=== PATIENT | female | born 1950 | race Caucasian/White ===

== ENCOUNTER → 2019-01-20 | Outpatient (CLI) | payer MEDICARE, OTHER ==
[2019-01-20 14:37] VITALS: RESP 16; BMI 44.0
[2019-01-20 15:33] LABS: HCT 41.5 % (34.0-46.0); HGB 13.6 gm/dL (11.4-16.0); MCH 29.9 pg (25.0-35.0); MCHC 32.8 g/dL (31.0-37.0); Mean Platelet Volume 7.1; Platelet Count 251 k/uL (150-450); RBC 4.56 m/uL (3.80-5.40); RDW 12.9 % (11.5-15.5)
--- NOTE | 2019-01-20 16:31 | P.HPBAR ---
Bariatric H&P - History & Physicial H&P Date: 01/20/19 History & Physicial: Visit/CC: Initial Visit Patient initial contact: Initial weight: 119.068 kg Initial weight in pounds: 262.50 Height: 5 ft 4.75 in Initial BMI: 44.0 Last weight: Current weight: 119.068 kg Current weight in pounds: 262.50 Current BMI: 44.0 [place] body weight (based on NIH guidelines): 56.132 kg Excess body weight loss: 0.0% The patient is a 68 year-old F who presents for Bariatric Assessment. Patient rents today for initial consultation. Patient has had lifetime problems obesity. Her BMI is 44. She is interested in the sleeve gastrectomy. Past Medical History Past Medical History: Diabetes Mellitus, Hyperlipidemia, Hypertension, Thyroid Disorder Additional Past Medical History / Comment(s): Type 2 DM, hypothyroidism, History of Any Multi-Drug Resistant Organisms: None Reported Past Psychological History: Depression Additional Psychological History / Comment(s): Takes 60 mg of prozac daily. Smoking Status: Former smoker Surgical - Exam Vital Signs Resp 16 01/20/19 14:32 - General well developed, well nourished, no distress - Eyes PERRL - ENT normal pinna - Neck no masses - Respiratory normal expansion - Cardiovascular Rhythm: regular - Abdomen Abdomen: soft, non tender Results - Labs 01/20/19 15:01 Bariatric Assessment & Plan Plan: RBC with BMI of 44. Patient will be scheduled for EGD. Patient has a good understanding of the sleeve gastrectomy. We went over the risks and benefits of procedure including gastric injury, GERD, dysphagia. Bariatric Checklist Checklist: Plan: Checklist: EGD: 1. Hiatal hernia: 2. H. Pylori: HgbA1c: Vitamin D: Smoking: Former smoker Primary care physician referral: Dr. Rhianna Lopez Psychiatry clearance: Cardiology clearance: Sleep study: Diet journal: VTE risk score: VTE risk level: Rehab needs at discharge:
[2019-01-20 23:36] LABS: Vitamin D 25 Hydroxy 28.5 ng/mL (30.0-100.0)
[2019-01-20 23:38] LABS: African American GFR (CKD) 75.6 (60.0-200.0); Albumin 4.5 g/dL (3.80-4.90); Albumin/Globulin Ratio 1.96 (1.60-3.17); Anion Gap 9.5 mmol/L (4.00-12.00); BUN/Creat Ratio 18.89 Ratio (12.00-20.00); Calcium 10.4 mg/dL (8.7-10.3); Carbon Dioxide 25.5 mmol/L (21.6-31.8); Globulin 2.3 g/dL (1.6-3.3); Non-African American GFR(CKD) 65.2 (60.0-200.0); Potassium 5.3 mmol/L (3.5-5.5); Total Bilirubin 0.3 mg/dL (0.3-1.2); Total Protein 6.8 g/dL (6.2-8.2)
[2019-01-21 02:16] LABS: Hemoglobin A1C 7.9 % (4.0-6.0)
== END ==
LOC: BARWHC3 14:17
PROVIDERS: ATTEND Surgery
DX: E66.01 Morbid (severe) obesity due to excess calories (principal); E44.0 Moderate protein-calorie malnutrition; E55.9 Vitamin D deficiency, unspecified; Z01.818 Encounter for other preprocedural examination; Z68.41 Body mass index [BMI] 40.0-44.9, adult; Z87.891 Personal history of nicotine dependence
CPT/HCPCS: 80053; 82607; 84443; 85027; 82306; 83036; 93005; G0463; 99211

== ENCOUNTER → 2019-03-10 | Outpatient (CLI) | payer MEDICARE, OTHER ==
[2019-03-10 13:37] VITALS: BMI 43.8
== END ==
LOC: BARWHC3 08:46
PROVIDERS: ATTEND Surgery
DX: E66.01 Morbid (severe) obesity due to excess calories (principal); Z68.41 Body mass index [BMI] 40.0-44.9, adult
CPT/HCPCS: 97804

== ENCOUNTER → 2019-04-21 | Day surgery (SDC) | payer MEDICARE, OTHER ==
[2019-04-17 17:58] VITALS: BMI 44.1
[~2019-04-21] MED LIST: INSULIN ASPART (NovoLOG) 100 UNIT/ML VIAL SQ ONE; LACTATED RINGERS 1,000 ML IV ONE; LACTATED RINGERS 1,000 ML IV SCH; LIDOCAINE 1% 20 ML VIAL (10MG/ML) FOR IV START INTRADERMA ONE; LIDOCAINE 1% INJ 10MG/ML (20 ML MDV) ONE; MIDAZOLAM 2 MG/2 ML VIAL ONE; PROPOFOL 10 MG/ML 20 ML VIAL IV ONE; fentaNYL (PF) 50 MCG/ML 2 ML AMP ONE
[2019-04-21 09:38] VITALS: TEMP 97.4
[2019-04-21 09:50] LABS: Glucose,Whole Blood 217 mg/dL (75-99)
--- NOTE | 2019-04-21 10:45 | P.GSHP ---
History of Present Illness H&P Date: 04/21/19 Chief Complaint: Morbid obesity This is a 68-year-old female undergoing workup for sleeve gastric. Patient is obese. Her BMI is 44. Past Medical History Past Medical History: Diabetes Mellitus, Hyperlipidemia, Hypertension, Skin Diso rder, Sleep Apnea/CPAP/BIPAP, Thyroid Disorder Additional Past Medical History / Comment(s): lupus, gets rash on face that comes and goes, doesn't use CPAP History of Any Multi-Drug Resistant Organisms: None Reported Past Surgical History: Breast Surgery, Orthopedic Surgery, Tubal Ligation Additional Past Surgical History / Comment(s): breast reduction, ORIF rt ankle, cyst removed from left breast, dex cataracts, eye surgery for scar tissue dex eyes after cataract surgery Past Anesthesia/Blood Transfusion Reactions: No Reported Reaction Smoking Status: Former smoker - Past Family History Mother Family Medical History: Cancer Father Family Medical History: Cancer Medications and Allergies Home Medications Medication Instructions Recorded Confirmed Type Atorvastatin [Lipitor] 20 mg PO HS 01/20/19 04/17/19 History FLUoxetine HCL 20 mg PO HS 01/20/19 04/17/19 History FLUoxetine HCL [PROzac] 40 mg PO DAILY 01/20/19 04/17/19 History Levothyroxine Sodium [Synthroid] 125 mcg PO DAILY 01/20/19 04/17/19 History Lisinopril [Prinivil] 20 mg PO 1300 01/20/19 04/17/19 History glipiZIDE [Glucotrol] 10 mg PO AC-BRKFST 01/20/19 04/17/19 History metFORMIN HCL 1,000 mg PO BID 01/20/19 04/17/19 History sitaGLIPtin [Januvia] 100 mg PO DAILY 01/20/19 04/17/19 History Nystatin 1 applic TOPICAL DIRECTED 03/10/19 04/17/19 History Allergies Allergy/AdvReac Type Severity Reaction Status Date / Time No Known Allergies Allergy Verified 04/17/19 17:38 Surgical - Exam Vital Signs Temp Pulse Resp BP Pulse Ox 97.4 F L 76 18 159/77 98 04/21/19 09:37 04/21/19 09:37 04/21/19 09:37 04/21/19 09:37 04/21/19 09:37 - General well developed, well nourished, no distress - Eyes PERRL - ENT normal pinna - Neck no masses - Respiratory normal expansion - Cardiovascular Rhythm: regular - Abdomen Abdomen: soft, non tender Results - Labs Abnormal Lab Results - Last 24 Hours (Table) 04/21/19 Range/Units 09:48 POC Glucose (mg/dL) 217 H (75-99) mg/dL Assessment and Plan Assessment: Morbid obesity. We'll perform EGD.
--- NOTE | 2019-04-21 10:51 | P.OP ---
Date of Procedure: 04/21/19 Preoperative Diagnosis: Morbid obesity Postoperative Diagnosis: Morbid obesity Antral gastritis Procedure(s) Performed: EGD Anesthesia: MAC Surgeon: Hung Carpio Pathology: other (Antrum) Condition: stable Disposition: PACU Description of Procedure: The patient's placed on the endoscopy table lateral position. She received IV sedation. The gastroscope placed oropharynx passed in the esophagus and stomach. Scope was then placed through the pylorus. The first and second portion of the duodenum appeared normal. Scope was then brought back the antrum this. Mildly inflamed. A biopsies performed. Scope was then retroflexed and the remainder stomach appeared normal. The GE junction was at 47 is. The distal esophagus appeared normal. The proximal esophagus appeared normal. Scope withdrawn for patient.
[2019-04-21 10:57] VITALS: RESP 16
[2019-04-21 11:07] VITALS: BP 107/73; PULSE 65
[2019-04-21 11:09] LABS: Glucose,Whole Blood 179 mg/dL (75-99)
== END | disposition home or self-care (01) ==
LOC: ORWHC2ENDO 09:15
PROVIDERS: ATTEND Surgery
DX: K29.50 Unspecified chronic gastritis without bleeding (principal); E66.01 Morbid (severe) obesity due to excess calories; I10 Essential (primary) hypertension; E11.9 Type 2 diabetes mellitus without complications; E78.5 Hyperlipidemia, unspecified; F32.9 Major depressive disorder, single episode, unspecified; G47.30 Sleep apnea, unspecified; E07.9 Disorder of thyroid, unspecified; M32.9 Systemic lupus erythematosus, unspecified; Z99.89 Dependence on other enabling machines and devices; Z98.890 Other specified postprocedural states; Z98.51 Tubal ligation status; Z98.41 Cataract extraction status, right eye; Z98.42 Cataract extraction status, left eye; Z87.891 Personal history of nicotine dependence; Z79.899 Other long term (current) drug therapy; Z79.84 Long term (current) use of oral hypoglycemic drugs; Z79.890 Hormone replacement therapy; Z68.41 Body mass index [BMI] 40.0-44.9, adult
CPT/HCPCS: 88305; 43239; J2250; J2001; J3010; J2704

== ENCOUNTER → 2019-05-19 | Outpatient (CLI) | payer MEDICARE, OTHER ==
[2019-05-19 13:29] VITALS: BP 126/87; PULSE 84; TEMP 97.8; BMI 43.7
--- NOTE | 2019-07-06 12:56 | P.HPBAR ---
Bariatric H&P - History & Physicial H&P Date: 05/19/19 History & Physicial: Visit/CC: EGD review, presurgical consultation Patient initial contact: Initial weight: 119.068 kg Initial weight in pounds: 262.50 Height: 5 ft 4.75 in Initial BMI: 44.0 Last weight: Current weight: 118.388 kg Current weight in pounds: 261.00 Current BMI: 43.7 [place] body weight (based on NIH guidelines): 56.132 kg Excess body weight loss: 1.0% The patient is a 68 year-old F who presents for Bariatric Assessment. She presents today for presurgical consultation. She has an excellent understanding of the sleeve gastrectomy. Her BMI is 43. Patient is aware the risks of surgery including conversion to the open procedure injury to the stomach liver spleen vagotomy dysphagia and recurrent GERD symptoms. She is also aware the risk of gastric staple line disruption, bleeding or scarring. Past Medical History Past Medical History: Diabetes Mellitus, Hyperlipidemia, Hypertension, Skin Disorder, Sleep Apnea/CPAP/BIPAP, Thyroid Disorder Additional Past Medical History / Comment(s): lupus, gets rash on face that comes and goes, doesn't use CPAP History of Any Multi-Drug Resistant Organisms: None Reported Past Surgical History: Breast Surgery, Orthopedic Surgery, Tubal Ligation Additional Past Surgical History / Comment(s): breast reduction, ORIF rt ankle, cyst removed from left breast, dex cataracts, eye surgery for scar tissue dex eyes after cataract surgery Past Anesthesia/Blood Transfusion Reactions: No Reported Reaction Past Psychological History: Depression Additional Psychological History / Comment(s): . Smoking Status: Former smoker Past Alcohol Use History: Rare Additional Past Alcohol Use History / Comment(s): quit smoking 2011, smoked for 5 yrs, 1 PPD Past Drug Use History: None Reported - Past Family History Mother Family Medical History: Cancer Father Family Medical History: Cancer Surgical - Exam Vital Signs Temp Pulse BP 97.8 F 84 126/87 05/19/19 13:26 05/19/19 13:26 05/19/19 13:26 - General well developed, well nourished, no distress - Eyes PERRL - Abdomen Abdomen: soft, non tender Bariatric Assessment & Plan Plan: Morbid obesity BMI 43. Patient will be scheduled for sleeve gastrectomy. QUESTIONS WERE ANSWERED IN THE OFFICE. Bariatric Checklist Checklist: Plan: Checklist: EGD: 1. Hiatal hernia: 2. H. Pylori: HgbA1c: Vitamin D: Smoking: Former smoker Primary care physician referral: Rhianna Lopez ([employer] in [place]) Psychiatry clearance: Cardiology clearance: Sleep study: Diet journal: VTE risk score: VTE risk level: Rehab needs at discharge:
== END | disposition home or self-care (01) ==
LOC: BARWHC3 12:57
PROVIDERS: ATTEND Surgery
DX: E66.01 Morbid (severe) obesity due to excess calories (principal); Z68.41 Body mass index [BMI] 40.0-44.9, adult; Z87.891 Personal history of nicotine dependence; Z98.51 Tubal ligation status
CPT/HCPCS: 80053; 85025; 99211

== ENCOUNTER → 2019-05-19 | Outpatient (CLI) | payer MEDICARE, OTHER ==
[2019-05-19 16:30] LABS: Basophils # (A) 0.1 k/uL (0-0.2); Basophils % (A) 1 %; Eosinophils # (A) 0.2 k/uL (0-0.7); Eosinophils % (A) 2 %; HCT 44.1 % (34.0-46.0); HGB 14.1 gm/dL (11.4-16.0); Lymphocytes # (A) 1.7 k/uL (1.0-4.8); Lymphocytes % (A) 21 %; MCH 29.3 pg (25.0-35.0); MCHC 32.1 g/dL (31.0-37.0); MCV 91.3 fL (80.0-100.0); Mean Platelet Volume 7.6; Monocytes # (A) 0.6 k/uL (0-1.0); Monocytes % (A) 8 %; Neutrophils # (A) 5.3 k/uL (1.3-7.7); Neutrophils % (A) 66 %; Platelet Count 255 k/uL (150-450); RBC 4.83 m/uL (3.80-5.40); RDW 12.7 % (11.5-15.5)
[2019-05-19 16:45] LABS: Albumin 4.6 g/dL (3.5-5.0); Calcium 10.4 mg/dL (8.4-10.2); Potassium 5.2 mmol/L (3.5-5.1); Total Bilirubin 0.7 mg/dL (0.2-1.3); Total Protein 7.9 g/dL (6.3-8.2)
== END ==
LOC: LABPAT 14:21
PROVIDERS: ATTEND Surgery
DX: Z01.812 Encounter for preprocedural laboratory examination (principal)
CPT/HCPCS: 80053; 85025

== ENCOUNTER 2019-06-05 07:40 | Inpatient (IN) | payer MEDICARE, OTHER ==
[~2019-06-05 07:40] MED LIST changes: +DEXAMETHASONE SOD PHOSPHATE 10 MG/ML 1 ML VIAL IV ONE; +ENOXAPARIN 40 MG/0.4 ML SYRINGE SQ ONE; -INSULIN ASPART (NovoLOG) 100 UNIT/ML VIAL SQ ONE; -LACTATED RINGERS 1,000 ML IV ONE; -LACTATED RINGERS 1,000 ML IV SCH; -LIDOCAINE 1% 20 ML VIAL (10MG/ML) FOR IV START INTRADERMA ONE; +LIDOCAINE 1% 20 ML VIAL (10MG/ML) FOR IV START INTRADERMA PRN; -LIDOCAINE 1% INJ 10MG/ML (20 ML MDV) ONE; +MIDAZOLAM 2 MG/2 ML VIAL IV PRN; -MIDAZOLAM 2 MG/2 ML VIAL ONE; +ONDANSETRON 4 MG/2 ML VIAL IVP ONE; -PROPOFOL 10 MG/ML 20 ML VIAL IV ONE; +SCOPOLAMINE 1.5MG/72HR PATCH TRANSDERM ONE; -fentaNYL (PF) 50 MCG/ML 2 ML AMP ONE
[2019-06-05 09:14] LABS: Glucose,Whole Blood 116 mg/dL (75-99)
--- NOTE | 2019-06-05 09:19 | P.GSHP ---
History of Present Illness H&P Date: 06/05/19 Chief Complaint: morbid obesity this is a 68-year-old female who presents today for laparoscopic sleeve yesterday. Patient morbidly obese. Her BMI is 43. Patient's had lifetime problems obesity. Patient went versus surgery including conversion to the open procedure and injury to the stomach liver spleen. She also a risk of gastric staple line disruption, bleeding or scarring. Past Medical History Past Medical History: Diabetes Mellitus, Hyperlipidemia, Hypertension, Skin Disorder, Sleep Apnea/CPAP/BIPAP, Thyroid Disorder Additional Past Medical History / Comment(s): lupus, gets rash on face that co mes and goes, doesn't use CPAP History of Any Multi-Drug Resistant Organisms: None Reported Past Surgical History: Breast Surgery, Orthopedic Surgery, Tubal Ligation Additional Past Surgical History / Comment(s): breast reduction, ORIF rt ankle, cyst removed from left breast, dex cataracts, eye surgery for scar tissue dex eyes after cataract surgery. Colonoscopy. EGD Past Anesthesia/Blood Transfusion Reactions: No Reported Reaction Smoking Status: Former smoker - Past Family History Mother Family Medical History: Cancer Father Family Medical History: Cancer Medications and Allergies Home Medications Medication Instructions Recorded Confirmed Type Atorvastatin [Lipitor] 20 mg PO HS 01/20/19 06/03/19 History FLUoxetine HCL 20 mg PO HS 01/20/19 06/03/19 History FLUoxetine HCL [PROzac] 40 mg PO DAILY 01/20/19 06/03/19 History Levothyroxine Sodium [Synthroid] 125 mcg PO DAILY 01/20/19 06/03/19 History Lisinopril [Prinivil] 20 mg PO 1300 01/20/19 06/03/19 History glipiZIDE [Glucotrol] 10 mg PO AC-BRKFST 01/20/19 06/03/19 History metFORMIN HCL 1,000 mg PO BID 01/20/19 06/03/19 History sitaGLIPtin [Januvia] 100 mg PO DAILY 01/20/19 06/03/19 History Nystatin 1 applic TOPICAL DIRECTED PRN 03/10/19 06/03/19 History Allergies Allergy/AdvReac Type Severity Reaction Status Date / Time No Known Allergies Allergy Verified 06/03/19 15:18 Surgical - Exam Vital Signs Temp Pulse Resp BP Pulse Ox 98.6 F 81 18 120/83 95 06/05/19 08:59 12/19/19 08:59 06/05/19 08:59 06/05/19 08:59 06/05/19 08:59 BMI 43 - General well developed, well nourished, no distress - Eyes PERRL - ENT normal pinna - Neck no masses, no bruits - Respiratory normal expansion - Cardiovascular Rhythm: regular - Abdomen Abdomen: soft, non tender Results - Labs Abnormal Lab Results - Last 24 Hours (Table) 06/05/19 Range/Units 09:13 POC Glucose (mg/dL) 116 H (75-99) mg/dL Assessment and Plan Assessment: morbid obesity, BMI 43. We'll perform laparoscopic sleeve gastrectomy.
[2019-06-05] MEDS ORDERED: LACTATED RINGERS 1,000 ML IV ONE (09:22)
[2019-06-05] MEDS ORDERED: MIDAZOLAM 2 MG/2 ML VIAL ONE (09:44)
[2019-06-05] MEDS ORDERED: NEOSTIGMINE 1 MG/ML 10 ML VIAL ONE (09:44)
[2019-06-05] MEDS ORDERED: ePHEDrine SULFATE/0.9% NACL/PF 50 MG/5 ML SYRINGE IV ONE (09:44)
[2019-06-05] MEDS ORDERED: PROPOFOL 10 MG/ML 20 ML VIAL IV ONE (09:44)
[2019-06-05] MEDS ORDERED: ROCURONIUM BROMIDE 10 MG/ML 10 ML VIAL IV ONE (09:44)
[2019-06-05] MEDS ORDERED: LIDOCAINE 1% INJ 10MG/ML (20 ML MDV) ONE (09:44)
[2019-06-05] MEDS ORDERED: fentaNYL (PF) 50 MCG/ML 2 ML AMP ONE (09:44)
[2019-06-05] MEDS ORDERED: SUCCINYLCHOLINE CHLORIDE 100 MG/5 ML SYR IV ONE (09:44)
[2019-06-05] MEDS ORDERED: HYDROmorphone (PF) 1 MG/ML ONE (09:44)
[2019-06-05] MEDS ORDERED: PHENYLEPHRINE-0.9% NACL SYG 1 MG/10 ML SYRINGE ONE (09:44)
[2019-06-05] MEDS ORDERED: GLYCOPYRROLATE 0.2 MG/ML 2 ML VIAL ONE (09:44)
[2019-06-05] MEDS ORDERED: BUPIVACAIN-EPI 0.25%-1:200,000 30 ML VIAL SQ ONE (10:16)
[2019-06-05] MEDS ORDERED: SIMETHICONE 40 MG/0.6 ML DROPS 2,000 MG/30 ML BOTTLE PO PRN (11:03)
[2019-06-05] MEDS ORDERED: diphenhydrAMINE 50 MG/ML 1 ML VIAL IVP PRN (11:03)
[2019-06-05] MEDS ORDERED: NALOXONE 0.4 MG/ML 1 ML VIAL IV PRN (11:03)
[2019-06-05] MEDS ORDERED: HYDROcodone/APAP 15 ML SOLUTION PO PRN (11:03)
[2019-06-05] MEDS ORDERED: HYOSCYAMINE ORAL DROPS 1.875 MG/15 ML BOTTLE PO PRN (11:03)
[2019-06-05] MEDS ORDERED: HYDROmorphone 1 MG/ML 1 ML SYRINGE IVP PRN (11:03)
--- NOTE | 2019-06-05 11:03 | P.OP ---
Date of Procedure: 06/05/19 Preoperative Diagnosis: morbid obesity, BMI 43 Postoperative Diagnosis: morbid obesity, BMI 43 Procedure(s) Performed: llaparoscopic sleeve gastrectomy Anesthesia: EVAN Surgeon: Hung Carpio Estimated Blood Loss (ml): 30 Pathology: other (stomach) Condition: stable Disposition: PACU Description of Procedure: The patient was placed on the operating room table in the supine position. She received general anesthesia and then was placed in dorsal lithotomy position. Her abdomen was prepped and draped in sterile fashion. The skin incision sites were anesthetized 1% local Xylocaine. And then the skin was incised with an 11 blade in the left lateral position. Using a blade less trocar under direct visualization the peritoneal cavity was entered. The abdomen was insufflated and then a 5 mm laparoscope was placed into the peritoneal cavity. A 5 mm trocar was placed in the right epigastric, and right lateral position. A 15 mm trocar was placed in the supra-umbilical position and another 5 mm trocar was placed in the left lateral position. The left lateral lobe of the liver was retracted. The stomach was visualized. The greater curvature of the stomach was then dissected using the Harmonic scissors. The dissection occurred approximately 5 cm from the pylorus to the level of the left maia. There was no hiatal hernia seen. At this point a 40-Mauritian bougie dilator was placed the oropharynx and passed into the esophagus and into the stomach by the [employer]. The sleeve gastrectomy was performed by using the powered echelon stapler with a seam guard buttress material. Sequential firings of the stapler were performed. The gastric remnant was then brought out through the 15 mm trocar site. The dilator was withdrawn. And a orogastric tube was replaced into the stomach. The stomach was insufflated with 200 mL of methylene blue normal saline. There was no evidence of extravasation. The abdomen was irrigated there is no bleeding seen. The Deshawn-Chaitanya device was used to close the 15 mm trocar with 0 Vicryl. Skin was closed with interrupted 3-0 Monocryl sutures once the trochars withdrawn. Dermabond dressing was applied. Patient was sent to recovery in stable condition.
[2019-06-05 11:22] LABS: Glucose,Whole Blood 221 mg/dL (75-99)
[2019-06-05] MEDS: LACTATED RINGERS 1,000 ML IV SCH (11:22)
[2019-06-05] MEDS ORDERED: INSULIN ASPART (NovoLOG) 100 UNIT/ML VIAL SQ ONE (11:28)
[2019-06-05] MEDS: KETOROLAC 30 MG/ML 1 ML VIAL IVP SCH ×2 (11:39→20:53)
[2019-06-05] MEDS: HYDROmorphone 0.5 MG/0.5 ML SYRINGE IVP PRN ×4 (11:39→14:11)
[2019-06-05] MEDS: ONDANSETRON 4 MG/2 ML VIAL IVP PRN ×2 (11:39→21:00)
[2019-06-05] MEDS ORDERED: PROMETHAZINE INJ 25 MG/ML 1 ML VIAL IVPB ONE (14:11)
[2019-06-05] MEDS ORDERED: NYSTATIN 100,000UNIT/GM CREAM 30 GM TUBE TOPICAL PRN (15:09)
--- NOTE | 2019-06-05 15:45 | P.CONS ---
History of Present Illness - Reason for Consult hyperkalemia, hypertension and DM2 - History of Present Illness Patient is a pleasant 68-year-old male came in for elective sleeve gastrectomy and underwent Surgery patient is still coming out of anesthesia because of which patient is unable to provide much of the history. Patient does have history of diabetes mellitus type 2 multiple on oral hypoglycemic agents and does have history of hypertension because of which patient is on amlodipine as well as lis inopril patient on 20 mg of lisinopril unsure whether patient took this medication today as patient I was unable to provide me much of the history as patient is drowsy sleepy and still coming out of anesthesia although patient denied any complaints at this time. Patient does have mild hyperkalemia with the serum potassium of 5.4 non-hemolyzed sample. This probably because of lisinopril because of which I'm cutting down the lisinopril to 10 mg daily and will repeat the potassium tomorrow. She will not receive any lisinopril today Review of Systems Unable to obtain due to her clinical condition rest of the review of systems is negative and as mentioned in the HPI Past Medical History Past Medical History: Diabetes Mellitus, Hyperlipidemia, Hypertension, Skin Disorder, Sleep Apnea/CPAP/BIPAP, Thyroid Disorder Additional Past Medical History / Comment(s): lupus, gets rash on face that comes and goes, doesn't use CPAP History of Any Multi-Drug Resistant Organisms: None Reported Past Surgical History: Breast Surgery, Orthopedic Surgery, Tubal Ligation Additional Past Surgical History / Comment(s): breast reduction, ORIF rt ankle, cyst removed from left breast, dex cataracts, eye surgery for scar tissue dex eyes after cataract surgery. Colonoscopy. EGD Past Anesthesia/Blood Transfusion Reactions: No Reported Reaction Smoking Status: Former smoker - Past Family History Mother Family Medical History: Cancer Father Family Medical History: Cancer Medications and Allergies Home Medications Medication Instructions Recorded Confirmed Type Atorvastatin [Lipitor] 20 mg PO HS 01/20/19 06/03/19 History FLUoxetine HCL 20 mg PO HS 01/20/19 06/03/19 History FLUoxetine HCL [PROzac] 40 mg PO DAILY 01/20/19 06/03/19 History Levothyroxine Sodium [Synthroid] 125 mcg PO DAILY 01/20/19 06/03/19 History Lisinopril [Prinivil] 20 mg PO 1300 01/20/19 06/03/19 History glipiZIDE [Glucotrol] 10 mg PO AC-BRKFST 01/20/19 06/03/19 History metFORMIN HCL 1,000 mg PO BID 01/20/19 06/03/19 History sitaGLIPtin [Januvia] 100 mg PO DAILY 01/20/19 06/03/19 History Nystatin 1 applic TOPICAL DIRECTED PRN 03/10/19 06/03/19 History Allergies Allergy/AdvReac Type Severity Reaction Status Date / Time No Known Allergies Allergy Verified 06/03/19 15:18 Physical Exam Vitals: Vital Signs Temp Pulse Resp BP BP Pulse Ox 06/05/19 14:20 92 16 159/89 92 L 06/05/19 14:02 83 16 179/89 93 L 06/05/19 13:27 80 16 160/93 93 L 06/05/19 13:08 43 L 16 159/62 99 06/05/19 13:03 83 16 179/88 94 L 06/05/19 12:31 80 16 158/76 93 L 06/05/19 12:15 82 16 153/74 94 L 06/05/19 12:00 85 16 153/74 92 L 06/05/19 11:45 86 16 153/69 92 L 06/05/19 11:30 86 16 175/77 92 L 06/05/19 11:21 91 16 155/70 92 L 06/05/19 11:05 97.8 F 97 12 154/74 93 L 06/05/19 08:59 98.6 F 81 18 120/83 95 Intake and Output 06/05/19 06/05/19 06/05/19 06:59 14:59 22:59 Intake Total 1175 Output Total 10 Balance 1165 Intake: IV 1175 Output: Estimated Blood Loss 10 Other: Weight 115 kg PHYSICAL EXAMINATION: GENERAL: The patient is drowsy sleep and able to assess his orientation, not in any acute distress. Well developed, well nourished. HEENT: Pupils are round and equally reacting to light. EOMI. No scleral icterus. No conjunctival pallor. Normocephalic, atraumatic. No pharyngeal erythema. No thyromegaly. CARDIOVASCULAR: S1 and S2 present. No murmurs, rubs, or gallops. PULMONARY: Chest is clear to auscultation, no wheezing or crackles. ABDOMEN: Soft, nontender, nondistended, normoactive bowel sounds. No palpable organomegaly. MUSCULOSKELETAL: No joint swelling or deformity. EXTREMITIES: No cyanosis, clubbing, or pedal edema. NEUROLOGICAL: Unable to assess SKIN: No rashes. Results CBC & Chem 7: 06/05/19 09:20 Labs: Abnormal Lab Results - Last 24 Hours (Table) 06/05/19 06/05/19 06/05/19 Range/Units 09:13 09:20 11:20 Potassium 5.4 H (3.5-5.1) mmol/L POC Glucose (mg/dL) 116 H 221 H (75-99) mg/dL Assessment and Plan Plan: -Hyperkalemia: Secondary to lisinopril dose of which will be decreased and will repeat basic metabolic profile tomorrow -Type 2 diabetes mellitus patient's Januvia will be continued as it doesn't cause much of hypoglycemia patient was started on sliding scale insulin and as patient is not can eat much other sulfonylureas will be held, metformin will be held and the leg and the serum creatinine. Patient will be on sliding scale insulin. -Hypertension: Patient will be resumed on amlodipine, and decrease the dose of lisinopril, recheck the potassium tomorrow -Sleep apnea uses CPAP machine at home next and-obesity Patient is status post laparoscopic sleeve gastrectomy -Hypothyroidism -Hyperlipidemia- -depression Omission chronic medical problems patient will be resumed on appropriate home medications.
[2019-06-05] MEDS: ALBUTEROL NEBULIZED 2.5 MG/3 ML INHALATION SCH ×3 (16:17→20:58)
[2019-06-05] MEDS: 0.9% NACL WITH KCL 20 MEQ/L 1,000 ML IV SCH ×2 (16:36→23:27)
[2019-06-05] MEDS: ATORVASTATIN 20 MG TAB PO SCH (20:53)
[2019-06-05] MEDS: FLUoxetine HCL 20 MG CAP PO SCH (20:53)
[2019-06-05] MEDS: ENOXAPARIN 40 MG/0.4 ML SYRINGE SQ SCH (22:09)
[2019-06-05] MEDS ORDERED: METOCLOPRAMIDE 5 MG/ML 2 ML VIAL IVP PRN (23:47)
[2019-06-05] MEDS ORDERED: ONDANSETRON 4 MG/2 ML VIAL IVP STA (23:53)
[2019-06-06] MEDS: 0.9% NACL WITH KCL 20 MEQ/L 1,000 ML IV SCH ×2 (00:10→10:04)
[2019-06-06] MEDS: LACTATED RINGERS 1,000 ML IV SCH (02:01)
[2019-06-06] MEDS: KETOROLAC 30 MG/ML 1 ML VIAL IVP SCH ×4 (03:38→22:16)
[2019-06-06] MEDS: LEVOTHYROXINE 125 MCG TAB PO SCH (04:54)
[2019-06-06] MEDS: ONDANSETRON 4 MG/2 ML VIAL IVP PRN (05:11)
[2019-06-06] MEDS: ALBUTEROL NEBULIZED 2.5 MG/3 ML INHALATION SCH ×4 (07:20→19:25)
[2019-06-06] MEDS ORDERED: METOCLOPRAMIDE 5 MG/ML 2 ML VIAL IVP STA (07:57)
[2019-06-06] MEDS: PANTOPRAZOLE 40 MG/10 ML VIAL IV SCH (08:19)
[2019-06-06] MEDS: ENOXAPARIN 40 MG/0.4 ML SYRINGE SQ SCH ×2 (08:21→22:11)
[2019-06-06 08:31] LABS: Basophils % (A) 0 %; Eosinophils % (A) 0 %; HCT 37.8 % (34.0-46.0); HGB 12.5 gm/dL (11.4-16.0); Lymphocytes # (A) 1.2 k/uL (1.0-4.8); Lymphocytes % (A) 12 %; MCH 30.3 pg (25.0-35.0); MCHC 32.9 g/dL (31.0-37.0); Mean Platelet Volume 7.9; Monocytes # (A) 0.8 k/uL (0-1.0); Monocytes % (A) 8 %; Neutrophils # (A) 7.7 k/uL (1.3-7.7); Neutrophils % (A) 78 %; Platelet Count 231 k/uL (150-450); RBC 4.11 m/uL (3.80-5.40); RDW 12.7 % (11.5-15.5)
[2019-06-06 08:48] LABS: Calcium 9.1 mg/dL (8.4-10.2); Magnesium 1.3 mg/dL (1.6-2.3); Phosphorus 2.4 mg/dL (2.5-4.5); Potassium 4.8 mmol/L (3.5-5.1)
--- NOTE | 2019-06-06 09:07 | FL ---
EXAMINATION TYPE: FL UGI DATE OF EXAM: 06/06/2019 COMPARISON: None HISTORY: Gastric sleeve TECHNIQUE: A single contrast UGI study is performed. FINDINGS: Contrast passes from the distal esophagus through the gastric sleeve with mild hesitancy. N o extravasation of contrast is evident. No free air is noted during this examination. Overhead radiographs were obtained which are unremarkable. Fluoroscopy time 1 minute 9 seconds. Images: 13 IMPRESSIONS: 1. Normal post gastric sleeve without obstruction or hesitancy. No extravasation.
[2019-06-06] MEDS ORDERED: TAMSULOSIN 0.4 MG CAP.ER.24H PO STA (09:38)
[2019-06-06] MEDS: LINAGLIPTIN 5 MG TABLET PO SCH (09:58)
[2019-06-06] MEDS: FLUoxetine HCL 20 MG CAP PO SCH ×2 (10:03→22:10)
[2019-06-06] MEDS ORDERED: SODIUM CHLORIDE 0.9% 1,000 ML IV ONE (12:44)
--- NOTE | 2019-06-06 13:15 | P.PN ---
Progress Note - Text Progress Note Date: 06/06/19 the patient's complaints of nausea. Her esophagram performed today shows no evidence of leak or obstruction. On exam her vital signs are stable. Her abdomen soft. Status post sleeve gastrectomy. Patient will be discharged home tomorrow.
[2019-06-06] MEDS ORDERED: LACTATED RINGERS 1,000 ML IV SCH (13:30)
[2019-06-06 14:03] VITALS: BMI 42.2
--- NOTE | 2019-06-06 14:21 | P.PN ---
Subjective patient is having nausea vomiting multiple episodes today. procedure impressive improved to 4.8. magnesium was low which will be supplemented. Constitutional: Denied any fatigue denied any fever. Cardio vascular: denied any chest pain, palpitations Gastrointestinal as mentioned in the interval history Pulmonary: Denied any shortness of breath cough Neurologic denied any new focal deficits All inpatient medications were reviewed and appropriate changes in these medications as dictated in the interval history and assessment and plan. Objective - Vital Signs Vital signs: Vital Signs Temp 98.3 F 06/06/19 13:51 Pulse 92 06/06/19 13:51 Resp 16 06/06/19 13:51 BP 152/84 06/06/19 13:51 Pulse Ox 98 06/06/19 13:51 Intake & Output 06/05/19 06/06/19 06/06/19 18:59 06:59 18:59 Intake Total 1175 50 Output Total 10 1700 Balance 1165 -1650 Weight 115 kg 115 kg 115 kg Intake: IV 1175 Oral 50 Output: Urine 1100 Straight 1100 Post Void Residual 600 Estimated Blood Loss 10 - Exam PHYSICAL EXAMINATION: GENERAL: The patient is drowsy sleep and able to assess his orientation, not in any acute distress. Well developed, well nourished. HEENT: Pupils are round and equally reacting to light. EOMI. No scleral icterus. No conjunctival pallor. Normocephalic, atraumatic. No pharyngeal erythema. No thyromegaly. CARDIOVASCULAR: S1 and S2 present. No murmurs, rubs, or gallops. PULMONARY: Chest is clear to auscultation, no wheezing or crackles. ABDOMEN: Soft, nontender, nondistended, normoactive bowel sounds. No palpable organomegaly. MUSCULOSKELETAL: No joint swelling or deformity. EXTREMITIES: No cyanosis, clubbing, or pedal edema. NEUROLOGICAL: Unable to assess SKIN: No rashes. - Labs CBC & Chem 7: 06/06/19 08:03 06/06/19 08:03 Labs: Abnormal Lab Results - Last 24 Hours (Table) 06/06/19 Range/Units 08:03 Chloride 108 H (98-107) mmol/L Phosphorus 2.4 L (2.5-4.5) mg/dL Magnesium 1.3 L (1.6-2.3) mg/dL Assessment and Plan Plan: -Hyperkalemia: Secondary to lisinopril,decrease the dose potassium improved -Type 2 diabetes mellitus patient's blood sugars are fairly well controlled continue with present regimen -Hypertension: continue with amlodipine and low-dose of lisinopril -Sleep apnea uses CPAP machine at home -obesity Patient is status post laparoscopic sleeve gastrectomy -Hypothyroidism -Hyperlipidemia- -depression
[2019-06-06] MEDS ORDERED: ONDANSETRON 4 MG TAB PO STA (15:52)
[2019-06-06] MEDS ORDERED: SCOPOLAMINE 1.5MG/72HR PATCH TRANSDERM STA (15:52)
[2019-06-06] MEDS: LISINOPRIL 10 MG TAB PO SCH (16:19)
[2019-06-06] MEDS: 1: MVI, ADULT NO.4 WITH VIT K 10 ML, THIAMINE 100 MG, FOLIC ACID 1 MG, POTASSIUM CHLORID IV SCH ×12 (18:07→22:14)
[2019-06-06] MEDS: MAGNESIUM SULFATE-D5W PMX 1 GM in DEXTROSE/WATER 1 100ML.BAG IVPB SCH ×3 (18:08→23:44)
[2019-06-06] MEDS: ATORVASTATIN 20 MG TAB PO SCH (22:10)
[2019-06-07] MEDS: LACTATED RINGERS 1,000 ML IV SCH (04:26)
[2019-06-07] MEDS: LEVOTHYROXINE 125 MCG TAB PO SCH (04:27)
[2019-06-07] MEDS: 1: MVI, ADULT NO.4 WITH VIT K 10 ML, THIAMINE 100 MG, FOLIC ACID 1 MG, POTASSIUM CHLORID IV SCH ×12 (05:40→15:26)
[2019-06-07] MEDS: KETOROLAC 30 MG/ML 1 ML VIAL IVP SCH ×2 (05:42→09:03)
[2019-06-07] MEDS: ALBUTEROL NEBULIZED 2.5 MG/3 ML INHALATION SCH ×4 (07:17→19:00)
[2019-06-07] MEDS: PANTOPRAZOLE 40 MG/10 ML VIAL IV SCH (07:31)
[2019-06-07] MEDS: ONDANSETRON 4 MG/2 ML VIAL IVP PRN ×2 (07:31→14:56)
[2019-06-07] MEDS: ENOXAPARIN 40 MG/0.4 ML SYRINGE SQ SCH ×2 (07:31→20:12)
[2019-06-07] MEDS: LISINOPRIL 10 MG TAB PO SCH (08:21)
[2019-06-07] MEDS: FLUoxetine HCL 20 MG CAP PO SCH ×2 (09:03→20:11)
[2019-06-07] MEDS: LINAGLIPTIN 5 MG TABLET PO SCH (09:03)
--- NOTE | 2019-06-07 11:28 | P.PN ---
Progress Note - Text Progress Note Date: 06/07/19 patient still has some complaints of nausea. On exam her vital signs are stable. Her abdomen soft. Patient status post sleeve yesterday. She is tolerating diet. She'll be discharged home tomorrow once her nausea has improved.
--- NOTE | 2019-06-07 15:09 | P.PN ---
Subjective patient is having nausea vomiting multiple episodes today. procedure impressive improved to 4.8. magnesium was low which will be supplemented. 06/07/2019 Patient is doing better today patient is being started on diet today. Constitutional: Denied any fatigue denied any fever. Cardio vascular: denied any chest pain, palpitations Gastrointestinal as mentioned in the interval history Pulmonary: Denied any shortness of breath cough Neurologic denied any new focal deficits All inpatient medications were reviewed and appropriate changes in these medications as dictated in the interval history and assessment and plan. Objective - Vital Signs Vital signs: Vital Signs Temp 98.2 F 06/07/19 13:45 Pulse 90 06/07/19 13:45 Resp 18 06/07/19 13:45 BP 164/82 06/07/19 13:45 Pulse Ox 100 06/07/19 13:45 Intake & Output 06/06/19 06/07/19 06/07/19 18:59 06:59 18:59 Intake Total 150 Output Total 200 Balance 150 -200 Weight 115 kg Intake: Oral 150 Output: Urine 200 Other: # Voids 1 2 - Exam PHYSICAL EXAMINATION: GENERAL: The patient is drowsy sleep and able to assess his orientation, not in any acute distress. Well developed, well nourished. HEENT: Pupils are round and equally reacting to light. EOMI. No scleral icterus. No conjunctival pallor. Normocephalic, atraumatic. No pharyngeal erythema. No thyromegaly. CARDIOVASCULAR: S1 and S2 present. No murmurs, rubs, or gallops. PULMONARY: Chest is clear to auscultation, no wheezing or crackles. ABDOMEN: Soft, nontender, nondistended, normoactive bowel sounds. No palpable organomegaly. MUSCULOSKELETAL: No joint swelling or deformity. EXTREMITIES: No cyanosis, clubbing, or pedal edema. NEUROLOGICAL: Unable to assess SKIN: No rashes. - Labs CBC & Chem 7: 06/06/19 08:03 06/06/19 08:03 Assessment and Plan Plan: -Hyperkalemia: Secondary to lisinopril,decrease the dose potassium improved -Type 2 diabetes mellitus patient's blood sugars are fairly well controlled continue with present regimen -Hypertension: continue with amlodipine and low-dose of lisinopril -Sleep apnea uses CPAP machine at home -obesity Patient is status post laparoscopic sleeve gastrectomy -Hypothyroidism -Hyperlipidemia- -depression
[2019-06-07] MEDS: ATORVASTATIN 20 MG TAB PO SCH (20:12)
[2019-06-08] MEDS: 1: MVI, ADULT NO.4 WITH VIT K 10 ML, THIAMINE 100 MG, FOLIC ACID 1 MG, POTASSIUM CHLORID IV SCH ×18 (02:14→21:12)
[2019-06-08] MEDS: LACTATED RINGERS 1,000 ML IV SCH (05:24)
[2019-06-08] MEDS: LEVOTHYROXINE 125 MCG TAB PO SCH (05:58)
[2019-06-08 07:00] LABS: African American GFR (CKD) >90 (>60 ml/min/1.73 sqM); Anion Gap 6 mmol/L; Blood Urea Nitrogen 6 mg/dL (7-17); Calcium 8.5 mg/dL (8.4-10.2); Carbon Dioxide 24 mmol/L (22-30); Chloride 109 mmol/L (98-107); Glucose 137 mg/dL (74-99); Magnesium 1.5 mg/dL (1.6-2.3); Non-African American GFR(CKD) 88 (>60 ml/min/1.73 sqM); Potassium 4.4 mmol/L (3.5-5.1); Sodium 139 mmol/L (137-145)
[2019-06-08] MEDS: ALBUTEROL NEBULIZED 2.5 MG/3 ML INHALATION SCH ×4 (08:31→20:19)
[2019-06-08] MEDS: ONDANSETRON 4 MG/2 ML VIAL IVP PRN ×2 (09:00→14:17)
[2019-06-08] MEDS: PANTOPRAZOLE 40 MG/10 ML VIAL IV SCH (09:10)
[2019-06-08] MEDS: ENOXAPARIN 40 MG/0.4 ML SYRINGE SQ SCH ×2 (09:10→20:34)
[2019-06-08] MEDS: LINAGLIPTIN 5 MG TABLET PO SCH (10:04)
[2019-06-08] MEDS: FLUoxetine HCL 20 MG CAP PO SCH ×2 (10:04→20:34)
[2019-06-08] MEDS: MAGNESIUM SULFATE-D5W PMX 1 GM in DEXTROSE/WATER 1 100ML.BAG IVPB SCH ×2 (11:29→12:38)
--- NOTE | 2019-06-08 11:54 | P.PN ---
Subjective patient is having nausea vomiting multiple episodes today. procedure impressive improved to 4.8. magnesium was low which will be supplemented. 06/07/2019 Patient is doing better today patient is being started on diet today. 06/08/2019 Patient had an episode of vomiting today didn't pass gas yet is belching Constitutional: Denied any fatigue denied any fever. Cardio vascular: denied any chest pain, palpitations Gastrointestinal as mentioned in the interval history Pulmonary: Denied any shortness of breath cough Neurologic denied any new focal deficits All inpatient medications were reviewed and appropriate changes in these medications as dictated in the interval history and assessment and plan. Objective - Vital Signs Vital signs: Vital Signs Temp 98.5 F 06/08/19 07:00 Pulse 70 06/08/19 11:44 Resp 16 06/08/19 07:00 BP 137/76 06/08/19 07:00 Pulse Ox 96 06/08/19 07:00 Intake & Output 06/07/19 06/08/19 06/08/19 18:59 06:59 18:59 Intake Total 1150 Output Total 650 300 Balance -650 1150 -300 Intake: Intake, IV Titration 1150 Amount 0.9% NaCl with KCl 20 Meq 1150 /l 1,000 ml @ 100 mls/hr IV .BY DURATION MARISA Rx#: [id number] Output: Urine 650 300 Other: Voiding Method Toilet # Voids 2 2 - Exam PHYSICAL EXAMINATION: GENERAL: The patient is drowsy sleep and able to assess his orientation, not in any acute distress. Obese HEENT: Pupils are round and equally reacting to light. EOMI. No scleral icterus. No conjunctival pallor. Normocephalic, atraumatic. No pharyngeal erythema. No thyromegaly. CARDIOVASCULAR: S1 and S2 present. No murmurs, rubs, or gallops. PULMONARY: Chest is clear to auscultation, no wheezing or crackles. ABDOMEN: Soft, nontender, nondistended, normoactive bowel sounds. No palpable organomegaly. MUSCULOSKELETAL: No joint swelling or deformity. EXTREMITIES: No cyanosis, clubbing, or pedal edema. NEUROLOGICAL: Unable to assess SKIN: No rashes. - Labs CBC & Chem 7: 06/06/19 08:03 06/08/19 06:19 Labs: Abnormal Lab Results - Last 24 Hours (Table) 06/08/19 Range/Units 06:19 Chloride 109 H (98-107) mmol/L BUN 6 L (7-17) mg/dL Glucose 137 H (74-99) mg/dL Magnesium 1.5 L (1.6-2.3) mg/dL Assessment and Plan Plan: -Hyperkalemia: Secondary to lisinopril,decrease the dose potassium improved, patient was a back on lisinopril . Patient is receiving IV fluids at this time, patient will be discharged on a reduced dose of the Seroquel 10 mg -Type 2 diabetes mellitus patient's blood sugars are fairly well controlled continue with present regimen patient can resume her home regimen upon discharge -Hypertension: continue with low-dose of lisinopril -Sleep apnea uses CPAP machine at home -obesity Patient is status post laparoscopic sleeve gastrectomy -Hypothyroidism -Hyperlipidemia- -depression
[2019-06-08] MEDS: LISINOPRIL 10 MG TAB PO SCH (14:17)
--- NOTE | 2019-06-08 14:32 | P.PN ---
Progress Note - Text Progress Note Date: 06/08/19 the patient had some complaints of nausea and emesis today. She denies any significant pain. On exam her vital signs are stable. Her abdomen soft. Incision sites are clean and intact. Patient was instructed to start thinking slower. We will add Decadron IV to her medications. She'll be observed and evaluated in the a.m.
[2019-06-08] MEDS: METOCLOPRAMIDE 5 MG/ML 2 ML VIAL IVP SCH ×2 (18:59→23:00)
[2019-06-08] MEDS: ATORVASTATIN 20 MG TAB PO SCH (20:34)
[2019-06-09] MEDS: METOCLOPRAMIDE 5 MG/ML 2 ML VIAL IVP SCH ×3 (05:22→17:48)
[2019-06-09] MEDS: LEVOTHYROXINE 125 MCG TAB PO SCH (05:22)
[2019-06-09] MEDS: LACTATED RINGERS 1,000 ML IV SCH (05:24)
[2019-06-09 07:36] LABS: African American GFR (CKD) >90 (>60 ml/min/1.73 sqM); Anion Gap 7 mmol/L; Blood Urea Nitrogen 7 mg/dL (7-17); Calcium 8.4 mg/dL (8.4-10.2); Carbon Dioxide 23 mmol/L (22-30); Chloride 109 mmol/L (98-107); Glucose 107 mg/dL (74-99); Magnesium 1.5 mg/dL (1.6-2.3); Non-African American GFR(CKD) 89 (>60 ml/min/1.73 sqM); Sodium 139 mmol/L (137-145)
[2019-06-09] MEDS: PANTOPRAZOLE 40 MG/10 ML VIAL IV SCH (07:56)
[2019-06-09] MEDS: ENOXAPARIN 40 MG/0.4 ML SYRINGE SQ SCH ×2 (07:56→22:01)
[2019-06-09] MEDS: FLUoxetine HCL 20 MG CAP PO SCH ×2 (07:56→22:02)
[2019-06-09] MEDS: ONDANSETRON 4 MG/2 ML VIAL IVP PRN (07:56)
[2019-06-09] MEDS: LINAGLIPTIN 5 MG TABLET PO SCH (07:56)
[2019-06-09] MEDS: 1: MVI, ADULT NO.4 WITH VIT K 10 ML, THIAMINE 100 MG, FOLIC ACID 1 MG, POTASSIUM CHLORID IV SCH ×12 (07:57→17:48)
[2019-06-09] MEDS ORDERED: Magnesium Replacement Protocol 1 EACH MISC MISCELLANE PRN (08:07)
[2019-06-09] MEDS: ALBUTEROL NEBULIZED 2.5 MG/3 ML INHALATION SCH ×5 (08:18→20:54)
[2019-06-09] MEDS: MAGNESIUM SULFATE-D5W PMX 1 GM in DEXTROSE/WATER 1 100ML.BAG IVPB SCH ×2 (08:25→12:23)
--- NOTE | 2019-06-09 12:42 | P.PN ---
Subjective Progress Note Date: 06/09/19 Principal diagnosis: patient is having nausea vomiting multiple episodes today. procedure impressive improved to 4.8. magnesium was low which will be supplemented. 06/07/2019 Patient is doing better today patient is being started on diet today. 06/08/2019 Patient had an episode of vomiting today didn't pass gas yet is belching Constitutional: Denied any fatigue denied any fever. Cardio vascular: denied any chest pain, palpitations Gastrointestinal as mentioned in the interval history Pulmonary: Denied any shortness of breath cough Neurologic denied any new focal deficits All inpatient medications were reviewed and appropriate changes in these medications as dictated in the interval history and assessment and plan. 06/09/2019 Patient is sitting up at the side of the bed and awaiting to have an upper GI endoscopy done today as she continues to have vomiting and nausea. Blood pressure is slightly elevated as nursing staff states the patient has been having multiple episodes of vomiting and unable to hold down medications. Will monitor vital signs closely. Magnesium is 1.5 and being replaced. Potassium today is 5.0. Objective - Vital Signs Vital signs: Vital Signs Temp 98 F 06/09/19 07:00 Pulse 79 06/09/19 07:30 Resp 16 06/09/19 07:30 BP 178/96 06/09/19 07:00 Pulse Ox 99 06/09/19 07:00 Intake & Output 06/08/19 06/09/19 06/09/19 18:59 06:59 18:59 Intake Total 1000 1821.2 Output Total 400 200 Balance 600 1821.2 -200 Intake: IV 800 Mvi, Adult No.4 with Vit 800 K 10 ml Thiamine 100 mg Folic Acid 1 mg Potassium Chloride 20 meq In Sodium Chloride 0.9% 1, 000 ml @ 100 mls/hr IV . BY DURATION [facility] Rx#: [id number] Intake, IV Titration 200 1821.2 Amount 0.9% NaCl with KCl 20 Meq 800 /l 1,000 ml @ 100 mls/hr IV .BY DURATION [facility] Rx#: [id number] Magnesium Sulfate-D5w Pmx 200 1 gm In Dextrose/Water 1 100ml.bag @ 100 mls/hr IVPB Q1H [facility] Rx#: [id number] Mvi, Adult No.4 with Vit 1021.2 K 10 ml Thiamine 100 mg Folic Acid 1 mg Potassium Chloride 20 meq In Sodium Chloride 0.9% 1, 000 ml @ 100 mls/hr IV . BY DURATION [facility] Rx#: [id number] Output: Urine 400 200 Other: Voiding Method Toilet Toilet Toilet # Voids 2 0 - Exam GENERAL: The patient is awake, alert and oriented 3, not in any acute distress. Obese HEENT: Pupils are round and equally reacting to light. EOMI. No scleral icterus. No conjunctival pallor. Normocephalic, atraumatic. No pharyngeal erythema. No thyromegaly. CARDIOVASCULAR: S1 and S2 present. No murmurs, rubs, or gallops. PULMONARY: Chest is clear to auscultation, no wheezing or crackles. ABDOMEN: Soft, nontender, nondistended, normoactive bowel sounds. No palpable organomegaly. MUSCULOSKELETAL: No joint swelling or deformity. EXTREMITIES: No cyanosis, clubbing, or pedal edema. NEUROLOGICAL: No focal deficits, able to move all 4 extremities SKIN: No rashes. - Labs CBC & Chem 7: 06/06/19 08:03 06/09/19 06:34 Labs: Abnormal Lab Results - Last 24 Hours (Table) 06/09/19 Range/Units 06:34 Chloride 109 H (98-107) mmol/L Glucose 107 H (74-99) mg/dL Magnesium 1.5 L (1.6-2.3) mg/dL Assessment and Plan Assessment: -Hyperkalemia: Secondary to lisinopril,decrease the dose, potassium improved, patient was a back on lisinopril . Patient is receiving IV fluids at this time, patient will be discharged on a reduced dose of the lisinopril 10 mg. potassium is 5.0 today, magnesium is 1.5 and being replaced -Type 2 diabetes mellitus patient's blood sugars are fairly well controlled continue with present regimen patient can resume her home regimen upon discharge -Hypertension: continue with low-dose of lisinopril. Will continue to monitor. Patient has been vomiting and unable to hold down medications. -Sleep apnea uses CPAP machine at home -obesity -Patient is status post laparoscopic sleeve gastrectomy -Hypothyroidism -Hyperlipidemia -depression
--- NOTE | 2019-06-09 14:36 | FL ---
EXAMINATION TYPE: Single contrast FL UGI w esophagus DATE OF EXAM: 06/09/2019 COMPARISON: 06/06/2019 HISTORY: 68-year-old female postop gastric sleeve on 06/05/2019 TECHNIQUE: A single contrast esophagram and UGI study is performed. The patient ingested approximate ly 25 mL [id number]. Total fluoroscopy time: 2.56 minutes. Total Limited: 31 FINDINGS: Patient was instructed to take small swallows. Tertiary peristaltic waves are noted within the thorac ic esophagus with a radiolucent air-fluid level at the level of the upper third thoracic esophagus. T here is progressive pooling of ingested oral contrast within the distal esophagus and proximal most p ortion of the stomach. Trace intermittent passage of contrast is noted along the gastric sleeve. The majority of the contrast remains in the 5 minute delayed image psoas of fluid column extending beyond the [id number] of the mid thoracic esophagus. No extravasation of contrast to suggest leak. No po stoperative free air seen. IMPRESSION: Relatively severe postoperative obstruction has developed at the level of the proximal stomach. There is a retained fluid column at least to the upper third thoracic esophagus. Only trace intermittent p assage is seen across the sleeve.
[2019-06-09] MEDS: LISINOPRIL 10 MG TAB PO SCH (15:45)
[2019-06-09] MEDS: DEXAMETHASONE SOD PHOSPHATE 4 MG/ML 1 ML VIAL IV PRN ×2 (17:47→22:01)
[2019-06-09] MEDS: ATORVASTATIN 20 MG TAB PO SCH (22:02)
[2019-06-10] MEDS: METOCLOPRAMIDE 5 MG/ML 2 ML VIAL IVP SCH ×4 (00:35→17:08)
[2019-06-10] MEDS: LACTATED RINGERS 1,000 ML IV SCH (05:52)
[2019-06-10] MEDS: LEVOTHYROXINE 125 MCG TAB PO SCH (05:52)
[2019-06-10] MEDS: 1: MVI, ADULT NO.4 WITH VIT K 10 ML, THIAMINE 100 MG, FOLIC ACID 1 MG, POTASSIUM CHLORID IV SCH ×6 (06:14)
--- NOTE | 2019-06-10 08:11 | P.PN ---
Progress Note - Text Progress Note Date: 06/09/19 the patient still has complaints of nausea and emesis. On exam her vital signs are stable. Her abdomen soft. Patient's esophagram was repeated. There is evidence of significant delay obstruction in the proximal gastric sleeve. This is changed compared to her initial postop esophagram. The patient remain on Decadron. She'll remain nothing by mouth. We'll repeat her esophagram in 24-48 hours.this is most likely postoperative edema.
[2019-06-10] MEDS: ALBUTEROL NEBULIZED 2.5 MG/3 ML INHALATION SCH ×4 (08:17→22:03)
[2019-06-10] MEDS: DEXAMETHASONE SOD PHOSPHATE 4 MG/ML 1 ML VIAL IV SCH ×4 (08:45→22:14)
[2019-06-10] MEDS: PANTOPRAZOLE 40 MG/10 ML VIAL IV SCH (08:45)
[2019-06-10] MEDS: ENOXAPARIN 40 MG/0.4 ML SYRINGE SQ SCH ×2 (08:46→21:32)
[2019-06-10] MEDS: FLUoxetine HCL 20 MG CAP PO SCH (10:27)
[2019-06-10] MEDS: LINAGLIPTIN 5 MG TABLET PO SCH (10:27)
[2019-06-10] MEDS ORDERED: MAGNESIUM SULFATE-D5W PMX 1 GM in DEXTROSE/WATER 1 100ML.BAG IVPB SCH (11:00)
--- NOTE | 2019-06-10 11:00 | P.PN ---
Subjective Progress Note Date: 06/10/19 CHIEF COMPLAINT: Morbid obesity HISTORY OF PRESENT ILLNESS: Patient examined this with the bedside with Dr. Carpio. She reports her pain is tolerable. Patient had esophagram repeated which revealed significant obstruction of the gastric sleeve. She has been voiding without difficulty. She has been ambulating in the hallway. Vital signs stable. PHYSICAL EXAM: VITAL SIGNS: Reviewed. GENERAL: Well-developed in no acute distress. HEENT: No sclera icterus. Extraocular movements grossly intact. Moist buccal mucosa. Head is atraumatic, normocephalic. ABDOMEN: Soft. Nondistended. Appropriate surgical tenderness. NEUROLOGIC: Alert and oriented. Cranial nerves II through XII grossly intact. ASSESSMENT: 1. Morbid obesity, status post laparoscopic sleeve gastrectomy PLAN: -Continue Decadron 4 mg IV every 4 hours -Pain control -Nothing by mouth except ice chips and popsicles -Repeat esophagram tomorrow morning Nurse practitioner note has been reviewed by physician. Signing provider agrees with the documented findings, assessment, and plan of care. Objective - Vital Signs Vital signs: Vital Signs Temp 98.1 F 06/10/19 07:00 Pulse 92 06/10/19 08:35 Resp 18 06/10/19 08:00 BP 147/86 06/10/19 07:00 Pulse Ox 92 L 06/10/19 08:19 Intake & Output 06/09/19 06/10/19 06/10/19 18:59 06:59 18:59 Intake Total 1021.2 800 Output Total 400 800 Balance 621.2 0 Intake: Intake, IV Titration 1021.2 800 Amount 0.9% NaCl with KCl 20 Meq 800 /l 1,000 ml @ 100 mls/hr IV .BY DURATION [facility] Rx#: [id number] Mvi, Adult No.4 with Vit 1021.2 K 10 ml Thiamine 100 mg Folic Acid 1 mg Potassium Chloride 20 meq In Sodium Chloride 0.9% 1, 000 ml @ 100 mls/hr IV . BY DURATION [facility] Rx#: [id number] Output: Urine 400 800 Other: Voiding Method Toilet Toilet Toilet # Voids 0 - Labs CBC & Chem 7: 06/06/19 08:03 06/09/19 06:34 Labs: Abnormal Lab Results - Last 24 Hours (Table) 06/10/19 Range/Units 07:22 Magnesium 1.5 L (1.6-2.3) mg/dL
--- NOTE | 2019-06-10 11:40 | P.PN ---
Subjective patient is having nausea vomiting multiple episodes today. procedure impressive improved to 4.8. magnesium was low which will be supplemented. 06/07/2019 Patient is doing better today patient is being started on diet today. 06/08/2019 Patient had an episode of vomiting today didn't pass gas yet is belching 06/10/2019 Patient did move her bowel clinically doing well was started on clear liquid diet plan is to advance it and the patient probably will be discharged tomorrow patient agrees Jeannine is low will be replaced today we'll repeat magnesium tomorrow Constitutional: Denied any fatigue denied any fever. Cardio vascular: denied any chest pain, palpitations Gastrointestinal as mentioned in the interval history Pulmonary: Denied any shortness of breath cough Neurologic denied any new focal deficits All inpatient medications were reviewed and appropriate changes in these medications as dictated in the interval history and assessment and plan. Objective - Vital Signs Vital signs: Vital Signs Temp 98.1 F 06/10/19 07:00 Pulse 92 06/10/19 08:35 Resp 18 06/10/19 08:00 BP 147/86 06/10/19 07:00 Pulse Ox 92 L 06/10/19 08:19 Intake & Output 06/09/19 06/10/19 06/10/19 18:59 06:59 18:59 Intake Total 1021.2 800 Output Total 400 800 Balance 621.2 0 Intake: Intake, IV Titration 1021.2 800 Amount 0.9% NaCl with KCl 20 Meq 800 /l 1,000 ml @ 100 mls/hr IV .BY DURATION [facility] Rx#: [id number] Mvi, Adult No.4 with Vit 1021.2 K 10 ml Thiamine 100 mg Folic Acid 1 mg Potassium Chloride 20 meq In Sodium Chloride 0.9% 1, 000 ml @ 100 mls/hr IV . BY DURATION [facility] Rx#: [id number] Output: Urine 400 800 Other: Voiding Method Toilet Toilet Toilet # Voids 0 - Exam PHYSICAL EXAMINATION: GENERAL: The patient is drowsy sleep and able to assess his orientation, not in any acute distress. Obese HEENT: Pupils are round and equally reacting to light. EOMI. No scleral icterus. No conjunctival pallor. Normocephalic, atraumatic. No pharyngeal erythema. No thyromegaly. CARDIOVASCULAR: S1 and S2 present. No murmurs, rubs, or gallops. PULMONARY: Chest is clear to auscultation, no wheezing or crackles. ABDOMEN: Soft, nontender, nondistended, normoactive bowel sounds. No palpable organomegaly. MUSCULOSKELETAL: No joint swelling or deformity. EXTREMITIES: No cyanosis, clubbing, or pedal edema. NEUROLOGICAL: Unable to assess SKIN: No rashes. - Labs CBC & Chem 7: 06/06/19 08:03 06/09/19 06:34 Labs: Abnormal Lab Results - Last 24 Hours (Table) 06/10/19 Range/Units 07:22 Magnesium 1.5 L (1.6-2.3) mg/dL Assessment and Plan Plan: -Hyperkalemia: Secondary to lisinopril,decrease the dose potassium improved, patient was a back on lisinopril . Patient is receiving IV fluids at this time, patient will be discharged on a reduced dose of the Seroquel 10 mg -Type 2 diabetes mellitus patient's blood sugars are fairly well controlled continue with present regimen patient can resume her home regimen upon discharge -Hypertension: continue with low-dose of lisinopril -Sleep apnea uses CPAP machine at home -obesity Patient is status post laparoscopic sleeve gastrectomy -Hypothyroidism -Hyperlipidemia- -depression
[2019-06-10] MEDS: MAGNESIUM SULFATE-D5W PMX 1 GM in DEXTROSE/WATER 1 100ML.BAG IVPB SCH ×3 (12:57→14:34)
[2019-06-10] MEDS: LISINOPRIL 10 MG TAB PO SCH (12:58)
[2019-06-11] MEDS: 1: MVI, ADULT NO.4 WITH VIT K 10 ML, THIAMINE 100 MG, FOLIC ACID 1 MG, POTASSIUM CHLORID IV SCH ×30 (00:54→22:02)
[2019-06-11] MEDS: ATORVASTATIN 20 MG TAB PO SCH ×3 (01:25→20:25)
[2019-06-11] MEDS: FLUoxetine HCL 20 MG CAP PO SCH ×4 (01:25→20:25)
[2019-06-11] MEDS: METOCLOPRAMIDE 5 MG/ML 2 ML VIAL IVP SCH ×5 (01:29→23:58)
[2019-06-11] MEDS: DEXAMETHASONE SOD PHOSPHATE 4 MG/ML 1 ML VIAL IV SCH ×7 (01:30→23:58)
[2019-06-11] MEDS: LEVOTHYROXINE 125 MCG TAB PO SCH (06:07)
[2019-06-11] MEDS: LACTATED RINGERS 1,000 ML IV SCH (07:07)
[2019-06-11] MEDS: LINAGLIPTIN 5 MG TABLET PO SCH (07:22)
[2019-06-11] MEDS: ENOXAPARIN 40 MG/0.4 ML SYRINGE SQ SCH ×2 (07:22→20:25)
[2019-06-11] MEDS: PANTOPRAZOLE 40 MG/10 ML VIAL IV SCH (07:22)
[2019-06-11] MEDS: ALBUTEROL NEBULIZED 2.5 MG/3 ML INHALATION SCH ×4 (08:05→21:13)
--- NOTE | 2019-06-11 10:07 | P.PN ---
Subjective Progress Note Date: 06/11/19 CHIEF COMPLAINT: Morbid obesity HISTORY OF PRESENT ILLNESS: Patient examined this with the bedside with Dr. Carpio. Denies abdominal pain she has been tolerating ice chips, popsicles, and sips of water. Patient has been ambulating in the hallway. Passing flatus. Vital signs stable. Afebrile. PHYSICAL EXAM: VITAL SIGNS: Reviewed. GENERAL: Well-developed in no acute distress. HEENT: No sclera icterus. Extraocular movements grossly intact. Moist buccal mucosa. Head is atraumatic, normocephalic. ABDOMEN: Soft. Nondistended. Appropriate surgical tenderness. NEUROLOGIC: Alert and oriented. Cranial nerves II through XII grossly intact. ASSESSMENT: 1. Morbid obesity, status post laparoscopic sleeve gastrectomy PLAN: -Continue Decadron 4 mg IV every 4 hours -Pain control -Nothing by mouth except ice chips and popsicles and sips of water -Repeat esophagram tomorrow morning -Anticipate discharge tomorrow pending esophagram results and ability to tolerate clear liquids Nurse practitioner note has been reviewed by physician. Signing provider agrees with the documented findings, assessment, and plan of care. Objective - Vital Signs Vital signs: Vital Signs Temp 97.7 F 06/11/19 07:00 Pulse 72 06/11/19 08:07 Resp 15 06/11/19 07:00 BP 158/73 06/11/19 07:00 Pulse Ox 96 06/11/19 07:00 Intake & Output 06/10/19 06/11/19 06/11/19 18:59 06:59 18:59 Intake Total 900 650 Output Total 800 Balance 900 -150 Intake: Intake, IV Titration 900 650 Amount 0.9% NaCl with KCl 20 Meq 700 300 /l 1,000 ml @ 100 mls/hr IV .BY DURATION [facility] Rx#: [id number] Magnesium Sulfate-D5w Pmx 100 1 gm In Dextrose/Water 1 100ml.bag @ 100 mls/hr IVPB Q1H [facility] Rx#: [id number] Magnesium Sulfate-D5w Pmx 100 350 1 gm In Dextrose/Water 1 100ml.bag @ 100 mls/hr IVPB Q1H [facility] Rx#: [id number] Output: Urine 800 Other: Voiding Method Toilet Toilet # Voids 0 - Labs CBC & Chem 7: 06/06/19 08:03 06/09/19 06:34
[2019-06-11] MEDS: LISINOPRIL 10 MG TAB PO SCH (12:02)
--- NOTE | 2019-06-11 15:35 | P.PN ---
Subjective patient is having nausea vomiting multiple episodes today. procedure impressive improved to 4.8. magnesium was low which will be supplemented. 06/07/2019 Patient is doing better today patient is being started on diet today. 06/08/2019 Patient had an episode of vomiting today didn't pass gas yet is belching 06/10/2019 Patient did move her bowel clinically doing well was started on clear liquid diet plan is to advance it and the patient probably will be discharged tomorrow patient agrees Jeannine is low will be replaced today we'll repeat magnesium tomorrow 06/11/2019 patient is tolerating diet well and patient will be discharged tomorrow after a barium esophagogram Constitutional: Denied any fatigue denied any fever. Cardio vascular: denied any chest pain, palpitations Gastrointestinal as mentioned in the interval history Pulmonary: Denied any shortness of breath cough Neurologic denied any new focal deficits All inpatient medications were reviewed and appropriate changes in these medications as dictated in the interval history and assessment and plan. Objective - Vital Signs Vital signs: Vital Signs Temp 98.1 F 06/11/19 14:49 Pulse 89 06/11/19 14:49 Resp 17 06/11/19 14:49 BP 127/74 06/11/19 14:49 Pulse Ox 98 06/11/19 14:49 Intake & Output 06/10/19 06/11/19 06/11/19 18:59 06:59 18:59 Intake Total 973 747 3192 Output Total 800 Balance 900 -150 1400 Intake: Intake, IV Titration 823 569 1897 Amount 0.9% NaCl with KCl 20 Meq 635 656 4403 /l 1,000 ml @ 100 mls/hr IV .BY DURATION [facility] Rx#: [id number] Magnesium Sulfate-D5w Pmx 100 1 gm In Dextrose/Water 1 100ml.bag @ 100 mls/hr IVPB Q1H [facility] Rx#: [id number] Magnesium Sulfate-D5w Pmx 100 350 1 gm In Dextrose/Water 1 100ml.bag @ 100 mls/hr IVPB Q1H [facility] Rx#: [id number] Mvi, Adult No.4 with Vit 200 K 10 ml Thiamine 100 mg Folic Acid 1 mg Potassium Chloride 20 meq In Sodium Chloride 0.9% 1, 000 ml @ 100 mls/hr IV . BY DURATION [facility] Rx#: [id number] Oral 200 Output: Urine 800 Other: Voiding Method Toilet Toilet # Voids 0 - Exam PHYSICAL EXAMINATION: GENERAL: The patient is drowsy sleep and able to assess his orientation, not in any acute distress. Obese HEENT: Pupils are round and equally reacting to light. EOMI. No scleral icterus. No conjunctival pallor. Normocephalic, atraumatic. No pharyngeal erythema. No thyromegaly. CARDIOVASCULAR: S1 and S2 present. No murmurs, rubs, or gallops. PULMONARY: Chest is clear to auscultation, no wheezing or crackles. ABDOMEN: Soft, nontender, nondistended, normoactive bowel sounds. No palpable organomegaly. MUSCULOSKELETAL: No joint swelling or deformity. EXTREMITIES: No cyanosis, clubbing, or pedal edema. NEUROLOGICAL: Unable to assess SKIN: No rashes. - Labs CBC & Chem 7: 06/06/19 08:03 06/09/19 06:34 Assessment and Plan Plan: -Hyperkalemia: Secondary to lisinopril,decrease the dose potassium improved, patient was a back on lisinopril . Patient is receiving IV fluids at this time, patient will be discharged on a reduced dose of the Seroquel 10 mg -Type 2 diabetes mellitus patient's blood sugars are fairly well controlled continue with present regimen patient can resume her home regimen upon discharge -Hypertension: continue with low-dose of lisinopril -Sleep apnea uses CPAP machine at home -obesity Patient is status post laparoscopic sleeve gastrectomy -Hypothyroidism -Hyperlipidemia- -depression
[2019-06-12] MEDS: DEXAMETHASONE SOD PHOSPHATE 4 MG/ML 1 ML VIAL IV SCH ×3 (04:28→13:36)
[2019-06-12] MEDS: LACTATED RINGERS 1,000 ML IV SCH (04:53)
[2019-06-12] MEDS: METOCLOPRAMIDE 5 MG/ML 2 ML VIAL IVP SCH ×2 (05:39→13:36)
[2019-06-12] MEDS: LEVOTHYROXINE 125 MCG TAB PO SCH (05:39)
[2019-06-12] MEDS: ALBUTEROL NEBULIZED 2.5 MG/3 ML INHALATION SCH ×3 (07:44→15:34)
[2019-06-12] MEDS: FLUoxetine HCL 20 MG CAP PO SCH (09:00)
[2019-06-12] MEDS: ENOXAPARIN 40 MG/0.4 ML SYRINGE SQ SCH (09:00)
[2019-06-12] MEDS: LINAGLIPTIN 5 MG TABLET PO SCH (09:00)
[2019-06-12] MEDS: PANTOPRAZOLE 40 MG/10 ML VIAL IV SCH (09:01)
[2019-06-12 09:16] VITALS: BP 158/89; RESP 12; TEMP 97.5
--- NOTE | 2019-06-12 09:24 | FL ---
EXAMINATION TYPE: FL UGI w esophagus DATE OF EXAM: 06/12/2019 COMPARISON: Previous exam 06/09/2019 HISTORY: Status post gastric sleeve TECHNIQUE: A single contrast UGI study is performed in a limited fashion at the level of the surgica l bed. FINDINGS: Postop changes are noted to the stomach. There is some hesitation across the level of the g astric sleeve of the contrast column. Contrast does flow into the proximal small bowel. IMPRESSION: Postop changes with some hesitation of the contrast column across the surgical bed
--- NOTE | 2019-06-12 09:38 | P.DS ---
Providers Date of admission: 06/05/19 08:32 Expected date of discharge: 06/12/19 Attending physician: Hung Carpio Consults: 06/05/19 11:03 Consult Physician Routine Consulting Provider: Elena López Consult Reason/Comments: medical management Do you want consulting provider notified?: Yes Primary care physician: Stated None Hospital Course: 68-year-old female who underwent laparoscopic sleeve gastrectomy with Dr. Carpio. Patient's initial postoperative esophagram was negative for obstruction. However the patient had a repeat esophagram performed which rev ealed significant obstruction of the gastric sleeve likely due to postoperative edema.. She was placed on IV Decadron and made nothing by mouth. Patient was re-evaluated and able to tolerate liquids. Another esophagram was performed revealing some hesitation across the level of the gastric sleeve. Contrast does flow into the proximal small bowel. She was deemed stable for discharge home today per Dr Carpio. She is to remain on clear liquid diet for [address] Carpio. She is to follow up outpatient. Please see EMR further hospital course details. DC DX: 1. Morbid obesity, status post laparoscopic sleeve gastrectomy Nurse practitioner note has been reviewed by physician. Signing provider agrees with the documented findings, assessment, and plan of care. Plan - Discharge Summary Discharge Rx Participant: No New Discharge Prescriptions: New Lisinopril [Zestril] 10 mg PO 1300 tab Sucralfate [Carafate] 1 gm PO BID #500 ml Bisacodyl [Dulcolax] 5 mg PO DAILY PRN #10 tablet. PRN Reason: Constipation Simethicone 40 mg/0.6 ml Drops [Mylicon Drops] 40 mg PO PCHS PRN #30 ml PRN Reason: gas Omeprazole 40 mg PO DAILY #30 cap Ondansetron Odt [Zofran Odt] 4 mg PO Q8HR PRN #9 tab PRN Reason: Nausea Hydrocodone/Acetaminophen [Lincoln 5-325] 1 tab PO Q6HR PRN 3 Days #12 tab PRN Reason: Pain Continue metFORMIN HCL 1,000 mg PO BID FLUoxetine HCL [PROzac] 40 mg PO DAILY FLUoxetine HCL 20 mg PO HS glipiZIDE [Glucotrol] 10 mg PO AC-BRKFST Levothyroxine Sodium [Synthroid] 125 mcg PO DAILY Atorvastatin [Lipitor] 20 mg PO HS sitaGLIPtin [Januvia] 100 mg PO DAILY Nystatin 1 applic TOPICAL DIRECTED PRN PRN Reason: YEAST INFECTION AREA Discontinued Lisinopril [Prinivil] 20 mg PO 1300 Discharge Medication List Atorvastatin [Lipitor] 20 mg PO HS 01/20/19 [History] FLUoxetine HCL 20 mg PO HS 01/20/19 [History] FLUoxetine HCL [PROzac] 40 mg PO DAILY 01/20/19 [History] Levothyroxine Sodium [Synthroid] 125 mcg PO DAILY 01/20/19 [History] glipiZIDE [Glucotrol] 10 mg PO AC-BRKFST 01/20/19 [History] metFORMIN HCL 1,000 mg PO BID 01/20/19 [History] sitaGLIPtin [Januvia] 100 mg PO DAILY 01/20/19 [History] Nystatin 1 applic TOPICAL DIRECTED PRN 03/10/19 [History] Lisinopril [Zestril] 10 mg PO 1300 tab 06/08/19 [Rx] Bisacodyl [Dulcolax] 5 mg PO DAILY PRN #10 tablet. 06/12/19 [Rx] Hydrocodone/Acetaminophen [Lincoln 5-325] 1 tab PO Q6HR PRN 3 Days #12 tab 06/12/19 [Rx] Omeprazole 40 mg PO DAILY #30 cap 06/12/19 [Rx] Ondansetron Odt [Zofran Odt] 4 mg PO Q8HR PRN #9 tab 06/12/19 [Rx] Simethicone 40 mg/0.6 ml Drops [Mylicon Drops] 40 mg PO PCHS PRN #30 ml 06/12/19 [Rx] Sucralfate [Carafate] 1 gm PO BID #500 ml 06/12/19 [Rx] [facility](s[facility]Ref[facility] [place] [facility] 1 Week Activity/Diet/Wound Care/Special Instructions: No driving while taking Lincoln No lifting over 10 pounds You may shower. No soaking or tub baths Very light activity until you are reevaluated at your follow up appointment with your surgeon Continue clear liquid diet for [address] Carpio
[2019-06-12 11:48] VITALS: PULSE 82
[2019-06-12] MEDS: LISINOPRIL 10 MG TAB PO SCH (13:36)
== END 2019-06-12 16:15 | disposition home or self-care (01) | DRG 620 ==
LOC: 2ORMAIN 08:32 → 4SSUR 14:16
PROVIDERS: ADMIT Surgery; ATTEND Surgery
PROC: 0DB64Z3 Excision of Stomach, Percutaneous Endoscopic Approach, Vertical (ICD-10-PCS; principal; 2019-06-05 11:00)
DX: E66.01 Morbid (severe) obesity due to excess calories (principal); K95.89 Other complications of other bariatric procedure; K31.89 Other diseases of stomach and duodenum; Z68.41 Body mass index [BMI] 40.0-44.9, adult; E11.9 Type 2 diabetes mellitus without complications; E87.5 Hyperkalemia; I10 Essential (primary) hypertension; E78.5 Hyperlipidemia, unspecified; G47.30 Sleep apnea, unspecified; R11.2 Nausea with vomiting, unspecified; E03.9 Hypothyroidism, unspecified; F32.9 Major depressive disorder, single episode, unspecified; T46.4X5A Adverse effect of angiotensin-converting-enzyme inhibitors, initial encounter; M32.9 Systemic lupus erythematosus, unspecified; Y84.8 Other medical procedures as the cause of abnormal reaction of the patient, or of later complication, without mention of misadventure at the time of the procedure; Z79.890 Hormone replacement therapy; Z79.84 Long term (current) use of oral hypoglycemic drugs; Z79.899 Other long term (current) drug therapy; Z98.42 Cataract extraction status, left eye; Z98.41 Cataract extraction status, right eye; Z87.2 Personal history of diseases of the skin and subcutaneous tissue; Z98.51 Tubal ligation status; Z87.891 Personal history of nicotine dependence; Z98.890 Other specified postprocedural states; Z80.9 Family history of malignant neoplasm, unspecified
CPT/HCPCS: 74240; 80048; 80051; 82310; 82565; 83735; 84100; 84132; 84520; 85025; 88307; 94640; 94760

== ENCOUNTER 2019-06-13 20:50 | Inpatient (IN) | payer MEDICARE, OTHER ==
[2019-06-13] MEDS ORDERED: ONDANSETRON 4 MG/2 ML VIAL IVP STA (21:15)
[2019-06-13] MEDS ORDERED: SODIUM CHLORIDE 0.9% 1,000 ML IV STA (21:15)
[2019-06-13 22:09] LABS: Basophils % (A) 0 %; Eosinophils # (A) 0.1 k/uL (0-0.7); Eosinophils % (A) 1 %; HCT 40.1 % (34.0-46.0); Lymphocytes # (A) 1.7 k/uL (1.0-4.8); Lymphocytes % (A) 21 %; MCH 29.5 pg (25.0-35.0); MCHC 32.5 g/dL (31.0-37.0); Monocytes # (A) 0.7 k/uL (0-1.0); Monocytes % (A) 8 %; Neutrophils # (A) 5.5 k/uL (1.3-7.7); Neutrophils % (A) 68 %; Platelet Count 216 k/uL (150-450); RBC 4.41 m/uL (3.80-5.40); RDW 12.8 % (11.5-15.5); WBC 8.1 k/uL (3.8-10.6)
[2019-06-13 22:21] LABS: ALT 57 U/L (4-34); African American GFR (CKD) >90 (>60 ml/min/1.73 sqM); Anion Gap 7 mmol/L; Blood Urea Nitrogen 17 mg/dL (7-17); Carbon Dioxide 21 mmol/L (22-30); Chloride 109 mmol/L (98-107); Glucose 142 mg/dL (74-99); Non-African American GFR(CKD) 81 (>60 ml/min/1.73 sqM); Sodium 137 mmol/L (137-145)
[2019-06-13 22:22] LABS: AST 93 U/L (14-36); Albumin 3.6 g/dL (3.5-5.0); Potassium 4.7 mmol/L (3.5-5.1); Total Protein 6.5 g/dL (6.3-8.2)
[2019-06-13 22:23] LABS: Alkaline Phosphatase 57 U/L (38-126)
[2019-06-14] MEDS ORDERED: IOPAMIDOL CONTRAST (ORAL USE) VIAL PO PRN (00:05)
--- NOTE | 2019-06-14 00:10 | ED ---
Nausea/Vomiting/Diarrhea HPI - General Chief complaint: Nausea/Vomiting/Diarrhea Stated complaint: VOMITING Time Seen by Provider: 06/13/19 21:14 Source: EMS Mode of arrival: EMS Limitations: no limitations - History of Present Illness Initial comments: Sandra is a 68-year-old female who presents to the ER today as a transfer from [facility]. Patient underwent gastric sleeve procedure on June 05, she developed postoperative nausea and vomiting which was profound. She was admitted for multiple days. She underwent multiple testing and was improving at which time she was discharged home. Patient reports she's been home for a day and a half has not been able to tolerate any oral intake including her home medications which prompted her to seek care back in the hospital. - Related Data Home Medications Medication Instructions Recorded Confirmed Atorvastatin [Lipitor] 20 mg PO HS 01/20/19 06/03/19 FLUoxetine HCL 20 mg PO HS 01/20/19 06/03/19 FLUoxetine HCL [PROzac] 40 mg PO DAILY 01/20/19 06/03/19 Levothyroxine Sodium [Synthroid] 125 mcg PO DAILY 01/20/19 06/03/19 glipiZIDE [Glucotrol] 10 mg PO AC-BRKFST 01/20/19 06/03/19 metFORMIN HCL 1,000 mg PO BID 01/20/19 06/03/19 sitaGLIPtin [Januvia] 100 mg PO DAILY 01/20/19 06/03/19 Nystatin 1 applic TOPICAL DIRECTED PRN 03/10/19 06/03/19 Previous Rx's Medication Instructions Recorded Lisinopril [Zestril] 10 mg PO 1300 tab 06/08/19 Bisacodyl [Dulcolax] 5 mg PO DAILY PRN #10 tablet. 06/12/19 Hydrocodone/Acetaminophen [[place] 1 tab PO Q6HR PRN 3 Days #12 tab 06/12/19 5-325] Omeprazole 40 mg PO DAILY #30 cap 06/12/19 Ondansetron Odt [Zofran Odt] 4 mg PO Q8HR PRN #9 tab 06/12/19 Simethicone 40 mg/0.6 ml Drops 40 mg PO PCHS PRN #30 ml 06/12/19 [Mylicon Drops] Sucralfate [Carafate] 1 gm PO BID #500 ml 06/12/19 Allergies Allergy/AdvReac Type Severity Reaction Status Date / Time No Known Allergies Allergy Verified 06/13/19 20:57 Review of Systems ROS Statement: Those systems with pertinent positive or pertinent negative responses have been documented in the HPI. ROS Other: All systems not noted in ROS Statement are negative. Past Medical History Past Medical History: Diabetes Mellitus, Hyperlipidemia, Hypertension, Skin Disorder, Sleep Apnea/CPAP/BIPAP, Thyroid Disorder Additional Past Medical History / Comment(s): lupus, gets rash on face that comes and goes, doesn't use CPAP History of Any Multi-Drug Resistant Organisms: None Reported Past Surgical History: Breast Surgery, Orthopedic Surgery, Tubal Ligation Additional Past Surgical History / Comment(s): breast reduction, ORIF rt ankle, cyst removed from left breast, dex cataracts, eye surgery for scar tissue dex eyes after cataract surgery. Colonoscopy. EGD, gastric sleeve, Past Anesthesia/Blood Transfusion Reactions: No Reported Reaction Past Psychological History: Depression Smoking Status: Never smoker Past Alcohol Use History: Rare Past Drug Use History: None Reported - Past Family History Mother Family Medical History: Cancer Father Family Medical History: Cancer General Exam - General Exam Comments Initial Comments: Physical Exam GENERAL: Patient is well-developed and well-nourished. Patient is nontoxic and well- hydrated and is in no distress. HENT: Normocephalic, Atraumatic. EYES: PERRL, EOMI PULMONARY: Unlabored respirations. No audible rales rhonchi or wheezing was noted. CARDIOVASCULAR: There is a regular rate and rhythm without any murmurs gallops or rubs. ABDOMEN: Soft and nontender with normal bowel sounds. Well-healing surgical incisions SKIN: Skin is clear with no lesions or rashes and otherwise unremarkable. : Deferred NEUROLOGIC: Patient is alert and oriented x3. Moving all extremities spontaneously MUSCULOSKELETAL: Normal extremities with adequate strength and full range of motion. No lower extremity swelling or edema. No calf tenderness. PSYCHIATRIC: Normal psychiatric evaluation. Limitations: no limitations Course Vital Signs 06/13/19 06/13/19 06/13/19 20:51 22:35 23:50 Temperature 98.8 F 97.7 F Pulse Rate 70 59 L 58 L Respiratory 18 18 18 Rate Blood Pressure 149/90 133/81 150/75 O2 Sat by Pulse 98 97 95 Oximetry 06/14/19 01:25 Temperature 98.6 F Pulse Rate 63 Respiratory 17 Rate Blood Pressure 148/97 O2 Sat by Pulse 100 Oximetry Medical Decision Making - Medical Decision Making She was seen and evaluated history was obtained from patient, repeat labs were obtained mildly elevated transaminases, no other significant abnormality is no signs of severe dehydration the patient received IV fluids prior to arrival CT imaging will be obtained as it has not been obtained postoperatively CT with retained contrast in the esophagus concerning for possible gastric obstruction, this is consistent with the patient's inflammatory changes found on upper GI prior to discharge. Due to patient's inability tolerate by mouth intake we'll plan to place patient in observation. Patient care was discussed with surgeon cushion maker hand Dr. Pelletier who agrees the plan for observation, IV fluid resuscitation and she will evaluate the patient the morning. - Lab Data Result diagrams: 06/13/19 21:03 06/13/19 21:03 Lab Results 06/13/19 06/13/19 Range/Units 21:03 21:03 WBC 8.1 (3.8-10.6) k/uL RBC 4.41 (3.80-5.40) m/uL Hgb 13.0 (11.4-16.0) gm/dL Hct 40.1 (34.0-46.0) % MCV 91.0 (80.0-100.0) fL MCH 29.5 (25.0-35.0) pg MCHC 32.5 (31.0-37.0) g/dL RDW 12.8 (11.5-15.5) % Plt Count 216 (150-450) k/uL Neutrophils % 68 % Lymphocytes % 21 % Monocytes % 8 % Eosinophils % 1 % Basophils % 0 % Neutrophils # 5.5 (1.3-7.7) k/uL Lymphocytes # 1.7 (1.0-4.8) k/uL Monocytes # 0.7 (0-1.0) k/uL Eosinophils # 0.1 (0-0.7) k/uL Basophils # 0.0 (0-0.2) k/uL Sodium 137 (137-145) mmol/L Potassium 4.7 (3.5-5.1) mmol/L Chloride 109 H (98-107) mmol/L Carbon Dioxide 21 L (22-30) mmol/L Anion Gap 7 mmol/L BUN 17 (7-17) mg/dL Creatinine 0.76 (0.52-1.04) mg/dL Est GFR (CKD-EPI)AfAm >90 (>60 ml/min/1.73 sqM) Est GFR (CKD-EPI)NonAf 81 (>60 ml/min/1.73 sqM) Glucose 142 H (74-99) mg/dL Calcium 9.0 (8.4-10.2) mg/dL Total Bilirubin 1.0 (0.2-1.3) mg/dL AST 93 H (14-36) U/L ALT 57 H (4-34) U/L Alkaline Phosphatase 57 (38-126) U/L Total Protein 6.5 (6.3-8.2) g/dL Albumin 3.6 (3.5-5.0) g/dL Lipase 257 (23-300) U/L Disposition Clinical Impression: Body mass index (BMI) 40.0-44.9, adult, Morbid obesity, Post-operative nausea and vomiting Disposition: ADMITTED IP TO THIS [facility] Condition: Stable Referrals: None,Stated [Primary Care Provider] - 1-2 days
--- NOTE | 2019-06-14 00:38 | CT ---
EXAMINATION TYPE: CT abdomen pelvis w con DATE OF EXAM: 06/14/2019 COMPARISON: None HISTORY: post op gastric sleeve x1week vomiting CT DLP: 2218.8 mGycm Automated exposure control for dose reduction was used. CONTRAST: Performed with IV Contrast, patient injected with 100 mL of Isovue 300. Exam performed from the diaphragm to the floor the pelvis with oral and IV contrast. Lung bases are clear of consolidation. There is no pleural effusion. Heart size is normal. There is gastric surgery. There are surgical clips. Spleen is intact. I see no contrast extravasation . There is retained oral contrast in the distal esophagus. Gallbladder appears normal. Liver appears normal. There is no evidence of pancreatic mass. There is no adrenal mass. Kidneys have normal size and contour. There is no hydronephrosis. There is satisfactory contrast opacification of the kidneys. There is 1.5 cm cortical cyst lower pole left kid balwinder. There is 3 mm calculus anterior right kidney. There is no retroperitoneal adenopathy. There are numerous diverticula in the sigmoid colon. There is no sign of diverticulitis. Bladder dist ends smoothly. There is no inguinal hernia. There is no free fluid in the pelvis. Uterus is anteverte d. There are spondylotic changes in the lumbar spine. There is no sign of thickened appendix. There i s no sign of a bowel obstruction. There is no mesenteric edema. IMPRESSION: Bariatric surgery. Nonobstructing right renal calculus. Sigmoid diverticulosis without diverticulitis. There is some retained contrast in the distal esophagus that suggests some degree of gastric obstruct ion.
[2019-06-14] MEDS ORDERED: SODIUM CHLORIDE 0.9% 1,000 ML IV ONE (01:56)
[2019-06-14] MEDS ORDERED: NALOXONE 0.4 MG/ML 1 ML VIAL IV PRN (01:57)
[2019-06-14] MEDS: SODIUM CHLORIDE 0.9% 1,000 ML IV SCH ×3 (02:47→20:22)
[2019-06-14 07:15] LABS: Glucose,Whole Blood 133 mg/dL (75-99)
[2019-06-14] MEDS: ONDANSETRON 4 MG/2 ML VIAL IVP PRN (11:07)
[2019-06-14 11:42] LABS: Glucose,Whole Blood 147 mg/dL (75-99)
--- NOTE | 2019-06-14 13:41 | P.GSHP ---
History of Present Illness H&P Date: 06/14/19 CHIEF COMPLAINT: Intractable nausea and vomiting HISTORY OF PRESENT ILLNESS: The patient is a 68 year old female status post sleeve gastrectomy 06/05/2019. She had prolonged hospitalization up to 08/13/2018. Prolonged hospitalization was due to nausea and vomiting. She reports being discharged the last 2 days. She went home and drink "chicken broth from the box. From that time, "nothing would stay down.". She came right back to the emergency room. She reports pre-existing troubles with swallowing prior to her sleeve gastrectomy. She reports her blood sugars prior to surgery was less than 200s. Her urine has been clear yellow. Her oral intake has been subpar. She has been admitted secondary to intractable nausea and vomiting with recent history of dysphagia including gastric outlet obstruction. PAST MEDICAL HISTORY: See list. PAST SURGICAL HISTORY: See list. MEDICATIONS: See list. ALLERGIES: See list. SOCIAL HISTORY: See list. FAMILY HISTORY: See list. REVIEW OF ORGAN SYSTEMS: CONSTITUTIONAL: No fevers or chills. EYES: Past history of cataract surgery. HEENT: No difficulties with hearing. No nosebleeds. Has difficulty swallowing. RESPIRATORY: Denies pneumonia. Denies any troubles with breathing or dyspnea on exertion. Has obstructive sleep apnea. CARDIOVASCULAR: Denies any chest pain, palpitations, or recent heart attacks. GASTROINTESTINAL: Denies fatty food intolerance. GENITOURINARY: Denies any blood in urine or increased urinary frequency. NEUROLOGICAL: Denies any numbness or tingling along the distal extremities. No seizure disorders or headaches. MUSCULOSKELETAL: Has back pain, stiffness or joint arthritis. SKIN: No current skin cancer. No rash. PSYCHIATRIC: Has current depression. No suicidal thoughts. ENDOCRINE: Has current thyroid disorders. Has blood sugar glucose intolerance. HEME/LYMPHATIC: Denies any lumps and bumps around the neck. No recent deep venous thrombosis. ALLERGY/IMMUNOLOGY: No immunoglobulin therapy. No immune deficiencies. BREAST: Denies current breast lumps, pain or nipple discharge. PHYSICAL EXAM: VITALS: Reviewed CONSTITUTIONAL: Well developed and in no acute distress. EYES: Conjuctivae without sclera icterus. Pupils are equally round and reactive to light. Extraocular movements grossly intact. HEAD, EARS, NOSE, THROAT: Moist buccal mucosa. Head is atraumatic, normocephalic. Hears conversational speech. No nasal drainage. Good dentition. NECK: Supple. No JV distention. No thyroidomegaly. RESPIRATORY: Non-labored respirations and equal bilateral excursions. No gross wheezes. CARDIOVASCULAR: Regular rate and rhythm. Extremities without moderate edema. Palpable 2+ radial pulses. ABDOMEN: Soft. Non-tender. Nondistended. LYMPH: No neck lymphadenopathy. No axillary lymphadenopathy. MUSCULOSKELETAL: Warm and well perfused with good skin turgor. NEUROLOGIC: Cranial nerves I through XII grossly intact. Sensation upper and extremities intact. No focal or lateralizing signs. PSYCH: Appropriate affect. Alert and oriented to person, place and time. Displays appropriate insight. CLINCAL LABS: Reviewed. WBC normal. IMAGING: Independently reviewed CT of the abdomen and pelvis demonstrate contrast within the esophagus sleeve including the small bowel. No evidence of leak or extravasation identified. This is my personal interpretation. RADIOLOGY: Report reviewed. Confirming diverticulosis and question of gastric outlet obstruction RECORDS: previous old records reviewed including previous esophagram independently reviewed by me demonstrating patent sleeve. Persistent hypo- magnesia upon recent hospitalization. ASSESSMENT: 1. Abnormal computed tomograph for gastric outlet obstruction 2. Intractable nausea and vomiting 3. Status post sleeve gastrectomy PLAN: 1. I have gone over her bariatric education for drinking sips not gulps of fluid which will exacerbate esophageal spasms. 2. Will start antiemetics including Decadron to address underlying edema of her sleeve. 3. Restart bariatric clears with close observation of dysphagia Past Medical History Past Medical History: Diabetes Mellitus, Hyperlipidemia, Hypertension, Skin Disorder, Sleep Apnea/CPAP/BIPAP, Thyroid Disorder Additional Past Medical History / Comment(s): lupus, gets rash on face that comes and goes, doesn't use CPAP History of Any Multi-Drug Resistant Organisms: None Reported Past Surgical History: Bariatric Surgery, Breast Surgery, Orthopedic Surgery, Tubal Ligation Additional Past Surgical History / Comment(s): breast reduction, ORIF rt ankle, cyst removed from left breast, dex cataracts, eye surgery for scar tissue dex eyes after cataract surgery. Colonoscopy. EGD, gastric sleeve, Past Anesthesia/Blood Transfusion Reactions: No Reported Reaction Past Psychological History: Depression Additional Psychological History / Comment(s): . Smoking Status: Never smoker Past Alcohol Use History: Rare Additional Past Alcohol Use History / Comment(s): quit smoking 2013, smoked for 5 yrs est, 1 PPD Past Drug Use History: None Reported - Past Family History Mother Family Medical History: Cancer Father Family Medical History: Cancer Medications and Allergies Home Medications Medication Instructions Recorded Confirmed Type Atorvastatin [Lipitor] 20 mg PO HS 01/20/19 06/14/19 History FLUoxetine HCL 20 mg PO HS 01/20/19 06/14/19 History FLUoxetine HCL [PROzac] 40 mg PO DAILY 01/20/19 06/14/19 History Levothyroxine Sodium [Synthroid] 125 mcg PO DAILY 01/20/19 06/14/19 History glipiZIDE [Glucotrol] 10 mg PO AC-BRKFST 01/20/19 06/14/19 History metFORMIN HCL 1,000 mg PO BID 01/20/19 06/14/19 History sitaGLIPtin [Januvia] 100 mg PO DAILY 01/20/19 06/14/19 History Bisacodyl [Dulcolax] 5 mg PO DAILY PRN #10 tablet. 06/12/19 06/14/19 Rx Hydrocodone/Acetaminophen [[place] 1 tab PO Q6HR PRN 3 Days #12 tab 06/12/19 06/14/19 Rx 5-325] Omeprazole 40 mg PO DAILY #30 cap 06/12/19 06/14/19 Rx Ondansetron Odt [Zofran Odt] 4 mg PO Q8HR PRN #9 tab 06/12/19 06/14/19 Rx Simethicone 40 mg/0.6 ml Drops 40 mg PO PCHS PRN #30 ml 06/12/19 06/14/19 Rx [Mylicon Drops] Sucralfate [Carafate] 1 gm PO BID #500 ml 06/12/19 06/14/19 Rx Lisinopril 20 mg PO DAILY 06/14/19 06/14/19 History Allergies Allergy/AdvReac Type Severity Reaction Status Date / Time No Known Allergies Allergy Verified 06/14/19 09:33 Surgical - Exam Vital Signs Temp Pulse Resp BP Pulse Ox 98.8 F 70 18 149/90 98 06/13/19 20:51 06/13/19 20:51 06/13/19 20:51 06/13/19 20:51 06/13/19 20:51 Results - Labs 06/13/19 21:03 06/13/19 21:03 Abnormal Lab Results - Last 24 Hours (Table) 06/13/19 06/14/19 06/14/19 Range/Units 21:03 07:13 11:38 Chloride 109 H (98-107) mmol/L Carbon Dioxide 21 L (22-30) mmol/L Glucose 142 H (74-99) mg/dL POC Glucose (mg/dL) 133 H 147 H (75-99) mg/dL AST 93 H (14-36) U/L ALT 57 H (4-34) U/L Diabetes panel 06/13/19 Range/Units 21:03 Sodium 137 (137-145) mmol/L Potassium 4.7 (3.5-5.1) mmol/L Chloride 109 H (98-107) mmol/L Carbon Dioxide 21 L (22-30) mmol/L BUN 17 (7-17) mg/dL Creatinine 0.76 (0.52-1.04) mg/dL Glucose 142 H (74-99) mg/dL Calcium 9.0 (8.4-10.2) mg/dL AST 93 H (14-36) U/L ALT 57 H (4-34) U/L Alkaline Phosphatase 57 (38-126) U/L Total Protein 6.5 (6.3-8.2) g/dL Albumin 3.6 (3.5-5.0) g/dL Calcium panel 06/13/19 Range/Units 21:03 Calcium 9.0 (8.4-10.2) mg/dL Albumin 3.6 (3.5-5.0) g/dL Pituitary panel 06/13/19 Range/Units 21:03 Sodium 137 (137-145) mmol/L Potassium 4.7 (3.5-5.1) mmol/L Chloride 109 H (98-107) mmol/L Carbon Dioxide 21 L (22-30) mmol/L BUN 17 (7-17) mg/dL Creatinine 0.76 (0.52-1.04) mg/dL Glucose 142 H (74-99) mg/dL Calcium 9.0 (8.4-10.2) mg/dL Adrenal panel 06/13/19 Range/Units 21:03 Sodium 137 (137-145) mmol/L Potassium 4.7 (3.5-5.1) mmol/L Chloride 109 H (98-107) mmol/L Carbon Dioxide 21 L (22-30) mmol/L BUN 17 (7-17) mg/dL Creatinine 0.76 (0.52-1.04) mg/dL Glucose 142 H (74-99) mg/dL Calcium 9.0 (8.4-10.2) mg/dL Total Bilirubin 1.0 (0.2-1.3) mg/dL AST 93 H (14-36) U/L ALT 57 H (4-34) U/L Alkaline Phosphatase 57 (38-126) U/L Total Protein 6.5 (6.3-8.2) g/dL Albumin 3.6 (3.5-5.0) g/dL Assessment and Plan (1) High risk for readmission Current Visit: Yes Status: Acute Code(s): Z91.89 - OTH PERSONAL RISK FACTORS, NOT ELSEWHERE CLASSIFIED SNOMED Code(s): 477847876 (2) S/P laparoscopic sleeve gastrectomy Current Visit: Yes Status: Acute Code(s): Z98.84 - BARIATRIC SURGERY STATUS SNOMED Code(s): 769756326 (3) Intractable nausea and vomiting Current Visit: Yes Status: Acute Code(s): R11.2 - NAUSEA WITH VOMITING, UNSPECIFIED SNOMED Code(s): 174672331 (4) Diabetes type 2, uncontrolled Current Visit: Yes Status: Acute Code(s): E11.65 - TYPE 2 DIABETES MELLITUS WITH HYPERGLYCEMIA SNOMED Code(s): 623468405 (5) Hypothyroidism Current Visit: Yes Status: Acute Code(s): E03.9 - HYPOTHYROIDISM, UNSPECIFIED SNOMED Code(s): 21338988 (6) Chronic depressive disorder Current Visit: Yes Status: Acute Code(s): F32.9 - MAJOR DEPRESSIVE DISORDER, SINGLE EPISODE, UNSPECIFIED SNOMED Code(s): 904036030 (7) Obstructive sleep apnea Current Visit: Yes Status: Acute Code(s): G47.33 - OBSTRUCTIVE SLEEP APNEA (ADULT) (PEDIATRIC) SNOMED Code(s): 83879736 (8) Body mass index (BMI) 40.0-44.9, adult Current Visit: Yes Status: Acute Code(s): Z68.41 - BODY MASS INDEX (BMI) 40.0-44.9, ADULT SNOMED Code(s): 070493523
[2019-06-14] MEDS: DEXAMETHASONE SOD PHOSPHATE 4 MG/ML 1 ML VIAL IV SCH ×2 (14:53→20:23)
[2019-06-14] MEDS: SCOPOLAMINE 1.5MG/72HR PATCH TRANSDERM SCH (14:54)
[2019-06-14 17:03] LABS: Glucose,Whole Blood 160 mg/dL (75-99)
[2019-06-14] MEDS: INSULIN ASPART (NovoLOG) 100 UNIT/ML VIAL SQ SCH ×2 (17:49→20:44)
[2019-06-14] MEDS: METOCLOPRAMIDE 5 MG/ML 2 ML VIAL IVP SCH (17:49)
[2019-06-14] MEDS: SIMETHICONE 40 MG/0.6 ML DROPS 2,000 MG/30 ML BOTTLE PO SCH ×2 (17:51→20:23)
[2019-06-14 20:25] LABS: Glucose,Whole Blood 193 mg/dL (75-99)
[2019-06-15] MEDS: METOCLOPRAMIDE 5 MG/ML 2 ML VIAL IVP SCH ×4 (00:04→17:51)
[2019-06-15] MEDS: DEXAMETHASONE SOD PHOSPHATE 4 MG/ML 1 ML VIAL IV SCH ×4 (03:01→20:23)
[2019-06-15] MEDS: LEVOTHYROXINE 125 MCG TAB PO SCH (05:15)
[2019-06-15] MEDS: SODIUM CHLORIDE 0.9% 1,000 ML IV SCH ×3 (05:17→21:42)
[2019-06-15 06:50] LABS: Glucose,Whole Blood 175 mg/dL (75-99)
[2019-06-15] MEDS: INSULIN ASPART (NovoLOG) 100 UNIT/ML VIAL SQ SCH ×4 (08:03→21:09)
[2019-06-15] MEDS: LISINOPRIL 20 MG TAB PO SCH (08:04)
[2019-06-15] MEDS: SIMETHICONE 40 MG/0.6 ML DROPS 2,000 MG/30 ML BOTTLE PO SCH ×4 (08:05→21:43)
[2019-06-15] MEDS: ONDANSETRON 4 MG/2 ML VIAL IVP PRN (08:11)
[2019-06-15 11:43] LABS: Glucose,Whole Blood 176 mg/dL (75-99)
--- NOTE | 2019-06-15 14:28 | P.PN ---
Subjective Progress Note Date: 06/15/19 CHIEF COMPLAINT: Gastric outlet obstruction HISTORY OF PRESENT ILLNESS: The patient is a 68 year old female status post sleeve gastrectomy 06/05/2019. She had prolonged hospitalization up to 06/12/2019. She reports prior to surgery constantly vomiting her 2-week pre- surgical liquid diet. She confirms only drinking cold beverages and vomiting. She has tolerated decaf coffee with sweet n low and cream. Per discussion with nursing, she had several episodes of emesis last night at 4 after trial of home medications and cold sherbet. REVIEW OF ORGAN SYSTEMS: PHYSICAL EXAM: VITALS: Reviewed CONSTITUTIONAL: Well developed and in no acute distress. EYES: Conjuctivae without sclera icterus. Pupils are equally round and reactive to light. Extraocular movements grossly intact. HEAD, EARS, NOSE, THROAT: Moist buccal mucosa. Head is atraumatic, normocephalic. Hears conversational speech. No nasal drainage. Edentulous NECK: Supple. No JV distention. RESPIRATORY: Non-labored respirations and equal bilateral excursions. No gross wheezes. CARDIOVASCULAR: Regular rate and rhythm. Extremities without moderate edema. Palpable 2+ radial pulses. ABDOMEN: Soft. Non-tender. Nondistended. MUSCULOSKELETAL: Warm and well perfused with good skin turgor. NEUROLOGIC: Cranial nerves I through XII grossly intact. Sensation upper and extremities intact. No focal or lateralizing signs. PSYCH: Appropriate affect. Alert and oriented to person, place and time. Displays appropriate insight. LABS: Blood sugar glucose between 147-193 ASSESSMENT: 1. Gastric outlet obstruction 2. Status post sleeve gastrectomy 3. Diabetes mellitus type II 4. Intractable nausea and vomiting 5. Pre-existing esophageal dysphagia prior to surgery PLAN: 1. Repeat esophagram for tomorrow 2. Will do trial of warm beverages such as decaf coffee that she has tolerated in the past. 3. May need evaluation for TPN for an adequate protein intake and protein malnutrition 4. Dietitian education 5. May need swallow study from speech pathology for pre-existing dysphagia present prior to surgery. Objective - Vital Signs Vital signs: Vital Signs Temp 97.8 F 06/15/19 07:00 Pulse 66 06/15/19 08:00 Resp 17 06/15/19 08:00 BP 151/85 06/15/19 07:00 Pulse Ox 91 L 06/15/19 07:00 Intake & Output 06/14/19 06/15/19 06/15/19 18:59 06:59 18:59 Intake Total 600 150 Balance 600 150 Intake: Intake, IV Titration 600 100 Amount Sodium Chloride 0.9% 1, 600 100 000 ml @ 100 mls/hr IV . Q10H MARISA Rx#:[id number] Oral 50 Other: Voiding Method Toilet Toilet Toilet - Labs CBC & Chem 7: 06/13/19 21:03 06/13/19 21:03 Labs: Abnormal Lab Results - Last 24 Hours (Table) 06/14/19 06/14/19 06/15/19 Range/Units 17:02 20:24 06:49 POC Glucose (mg/dL) 160 H 193 H 175 H (75-99) mg/dL 06/15/19 Range/Units 11:42 POC Glucose (mg/dL) 176 H (75-99) mg/dL Assessment and Plan (1) High risk for readmission Current Visit: Yes Status: Acute Code(s): Z91.89 - OTH PERSONAL RISK FACTORS, NOT ELSEWHERE CLASSIFIED SNOMED Code(s): 533188915 (2) S/P laparoscopic sleeve gastrectomy Current Visit: Yes Status: Acute Code(s): Z98.84 - BARIATRIC SURGERY STATUS SNOMED Code(s): 041182435 (3) Intractable nausea and vomiting Current Visit: Yes Status: Acute Code(s): R11.2 - NAUSEA WITH VOMITING, UNSPECIFIED SNOMED Code(s): 314381134 (4) Diabetes type 2, uncontrolled Current Visit: Yes Status: Acute Code(s): E11.65 - TYPE 2 DIABETES MELLITUS WITH HYPERGLYCEMIA SNOMED Code(s): 865674639 (5) Hypothyroidism Current Visit: Yes Status: Acute Code(s): E03.9 - HYPOTHYROIDISM, UNS PECIFIED SNOMED Code(s): 32617184 (6) Chronic depressive disorder Current Visit: Yes Status: Acute Code(s): F32.9 - MAJOR DEPRESSIVE DISORDER, SINGLE EPISODE, UNSPECIFIED SNOMED Code(s): 502911034 (7) Obstructive sleep apnea Current Visit: Yes Status: Acute Code(s): G47.33 - OBSTRUCTIVE SLEEP APNEA (ADULT) (PEDIATRIC) SNOMED Code(s): 80108755 (8) Body mass index (BMI) 40.0-44.9, adult Current Visit: Yes Status: Acute Code(s): Z68.41 - BODY MASS INDEX (BMI) 40.0-44.9, ADULT SNOMED Code(s): 621444932 (9) Dysphagia Current Visit: Yes Status: Acute Code(s): R13.10 - DYSPHAGIA, UNSPECIFIED SNOMED Code(s): 24051370
[2019-06-15 16:53] LABS: Glucose,Whole Blood 208 mg/dL (75-99)
[2019-06-15] MEDS: PANTOPRAZOLE 40 MG/10 ML VIAL IVP SCH (20:23)
[2019-06-15] MEDS: HEPARIN SODIUM,PORCINE 5,000 UNIT/ML 1 ML VIAL SQ SCH (20:23)
[2019-06-15 20:39] LABS: Glucose,Whole Blood 208 mg/dL (75-99)
[2019-06-16] MEDS: METOCLOPRAMIDE 5 MG/ML 2 ML VIAL IVP SCH ×5 (00:22→23:40)
--- NOTE | 2019-06-16 00:35 | CONS ---
CONSULTATION DATE OF SERVICE: 06/15/2019 REASON FOR CONSULTATION: Advice regarding diabetes and other multiple medical issues requested by surgery. HISTORY OF PRESENT ILLNESS: This 68-year-old woman with a past medical history of diabetes, hypertension, hyperlipidemia, history of skin disorder, being followed by primary physician in the [place] area recently had a gastric sleeve surgery by Dr. Carpio. Subsequently patient went home. Since , the patient has significant nausea and vomiting and unable to keep anything down. Patient was admitted to [facility] subsequently transferred to [facility] under Dr. Pelletier and the patient being closely monitored at this time. The patient has intractable nausea and vomiting. There is no history of fever, rigors. No history of headache, loss of consciousness, chest pain or palpitations. PAST MEDICAL HISTORY: 1. Diabetes. 2. Hypertension. 3. Hyperlipidemia. 4. History of sleep apnea. 5. History of bariatric surgery. MEDICATIONS: Home medications are: 1. Januvia 100 mg p.o. daily. 2. Metformin 1000 mg p.o. b.i.d. 3. Glucotrol 10 mg a.c. breakfast. 4. Carafate 1 g b.i.d. 5. Simethicone. 6. Zofran q.8h p.r.n. 7. Omeprazole 40 mg p.o. 8. Lisinopril 20 mg. 9. Synthroid 125 mcg. 10.[place] 5 mg q.6h. 11.Prozac 40 mg p.o. daily. 12.Fluoxetine 20 mg q.h.s. 13.MiraLAX 5 mg daily p.r.n. 14.Lipitor 20 mg q.h.s. ALLERGIES: None. FAMILY HISTORY: History of cancer in the family. SOCIAL HISTORY: No history of smoking. Occasional alcohol intake. REVIEW OF SYSTEMS: ENT: No diminished vision. No diminished hearing. CARDIOVASCULAR SYSTEM: As mentioned earlier. RESPIRATORY: As mentioned earlier. GI no nausea or vomiting. no dysuria. NERVOUS SYSTEM: No numbness or weakness. ALLERGY/IMMUNOLOGY: No asthma or hayfever. MUSCULOSKELETAL as mentioned earlier. HEMATOLOGY/ONCOLOGY: No history of anemia. ENDOCRINE: Hypothyroidism, diabetes. CONSTITUTIONAL: As mentioned earlier. DERMATOLOGY: Negative. RHEUMATOLOGY negative. PSYCHIATRY as mentioned. PHYSICAL EXAMINATION: Alert and oriented x3. Pulse is 66. Blood pressure 126/62. Respiration 18. Temperature 98.2, pulse ox 98% on room air. HEENT: Oral mucosa moist. NECK is no jugular venous distention. No carotid bruit. No lymph node enlargement. CARDIOVASCULAR systems: S1, S2 muffled. RESPIRATION: Breath sounds diminished in the bases. A few scattered rhonchi. No crackles. ABDOMEN: Soft, obese. Status post recent surgery. No guarding. No rigidity. LEGS no edema. No swelling. NERVOUS SYSTEM: Higher functions as mentioned earlier. Moves all four limbs. No focal deficits. LYMPHATICS: No lymph nodes palpable in the neck, axillae or groin. JOINTS: Joints no active deforming arthropathy. LABS: Accu-Cheks 171, 176, 208, otherwise AST 93 and ALT is 57. ASSESSMENT: 1. Intractable nausea and vomiting. 2. Recent laparoscopic gastric sleeve surgery. 3. Elevated AST/ALT. 4. Diabetes mellitus type 2. 5. Hypertension. 6. Hyperlipidemia. 7. History of sleep apnea. 8. Nonobstructing right renal calculus. 9. History of hypothyroidism. 10.History of lupus. 11.History of bariatric surgery. 12.History of degenerative joint disease. 13.History of breast reduction. 14.History of ORIF of the right ankle. 15.History of depression. 16.Obesity with body mass index of 42.6. 17.FULL CODE. RECOMMENDATIONS AND DISCUSSION: In this 68-year-old woman who presented after surgery, at this time, I recommend to continue the current medications, management and symptomatic treatment. Patient is on IV fluids at this time. The abdominal pelvis CAT scan was done which showed nonobstructing right renal calculus. I would also recommend a chest x-ray for completion of the workup and repeat labs. Follow the patient closely with you. Proton pump inhibitors. DVT prophylaxis. Monitor blood sugars closely. Monitor blood pressure closely. Thank you for letting us participate in the care of this patient. MMODL / IJN: [id number] /
[2019-06-16] MEDS: DEXAMETHASONE SOD PHOSPHATE 4 MG/ML 1 ML VIAL IV SCH ×4 (00:50→20:35)
[2019-06-16] MEDS: LEVOTHYROXINE 125 MCG TAB PO SCH (05:15)
[2019-06-16 06:52] LABS: Glucose,Whole Blood 197 mg/dL (75-99)
[2019-06-16 07:37] LABS: HCT 40.5 % (34.0-46.0); HGB 13.2 gm/dL (11.4-16.0); MCH 29.3 pg (25.0-35.0); MCHC 32.6 g/dL (31.0-37.0); MCV 89.9 fL (80.0-100.0); Mean Platelet Volume 8.4; Platelet Count 241 k/uL (150-450); RBC 4.51 m/uL (3.80-5.40); RDW 12.9 % (11.5-15.5); WBC 9.2 k/uL (3.8-10.6)
[2019-06-16] MEDS: INSULIN ASPART (NovoLOG) 100 UNIT/ML VIAL SQ SCH ×4 (07:37→20:35)
[2019-06-16] MEDS: ONDANSETRON 4 MG/2 ML VIAL IVP PRN (07:41)
[2019-06-16] MEDS: SIMETHICONE 40 MG/0.6 ML DROPS 2,000 MG/30 ML BOTTLE PO SCH ×4 (07:48→20:37)
[2019-06-16 08:02] LABS: ALT 34 U/L (4-34); AST 26 U/L (14-36); African American GFR (CKD) >90 (>60 ml/min/1.73 sqM); Albumin 3.6 g/dL (3.5-5.0); Alkaline Phosphatase 80 U/L (38-126); Anion Gap 11 mmol/L; Blood Urea Nitrogen 17 mg/dL (7-17); Carbon Dioxide 22 mmol/L (22-30); Chloride 105 mmol/L (98-107); Glucose 216 mg/dL (74-99); Non-African American GFR(CKD) 88 (>60 ml/min/1.73 sqM); Potassium 4.1 mmol/L (3.5-5.1); Sodium 138 mmol/L (137-145); Total Bilirubin 0.8 mg/dL (0.2-1.3); Total Protein 6.4 g/dL (6.3-8.2)
[2019-06-16] MEDS: HEPARIN SODIUM,PORCINE 5,000 UNIT/ML 1 ML VIAL SQ SCH ×2 (08:47→20:35)
[2019-06-16] MEDS: LISINOPRIL 20 MG TAB PO SCH (08:47)
[2019-06-16] MEDS: PANTOPRAZOLE 40 MG/10 ML VIAL IVP SCH ×2 (08:47→20:36)
--- NOTE | 2019-06-16 10:17 | FL ---
EXAMINATION TYPE: FL esophagus cervic/pharynx DATE OF EXAM: 06/16/2019 CLINICAL HISTORY: Status post gastric sleeve TECHNIQUE: Single contrast UGI study is performed in a limited fashion at the level of the surgical bed utilizing Isovue 370. 1 minute of fluoroscopy time was utilized with 28 fluoroscopic images saved . FINDINGS: The patient swallowed contrast without difficulty or delay. Distal esophageal peristalsis and motility are within normal limits. There is good flow of contrast along the diaphragmatic hiatus into the stomach, there is no evidence of contrast extravasation to suggest leak. Mild delay is seen of flow of contrast from the gastric fundus into the duodenum. Patient remains asymptomatic. IMPRESSION: No evidence of leak or significant obstruction status post gastric sleeve.
--- NOTE | 2019-06-16 10:34 | P.PN ---
<Alexandra Ramires A - Last Filed: 06/16/19 10:25> Subjective Progress Note Date: 06/16/19 CHIEF COMPLAINT: nausea, vomiting HISTORY OF PRESENT ILLNESS: Patient examined at the bedside. She reports persistent inability to tolerate liquids. She states she has only been taking in sips of water and it comes up with every sip. UGI reveals no evidence of leak or significant obstruction. Patient told Dr. Pelletier over the weekend she was vomiting prior to surgery for 2-3 weeks. However, when patient was asked about this today she reports she does not remember if she was throwing up before surgery or not. PHYSICAL EXAM: VITAL SIGNS: Reviewed. GENERAL: Well-developed in no acute distress. HEENT: No sclera icterus. Extraocular movements grossly intact. Moist buccal mucosa. Head is atraumatic, normocephalic. Hears conversational speech. No nasal drain age. NECK: Supple without lymphadenopathy. CHEST: Non-labored respirations and equal bilateral excursions. CARDIOVASCULAR: Regular rate with regular rhythm. Palpable 2+ radial pulses. ABDOMEN: Soft. Nondistended. Nontender. Incisions clean dry intact. MUSCULOSKELETAL: No clubbing, cyanosis or edema. NEUROLOGIC: No focal or lateralizing signs. Cranial nerves II through XII grossly intact. PSYCH: Appropriate affect. Alert and oriented to person, place and time. SKIN: Well perfused. Good skin turgor. ASSESSMENT: 1. Gastric outlet obstruction 2. Status post sleeve gastrectomy 3. Diabetes mellitus type II 4. Intractable nausea and vomiting 5. Questionable Pre-existing esophageal dysphagia prior to surgery PLAN: Continue sips of clear liquids as tolerated Continue IV Decadron Continue IV Reglan Consult dietary to begin PPN Nurse practitioner note has been reviewed by physician. Signing provider agrees with the documented findings, assessment, and plan of care. Objective - Vital Signs Vital signs: Vital Signs Temp 98.1 F 06/16/19 07:00 Pulse 53 L 06/16/19 07:00 Resp 16 06/16/19 07:00 BP 141/84 06/16/19 07:00 Pulse Ox 96 06/16/19 07:00 Intake & Output 06/15/19 06/16/19 06/16/19 18:59 06:59 18:59 Intake Total 700 Output Total 285 Balance 415 Intake: Intake, IV Titration 700 Amount Sodium Chloride 0.9% 1, 700 000 ml @ 100 mls/hr IV . Q10H MARISA Rx#:[id number] Output: Emesis 285 Other: Voiding Method Toilet # Voids 3 - Labs CBC & Chem 7: 06/16/19 06:31 06/16/19 06:31 Labs: Abnormal Lab Results - Last 24 Hours (Table) 06/15/19 06/15/19 06/15/19 Range/Units 11:42 16:52 20:37 Glucose (74-99) mg/dL POC Glucose (mg/dL) 176 H 208 H 208 H (75-99) mg/dL 06/16/19 06/16/19 Range/Units 06:31 06:51 Glucose 216 H (74-99) mg/dL POC Glucose (mg/dL) 197 H (75-99) mg/dL <Ely Pelletier N - Last Filed: 06/16/19 17:57> Subjective Patient re-evaluated this evening. She is tolerating warm beverages. Esophogram independently reviewed shows no obstruction despite patient prior emesis. Results of study reviewed with her. Goal to start bariatric clears to full liquid diet described. Agree with start of PPN. Continue conservative management. Recommend bariatric life scientist assessment. Objective - Vital Signs Vital signs: Vital Signs Temp 97.9 F 06/16/19 14:55 Pulse 53 L 06/16/19 14:55 Resp 15 06/16/19 14:55 BP 160/97 06/16/19 14:55 Pulse Ox 98 06/16/19 14:55 Intake & Output 06/15/19 06/16/19 06/16/19 18:59 06:59 18:59 Intake Total 700 Output Total 285 Balance 415 Weight 116 kg Intake: Intake, IV Titration 700 Amount Sodium Chloride 0.9% 1, 700 000 ml @ 100 mls/hr IV . Q10H MARISA Rx#:[id number] Output: Emesis 285 Other: Voiding Method Toilet # Voids 3 - Labs CBC & Chem 7: 06/16/19 06:31 06/16/19 06:31 Labs: Abnormal Lab Results - Last 24 Hours (Table) 06/15/19 06/16/19 06/16/19 Range/Units 20:37 06:31 06:51 Glucose 216 H (74-99) mg/dL POC Glucose (mg/dL) 208 H 197 H (75-99) mg/dL 06/16/19 06/16/19 Range/Units 11:15 16:30 Glucose (74-99) mg/dL POC Glucose (mg/dL) 180 H 221 H (75-99) mg/dL Assessment and Plan (1) High risk for readmission Current Visit: Yes Status: Acute Code(s): Z91.89 - OTH PERSONAL RISK FACTORS, NOT ELSEWHERE CLASSIFIED SNOMED Code(s): 227921206 (2) S/P laparoscopic sleeve gastrectomy Current Visit: Yes Status: Acute Code(s): Z98.84 - BARIATRIC SURGERY STATUS SNOMED Code(s): 218751800 (3) Intractable nausea and vomiting Current Visit: Yes Status: Acute Code(s): R11.2 - NAUSEA WITH VOMITING, UNSPECIFIED SNOMED Code(s): 519780724 (4) Diabetes type 2, uncontrolled Current Visit: Yes Status: Acute Code(s): E11.65 - TYPE 2 DIABETES MELLITUS WITH HYPERGLYCEMIA SNOMED Code(s): 474303205 (5) Hypothyroidism Current Visit: Yes Status: Acute Code(s): E03.9 - HYPOTHYROIDISM, UNSPECIFIED SNOMED Code(s): 84762537 (6) Chronic depressive disorder Current Visit: Yes Status: Acute Code(s): F32.9 - MAJOR DEPRESSIVE DISORDER, SINGLE EPISODE, UNSPECIFIED SNOMED Code(s): 076269291 (7) Obstructive sleep apnea Current Visit: Yes Status: Acute Code(s): G47.33 - OBSTRUCTIVE SLEEP APNEA (ADULT) (PEDIATRIC) SNOMED Code(s): 72987041 (8) Body mass index (BMI) 40.0-44.9, adult Current Visit: Yes Status: Acute Code(s): Z68.41 - BODY MASS INDEX (BMI) 40.0-44.9, ADULT SNOMED Code(s): 611848809 (9) Dysphagia Current Visit: Yes Status: Acute Code(s): R13.10 - DYSPHAGIA, UNSPECIFIED SNOMED Code(s): 30553276
[2019-06-16 11:16] LABS: Glucose,Whole Blood 180 mg/dL (75-99)
[2019-06-16 12:27] LABS: Magnesium 1.6 mg/dL (1.6-2.3)
[2019-06-16] MEDS ORDERED: MVI, ADULT NO.4 WITH VIT K 10 ML, TRACE (CONC-1ML/DOSE) 1 ML in AMINO ACID 4.25%-D10W+L... IV ONE ×3 (13:00)
[2019-06-16] MEDS: FAT EMULSION 20% 250 ML IV SCH (14:47)
[2019-06-16] MEDS: MAGNESIUM SULFATE-D5W PMX 1 GM in DEXTROSE/WATER 1 100ML.BAG IVPB SCH ×2 (15:09→16:41)
[2019-06-16] MEDS: SODIUM CHLORIDE 0.9% 1,000 ML IV SCH (15:11)
[2019-06-16 16:31] LABS: Glucose,Whole Blood 221 mg/dL (75-99)
[2019-06-16 20:20] LABS: Glucose,Whole Blood 234 mg/dL (75-99)
[2019-06-16] MEDS: INSULIN DETEMIR (LEVEMIR) 100 UNIT/ML SYR SQ SCH (23:40)
[2019-06-16 23:41] LABS: Glucose,Whole Blood 253 mg/dL (75-99)
--- NOTE | 2019-06-17 00:23 | PN ---
PROGRESS NOTE DATE OF SERVICE: 06/16/2019 This 68-year-old woman who recently had gastric sleeve surgery by Dr. Carpio was admitted with intractable nausea and vomiting. The patient is being closely monitored. No chest pain. No palpitations. No fever. The patient had an upper series and the esophagogram showed no evidence of leak or significant obstruction in the gastric sleeve area. No chest pain. No palpitations. No fever. PHYSICAL EXAMINATION: Alert and oriented x3. Pulse 55, blood pressure 131/85, respiration 14, temperature 97.7, pulse ox 99% on room air. HEENT: Conjunctivae normal. Oral mucosa moist. NECK: No jugular venous distention. No carotid bruit. No lymph node enlargement. CARDIOVASCULAR SYSTEM: S1, S2 muffled. RESPIRATORY SYSTEM: Breath sounds diminished at the bases. No rhonchi. No crackles. ABDOMEN: Soft, non-tender. No mass palpable. LEGS: No edema. No swelling. NERVOUS SYSTEM: ntd LABS: WBC noted. CBC noted. Accu-Cheks are 221 and 234. ASSESSMENT: 1. Intractable nausea and vomiting with possible gastric outlet obstruction. 2. Recent laparoscopic gastric sleeve surgery. 3. Elevated AST and ALT. 4. Diabetes mellitus, type 2. 5. Hypertension. 6. Hyperlipidemia. 7. History of sleep apnea. 8. Nonobstructing right renal calculi. 9. History of hypothyroidism. 10.History of lupus. 11.History of bariatric surgery. 12.History of degenerative joint disease. 13.History of breast reduction. 14.History of open reduction internal fixation of the right ankle. 15.History of depression. 16.Obesity with body mass index of 42.6. 17.FULL CODE. RECOMMENDATIONS AND DISCUSSION: In this 68-year-old woman who presented with multiple complex medical issues, we will monitor the patient closely, continue the current medications, continue with symptomatic treatment. I would recommend a small dose of Lantus insulin currently to control the blood sugars. Once the patient is fully p.o., the home dose of medication may be initiated. Further recommendations to follow. MMODL / IJN: [id number] / MTDD
[2019-06-17] MEDS: DEXAMETHASONE SOD PHOSPHATE 4 MG/ML 1 ML VIAL IV SCH ×4 (02:12→20:22)
[2019-06-17] MEDS: SODIUM CHLORIDE 0.9% 1,000 ML IV SCH ×3 (02:13→20:23)
[2019-06-17] MEDS: METOCLOPRAMIDE 5 MG/ML 2 ML VIAL IVP SCH (05:26)
[2019-06-17] MEDS: LEVOTHYROXINE 125 MCG TAB PO SCH (05:27)
[2019-06-17 06:49] LABS: Glucose,Whole Blood 311 mg/dL (75-99)
[2019-06-17] MEDS: INSULIN ASPART (NovoLOG) 100 UNIT/ML VIAL SQ SCH ×4 (08:05→20:35)
[2019-06-17] MEDS: HEPARIN SODIUM,PORCINE 5,000 UNIT/ML 1 ML VIAL SQ SCH ×2 (08:05→20:23)
[2019-06-17] MEDS: LISINOPRIL 20 MG TAB PO SCH (08:05)
[2019-06-17] MEDS: PANTOPRAZOLE 40 MG/10 ML VIAL IVP SCH ×2 (08:06→20:22)
[2019-06-17] MEDS: SIMETHICONE 40 MG/0.6 ML DROPS 2,000 MG/30 ML BOTTLE PO SCH ×4 (08:06→20:24)
[2019-06-17 08:38] LABS: African American GFR (CKD) >90 (>60 ml/min/1.73 sqM); Anion Gap 9 mmol/L; Blood Urea Nitrogen 17 mg/dL (7-17); Calcium 8.5 mg/dL (8.4-10.2); Carbon Dioxide 20 mmol/L (22-30); Chloride 105 mmol/L (98-107); Glucose 294 mg/dL (74-99); Magnesium 1.8 mg/dL (1.6-2.3); Non-African American GFR(CKD) >90 (>60 ml/min/1.73 sqM); Phosphorus 3.3 mg/dL (2.5-4.5); Sodium 134 mmol/L (137-145); Triglycerides 97 mg/dL (<150)
[2019-06-17 09:24] LABS: Ionized Calcium 4.9 mg/dL (4.5-5.3)
--- NOTE | 2019-06-17 10:22 | P.PN ---
<Alexandra Ramires A - Last Filed: 06/17/19 10:18> Subjective Progress Note Date: 06/17/19 CHIEF COMPLAINT: nausea, vomiting HISTORY OF PRESENT ILLNESS: Patient examined at the bedside. Patient reports she was able to tolerate warm clear liquids. She reports she threw up jello and sherbet this morning. Patient states just thinking about liquids makes her nauseous and went to throw up. She has been unable to take her Prozac during hospitalization secondary to interactions with Reglan and Zofran. She denies nausea or vomiting. Pain is controlled. PHYSICAL EXAM: VITAL SIGNS: Reviewed. GENERAL: Well-developed in no acute distress. HEENT: No sclera icterus. Extraocular movements grossly intact. Moist buccal mucosa. Head is atraumatic, normocephalic. Hears conversational speech. No nasal drainage. NECK: Supple without lymphadenopathy. CHEST: Non-labored respirations and equal bilateral excursions. CARDIOVASCULAR: Regular rate with regular rhythm. Palpable 2+ radial pulses. ABDOMEN: Soft. Nondistended. Nontender. Incisions clean dry intact. MUSCULOSKELETAL: No clubbing, cyanosis or edema. NEUROLOGIC: No focal or lateralizing signs. Cranial nerves II through XII grossly intact. PSYCH: Appropriate affect. Alert and oriented to person, place and time. SKIN: Well perfused. Good skin turgor. ASSESSMENT: 1. Gastric outlet obstruction 2. Status post sleeve gastrectomy 3. Diabetes mellitus type II 4. Intractable nausea and vomiting 5. Questionable Pre-existing esophageal dysphagia prior to surgery PLAN: Advance diet to bariatric full liquid DC Reglan and Zofran so patient may resume her Prozac. Scopolamine patch for nausea Continue PPN Nurse practitioner note has been reviewed by physician. Signing provider agrees with the documented findings, assessment, and plan of care. Objective - Vital Signs Vital signs: Vital Signs Temp 98.4 F 06/17/19 07:00 Pulse 53 L 06/17/19 07:00 Resp 16 06/17/19 07:00 BP 153/77 06/17/19 07:00 Pulse Ox 95 06/17/19 07:00 Intake & Output 06/16/19 06/17/19 06/17/19 18:59 06:59 18:59 Weight 116 kg Other: Voiding Method Toilet - Labs CBC & Chem 7: 06/16/19 06:31 06/17/19 07:02 Labs: Abnormal Lab Results - Last 24 Hours (Table) 06/16/19 06/16/19 06/16/19 Range/Units 11:15 16:30 20:18 Sodium (137-145) mmol/L Carbon Dioxide (22-30) mmol/L Glucose (74-99) mg/dL POC Glucose (mg/dL) 180 H 221 H 234 H (75-99) mg/dL 06/16/19 06/17/19 06/17/19 Range/Units 23:39 06:48 07:02 Sodium 134 L (137-145) mmol/L Carbon Dioxide 20 L (22-30) mmol/L Glucose 294 H (74-99) mg/dL POC Glucose (mg/dL) 253 H 311 H (75-99) mg/dL <Ely Pelletier N - Last Filed: 06/18/19 11:39> Subjective Despite normal esophagram, patient reports still having emesis. Continue PPN. Recommend start of antidepressant. Discontinue Reglan and Zofran for combined defect with Prozac for bradycardia arrhythmia Objective - Vital Signs Vital signs: Vital Signs Temp 98.3 F 06/18/19 07:00 Pulse 51 L 06/18/19 08:00 Resp 18 06/18/19 08:00 BP 164/81 06/18/19 07:00 Pulse Ox 98 06/18/19 07:00 Intake & Output 06/17/19 06/18/19 06/18/19 18:59 06:59 18:59 Intake Total 1000 Output Total 100 Balance 1000 -100 Intake: Intake, IV Titration 1000 Amount Amino Acid 4.25%-D10w+ 1000 Lytes*E* 1,000 ml @ 83 mls/hr IV .BY DURATION MARISA Rx#:[id number] Output: Emesis 100 Other: Voiding Method Toilet Toilet # Voids 1 - Labs CBC & Chem 7: 06/16/19 06:31 06/18/19 06:05 Labs: Abnormal Lab Results - Last 24 Hours (Table) 06/17/19 06/17/19 06/18/19 Range/Units 16:27 20:32 06:05 Sodium 135 L (137-145) mmol/L BUN 21 H (7-17) mg/dL Glucose 314 H (74-99) mg/dL POC Glucose (mg/dL) 316 H 318 H (75-99) mg/dL 06/18/19 Range/Units 07:12 Sodium (137-145) mmol/L BUN (7-17) mg/dL Glucose (74-99) mg/dL POC Glucose (mg/dL) 323 H (75-99) mg/dL Assessment and Plan (1) High risk for readmission Current Visit: Yes Status: Acute Code(s): Z91.89 - OTH PERSONAL RISK FACTORS, NOT ELSEWHERE CLASSIFIED SNOMED Code(s): 588181179 (2) S/P laparoscopic sleeve gastrectomy Current Visit: Yes Status: Acute Code(s): Z98.84 - BARIATRIC SURGERY STATUS SNOMED Code(s): 821468903 (3) Intractable nausea and vomiting Current Visit: Yes Status: Acute Code(s): R11.2 - NAUSEA WITH VOMITING, UNSPECIFIED SNOMED Code(s): 204354647 (4) Diabetes type 2, uncontrolled Current Visit: Yes Status: Acute Code(s): E11.65 - TYPE 2 DIABETES MELLITUS WITH HYPERGLYCEMIA SNOMED Code(s): 150807304 (5) Hypothyroidism Current Visit: Yes Status: Acute Code(s): E03.9 - HYPOTHYROIDISM, UNSPECIFIED SNOMED Code(s): 83418942 (6) Chronic depressive disorder Current Visit: Yes Status: Acute Code(s): F32.9 - MAJOR DEPRESSIVE DISORDER, SINGLE EPISODE, UNSPECIFIED SNOMED Code(s): 733639936 (7) Obstructive sleep apnea Current Visit: Yes Status: Acute Code(s): G47.33 - OBSTRUCTIVE SLEEP APNEA (ADULT) (PEDIATRIC) SNOMED Code(s): 82524192 (8) Body mass index (BMI) 40.0-44.9, adult Current Visit: Yes Status: Acute Code(s): Z68.41 - BODY MASS INDEX (BMI) 40.0-44.9, ADULT SNOMED Code(s): 307855842 (9) Dysphagia Current Visit: Yes Status: Acute Code(s): R13.10 - DYSPHAGIA, UNSPECIFIED SNOMED Code(s): 11563623
[2019-06-17] MEDS ORDERED: SCOPOLAMINE 1.5MG/72HR PATCH TRANSDERM SCH (10:30)
[2019-06-17 11:10] LABS: Glucose,Whole Blood 211 mg/dL (75-99)
[2019-06-17] MEDS: FLUoxetine HCL 20 MG CAP PO SCH (12:05)
[2019-06-17] MEDS: MAGNESIUM SULFATE-D5W PMX 1 GM in DEXTROSE/WATER 1 100ML.BAG IVPB SCH ×2 (12:06→14:27)
[2019-06-17] MEDS: 1: MVI, ADULT NO.4 WITH VIT K 10 ML, TRACE (CONC-1ML/DOSE) 1 ML in AMINO ACID 4.25%-D10W IV SCH ×6 (14:29→20:23)
[2019-06-17] MEDS: SCOPOLAMINE 1.5MG/72HR PATCH TRANSDERM SCH (14:39)
[2019-06-17 16:28] LABS: Glucose,Whole Blood 316 mg/dL (75-99)
[2019-06-17] MEDS: INSULIN DETEMIR (LEVEMIR) 100 UNIT/ML SYR SQ SCH (20:22)
[2019-06-17 20:33] LABS: Glucose,Whole Blood 318 mg/dL (75-99)
--- NOTE | 2019-06-17 21:00 | PN ---
PROGRESS NOTE DATE OF SERVICE: 06/17/2019 This 68-year-old woman with a past medical history of multiple medical problems was admitted with intractable nausea and vomiting; patient unable to keep anything down. The patient had recent sleeve surgery and Surgery is following the patient closely. Patient was started on PPI. No chest pain. No palpitations. No fever. PHYSICAL EXAMINATION: Alert and oriented x3. Pulse 54, blood pressure 151/86, respirations 16, temperature 98.8, pulse ox 98% on room air. HEENT: Conjunctivae normal. NECK: No jugular venous distention. CARDIOVASCULAR SYSTEM: S1, S2 muffled. RESPIRATORY SYSTEM: Breath sounds diminished at the bases. No rhonchi. No crackles. ABDOMEN: Soft. No guarding. NERVOUS SYSTEM: No focal deficit. LABS: Sodium 134. Glucose 316. ASSESSMENT: 1. Intractable nausea and vomiting with possible gastric outlet obstruction. 2. Recent laparoscopic gastric sleeve surgery. 3. Elevated AST, ALT. 4. Diabetes mellitus, type 2. 5. Hypertension. 6. Hyperlipidemia. 7. History of sleep apnea. 8. Nonobstructing right renal calculi. 9. History of hypothyroidism. 10.History of lupus. 11.History of bariatric surgery. 12.History of degenerative joint disease. 13.History of breast reduction. 14.History of open reduction internal fixation of the right ankle. 15.History of depression. 16.Obesity with body mass index of 42.6. 17.FULL CODE. RECOMMENDATIONS AND DISCUSSION: I recommend to continue current medications, continue with the monitoring, symptomatic treatment. Closely follow with Surgery. Surgical evaluation of the continued symptoms. Further recommendations to follow. MMODL / IJN: [id number] /
[2019-06-18] MEDS: DEXAMETHASONE SOD PHOSPHATE 4 MG/ML 1 ML VIAL IV SCH ×4 (00:46→20:36)
[2019-06-18] MEDS: 1: MVI, ADULT NO.4 WITH VIT K 10 ML, TRACE (CONC-1ML/DOSE) 1 ML in AMINO ACID 4.25%-D10W IV SCH ×6 (03:47→17:01)
[2019-06-18] MEDS: SODIUM CHLORIDE 0.9% 1,000 ML IV SCH ×2 (04:37→17:00)
[2019-06-18 07:24] LABS: Glucose,Whole Blood 323 mg/dL (75-99)
[2019-06-18 07:35] LABS: African American GFR (CKD) >90 (>60 ml/min/1.73 sqM); Anion Gap 10 mmol/L; Blood Urea Nitrogen 21 mg/dL (7-17); Calcium 9.1 mg/dL (8.4-10.2); Carbon Dioxide 23 mmol/L (22-30); Chloride 102 mmol/L (98-107); Glucose 314 mg/dL (74-99); Magnesium 1.9 mg/dL (1.6-2.3); Non-African American GFR(CKD) 85 (>60 ml/min/1.73 sqM); Phosphorus 3.3 mg/dL (2.5-4.5); Sodium 135 mmol/L (137-145)
[2019-06-18] MEDS: FLUoxetine HCL 20 MG CAP PO SCH (08:01)
[2019-06-18] MEDS: LISINOPRIL 20 MG TAB PO SCH (08:01)
[2019-06-18] MEDS: PANTOPRAZOLE 40 MG/10 ML VIAL IVP SCH ×2 (08:01→20:37)
[2019-06-18] MEDS: LEVOTHYROXINE 125 MCG TAB PO SCH (08:01)
[2019-06-18] MEDS: INSULIN ASPART (NovoLOG) 100 UNIT/ML VIAL SQ SCH ×4 (08:02→20:37)
[2019-06-18] MEDS: SIMETHICONE 40 MG/0.6 ML DROPS 2,000 MG/30 ML BOTTLE PO SCH ×4 (08:02→20:37)
[2019-06-18] MEDS: HEPARIN SODIUM,PORCINE 5,000 UNIT/ML 1 ML VIAL SQ SCH ×2 (08:02→20:36)
[2019-06-18 11:58] LABS: Glucose,Whole Blood 319 mg/dL (75-99)
[2019-06-18] MEDS: FAT EMULSION 20% 250 ML IV SCH (13:17)
--- NOTE | 2019-06-18 13:56 | P.PN ---
Subjective Progress Note Date: 06/18/19 CHIEF COMPLAINT: Gastric outlet obstruction HISTORY OF PRESENT ILLNESS: The patient is a 68 year old female status post sleeve gastrectomy 06/05/2019. She reports intractable nausea and vomiting. "I can't stand the site of the liquids. The smell of it makes me puck!" She wants more variety including mash potatoes. She is less than 2 weeks out. REVIEW OF ORGAN SYSTEMS: No fevers or chills. No chest pain. Reports post-nasal drip for the past week. PHYSICAL EXAM: VITALS: Reviewed CONSTITUTIONAL: Well developed and in no acute distress. EYES: Conjuctivae without sclera icterus. Pupils are equally round and reactive to light. Extraocular movements grossly intact. HEAD, EARS, NOSE, THROAT: Moist buccal mucosa. Head is atraumatic, normocephalic. Hears conversational speech. No nasal drainage. Edentulous. Has hoarse voice. NECK: Supple. No JV distention. RESPIRATORY: Non-labored respirations and equal bilateral excursions. No gross wheezes. CARDIOVASCULAR: Palpable 2+ radial pulses. ABDOMEN: Soft. Non-tender. Nondistended. MUSCULOSKELETAL: Warm and well perfused with good skin turgor. NEUROLOGIC: Cranial nerves I through XII grossly intact. Sensation upper and extremities intact. No focal or lateralizing signs. PSYCH: Appropriate affect. Alert and oriented to person, place and time. Displays appropriate insight. LABS: Blood sugar glucose increased over 300s. WBC normal 9000 ASSESSMENT: 1. Gastric outlet obstruction 2. Status post sleeve gastrectomy 3. Diabetes mellitus type II, poorly controlled 4. Intractable nausea and vomiting 5. Pre-existing esophageal dysphagia prior to surgery 6. Post nasal drainage PLAN: 1. Continue PPN 2. May need transition from PPN to TPN dependent dietary intake 3. Continue inpatient hospitalization 4. Start Claritin for post-nasal drip Objective - Vital Signs Vital signs: Vital Signs Temp 98.3 F 06/18/19 07:00 Pulse 51 L 06/18/19 08:00 Resp 18 06/18/19 08:00 BP 164/81 06/18/19 07:00 Pulse Ox 98 06/18/19 07:00 Intake & Output 06/17/19 06/18/19 06/18/19 18:59 06:59 18:59 Intake Total 1000 Output Total 100 Balance 1000 -100 Intake: Intake, IV Titration 1000 Amount Amino Acid 4.25%-D10w+ 1000 Lytes*E* 1,000 ml @ 83 mls/hr IV .BY DURATION MARISA Rx#:[id number] Output: Emesis 100 Other: Voiding Method Toilet Toilet # Voids 1 - Labs CBC & Chem 7: 06/16/19 06:31 06/18/19 06:05 Labs: Abnormal Lab Results - Last 24 Hours (Table) 06/17/19 06/17/19 06/18/19 Range/Units 16:27 20:32 06:05 Sodium 135 L (137-145) mmol/L BUN 21 H (7-17) mg/dL Glucose 314 H (74-99) mg/dL POC Glucose (mg/dL) 316 H 318 H (75-99) mg/dL 06/18/19 Range/Units 07:12 Sodium (137-145) mmol/L BUN (7-17) mg/dL Glucose (74-99) mg/dL POC Glucose (mg/dL) 323 H (75-99) mg/dL Assessment and Plan (1) High risk for readmission Current Visit: Yes Status: Acute Code(s): Z91.89 - OTH PERSONAL RISK FACTORS, NOT ELSEWHERE CLASSIFIED SNOMED Code(s): 844851302 (2) S/P laparoscopic sleeve gastrectomy Current Visit: Yes Status: Acute Code(s): Z98.84 - BARIATRIC SURGERY STATUS SNOMED Code(s): 797652049 (3) Intractable nausea and vomiting Current Visit: Yes Status: Acute Code(s): R11.2 - NAUSEA WITH VOMITING, UNSPECIFIED SNOMED Code(s): 794211592 (4) Diabetes type 2, uncontrolled Current Visit: Yes Status: Acute Code(s): E11.65 - TYPE 2 DIABETES MELLITUS WITH HYPERGLYCEMIA SNOMED Code(s): 336618595 (5) Hypothyroidism Current Visit: Yes Status: Acute Code(s): E03.9 - HYPOTHYROIDISM, UNSPECIFIED SNOMED Code(s): 84352717 (6) Chronic depressive disorder Current Visit: Yes Status: Acute Code(s): F32.9 - MAJOR DEPRESSIVE DISORDER, SINGLE EPISODE, UNSPECIFIED SNOMED Code(s): 507662159 (7) Obstructive sleep apnea Current Visit: Yes Status: Acute Code(s): G47.33 - OBSTRUCTIVE SLEEP APNEA (ADULT) (PEDIATRIC) SNOMED Code(s): 61202769 (8) Body mass index (BMI) 40.0-44.9, adult Current Visit: Yes Status: Acute Code(s): Z68.41 - BODY MASS INDEX (BMI) 40.0-44.9, ADULT SNOMED Code(s): 779934126 (9) Dysphagia Current Visit: Yes Status: Acute Code(s): R13.10 - DYSPHAGIA, UNSPECIFIED SNOMED Code(s): 33158183
[2019-06-18] MEDS: LORATADINE-PSEUDOEPH 5-120 MG 1 EACH TAB.ER.12H PO SCH ×2 (16:54→20:37)
[2019-06-18 17:15] LABS: Glucose,Whole Blood 243 mg/dL (75-99)
[2019-06-18 19:44] LABS: Glucose,Whole Blood 287 mg/dL (75-99)
[2019-06-18] MEDS ORDERED: INSULIN DETEMIR (LEVEMIR) 100 UNIT/ML SYR SQ SCH (21:00)
--- NOTE | 2019-06-19 00:25 | PN ---
PROGRESS NOTE DATE OF SERVICE: This is 06/18/2019 This 68-year-old woman was admitted with intractable nausea and vomiting, is being closely monitored at this time. Gastric outlet obstruction is a possibility. Surgery is following the patient closely. PPI is initiated. No chest pain. No palpitations. No fever. EXAM: Alert and oriented x3. The pulse is 55, blood pressure 170/96, respiration 14, temperature 98.4, pulse ox 97% on room air HEENT: Conjunctivae normal. Oral mucosa moist. NECK: No jugular venous distention. No lymph node enlargement. CARDIOVASCULAR: S1, S2. RESPIRATORY: Diminished breath sounds at the bases. Scattered rhonchi and crackles. ABDOMEN: Soft. LEGS: No edema, no swelling. NERVOUS SYSTEM: No focal deficits. LAB: Show sodium 135. Accu-Cheks 320, 390 and 243. ASSESSMENT: 1. Intractable nausea and vomiting with possible acute gastric outlet obstruction. 2. Recent laparoscopic gastric sleeve surgery. 3. Increase AST, ALT. 4. Diabetes type 2, uncontrolled with hyperglycemia. 5. Hypertension. 6. History of hyperlipidemia. 7. History of sleep apnea. 8. History of nonobstructive right renal calculus. 9. History of hypothyroidism. 10.History of lupus. 11.History of bariatric surgery. 12.History of degenerative joint disease. 13.History of breast reduction. 14.History ORIF of the right ankle. 15.History of depression. 16.Obesity with body mass index of 43.6. 17.FULL CODE. RECOMMENDATIONS AND DISCUSSION: Recommend to continue current medications, continue to monitor, continue symptomatic treatment. Otherwise, at this time I would recommend monitor blood sugars closely. The patient was taking Januvia and metformin at home. Currently, I recommend the current medications. I would also increase the dose of Levemir. Guarded prognosis. Further recommendations to follow. See orders for details. PT/OT evaluation. MMODL / IJN: [id number] /
[2019-06-19] MEDS: DEXAMETHASONE SOD PHOSPHATE 4 MG/ML 1 ML VIAL IV SCH ×4 (01:18→20:30)
[2019-06-19] MEDS: SODIUM CHLORIDE 0.9% 1,000 ML IV SCH ×2 (01:20→12:04)
[2019-06-19] MEDS: 1: MVI, ADULT NO.4 WITH VIT K 10 ML, TRACE (CONC-1ML/DOSE) 1 ML in AMINO ACID 4.25%-D10W IV SCH ×6 (06:14→16:03)
[2019-06-19] MEDS: LEVOTHYROXINE 125 MCG TAB PO SCH (06:14)
[2019-06-19 06:42] LABS: Glucose,Whole Blood 332 mg/dL (75-99)
[2019-06-19] MEDS: INSULIN ASPART (NovoLOG) 100 UNIT/ML VIAL SQ SCH ×3 (07:13→14:28)
[2019-06-19 07:25] LABS: African American GFR (CKD) >90 (>60 ml/min/1.73 sqM); Anion Gap 10 mmol/L; Blood Urea Nitrogen 20 mg/dL (7-17); Calcium 8.9 mg/dL (8.4-10.2); Carbon Dioxide 27 mmol/L (22-30); Chloride 98 mmol/L (98-107); Glucose 347 mg/dL (74-99); Magnesium 1.6 mg/dL (1.6-2.3); Non-African American GFR(CKD) 88 (>60 ml/min/1.73 sqM); Phosphorus 3.8 mg/dL (2.5-4.5); Potassium 4.3 mmol/L (3.5-5.1); Sodium 135 mmol/L (137-145)
[2019-06-19] MEDS: SIMETHICONE 40 MG/0.6 ML DROPS 2,000 MG/30 ML BOTTLE PO SCH ×4 (07:27→21:10)
[2019-06-19] MEDS: LISINOPRIL 20 MG TAB PO SCH (08:27)
[2019-06-19] MEDS: LORATADINE-PSEUDOEPH 5-120 MG 1 EACH TAB.ER.12H PO SCH ×2 (08:27→20:30)
[2019-06-19] MEDS: MAGNESIUM SULFATE-D5W PMX 1 GM in DEXTROSE/WATER 1 100ML.BAG IVPB SCH ×2 (08:27→10:10)
[2019-06-19] MEDS: HEPARIN SODIUM,PORCINE 5,000 UNIT/ML 1 ML VIAL SQ SCH ×2 (08:27→20:30)
[2019-06-19] MEDS: FLUoxetine HCL 20 MG CAP PO SCH (08:27)
[2019-06-19] MEDS: PANTOPRAZOLE 40 MG/10 ML VIAL IVP SCH ×2 (08:28→20:31)
[2019-06-19 11:12] LABS: Glucose,Whole Blood 300 mg/dL (75-99)
--- NOTE | 2019-06-19 11:35 | P.PN ---
<Alexandra Ramires A - Last Filed: 06/19/19 11:29> Subjective Progress Note Date: 06/19/19 CHIEF COMPLAINT: nausea, vomiting HISTORY OF PRESENT ILLNESS: Patient examined at the bedside. Patient reports throwing up cream of wheat this morning but states afterwards she ate pudding an d tolerated it well. She denies feeling nauseous. She has been able to tolerate some sips of water. Passing flatus. She reports having bowel movements. Vital signs stable. She is afebrile. PHYSICAL EXAM: VITAL SIGNS: Reviewed. GENERAL: Well-developed in no acute distress. HEENT: No sclera icterus. Extraocular movements grossly intact. Moist buccal mucosa. Head is atraumatic, normocephalic. Hears conversational speech. No nasal drainage. NECK: Supple without lymphadenopathy. CHEST: Non-labored respirations and equal bilateral excursions. CARDIOVASCULAR: Regular rate with regular rhythm. Palpable 2+ radial pulses. ABDOMEN: Soft. Nondistended. Nontender. Incisions clean dry intact. MUSCULOSKELETAL: No clubbing, cyanosis or edema. NEUROLOGIC: No focal or lateralizing signs. Cranial nerves II through XII grossly intact. PSYCH: Appropriate affect. Alert and oriented to person, place and time. SKIN: Well perfused. Good skin turgor. ASSESSMENT: 1. Gastric outlet obstruction 2. Status post sleeve gastrectomy 3. Diabetes mellitus type II 4. Intractable nausea and vomiting 5. Questionable Pre-existing esophageal dysphagia prior to surgery PLAN: Continue diet as tolerated Continue PPN. Spoke with Alison dietitian, who states PPN is providing adequate protein for patient and does not require TPN at this time. Continue decadron Continue supportive management Nurse practitioner note has been reviewed by physician. Signing provider agrees with the documented findings, assessment, and plan of care. Objective - Vital Signs Vital signs: Vital Signs Temp 98.0 F 06/19/19 07:00 Pulse 51 L 06/19/19 07:00 Resp 16 06/19/19 07:00 BP 161/84 06/19/19 07:00 Pulse Ox 94 L 06/19/19 07:00 Intake & Output 06/18/19 06/19/19 06/19/19 18:59 06:59 18:59 Intake Total 1011 1240 150 Output Total 150 1 Balance 861 1239 150 Weight 116 kg Intake: Intake, IV Titration 1011 1240 Amount Amino Acid 4.25%-D10w+ 1240 Lytes*E* 1,000 ml @ 83 mls/hr IV .BY DURATION [facility] Rx#:[id number] Mvi, Adult No.4 with Vit 1011 K 10 ml Trace (Conc-1Ml/ Dose) 1 ml In Amino Acid 4.25%-D10w+Lytes*E* 1,000 ml @ 83 mls/hr IV .BY DURATION [facility] Rx#: [id number] Oral 150 Output: Urine 1 Emesis 150 Other: Voiding Method Toilet Toilet Toilet Incontinent # Voids 1 - Labs CBC & Chem 7: 06/16/19 06:31 06/19/19 06:36 Labs: Abnormal Lab Results - Last 24 Hours (Table) 06/18/19 06/18/19 06/18/19 Range/Units 11:45 17:02 19:42 Sodium (137-145) mmol/L BUN (7-17) mg/dL Glucose (74-99) mg/dL POC Glucose (mg/dL) 319 H 243 H 287 H (75-99) mg/dL 06/19/19 06/19/19 06/19/19 Range/Units 06:31 06:36 11:01 Sodium 135 L (137-145) mmol/L BUN 20 H (7-17) mg/dL Glucose 347 H (74-99) mg/dL POC Glucose (mg/dL) 332 H 300 H (75-99) mg/dL <Ely Pelletier N - Last Filed: 06/19/19 23:06> Subjective Patient reports "I want mash potatoes." I discussed with her that the diet would predicate on her tolerating liquids. Recommend trial of pureed diet for change of texture. Objective - Vital Signs Vital signs: Vital Signs Temp 99.0 F 06/19/19 14:03 Pulse 63 06/19/19 14:03 Resp 18 06/19/19 16:00 BP 151/94 06/19/19 14:03 Pulse Ox 98 06/19/19 14:03 Intake & Output 06/19/19 06/19/19 06/20/19 06:59 18:59 06:59 Intake Total 1240 292.168 10.833 Output Total 1 Balance 1239 292.168 10.833 Weight 116 kg Intake: Intake, IV Titration 1240 42.168 10.833 Amount Amino Acid 4.25%-D10w+ 1240 Lytes*E* 1,000 ml @ 83 mls/hr IV .BY DURATION [facility] Rx#:[id number] Insulin Regular 100 unit 42.168 10.833 In Sodium Chloride 0.9% 100 ml @ Titrate IV .Q0M [facility] Rx#:[id number] Oral 250 Output: Urine 1 Other: Voiding Method Toilet Toilet Incontinent - Labs CBC & Chem 7: 06/16/19 06:31 06/19/19 06:36 Labs: Abnormal Lab Results - Last 24 Hours (Table) 06/19/19 06/19/19 06/19/19 Range/Units 06:31 06:36 11:01 Sodium 135 L (137-145) mmol/L BUN 20 H (7-17) mg/dL Glucose 347 H (74-99) mg/dL POC Glucose (mg/dL) 332 H 300 H (75-99) mg/dL 06/19/19 06/19/19 06/19/19 Range/Units 14:15 15:55 16:58 Sodium (137-145) mmol/L BUN (7-17) mg/dL Glucose (74-99) mg/dL POC Glucose (mg/dL) 348 H 305 H 188 H (75-99) mg/dL 06/19/19 06/19/19 06/19/19 Range/Units 18:11 20:18 22:22 Sodium (137-145) mmol/L BUN (7-17) mg/dL Glucose (74-99) mg/dL POC Glucose (mg/dL) 101 H 188 H 230 H (75-99) mg/dL Assessment and Plan (1) High risk for readmission Current Visit: Yes Status: Acute Code(s): Z91.89 - OTH PERSONAL RISK FACTORS, NOT ELSEWHERE CLASSIFIED SNOMED Code(s): 845226719 (2) S/P laparoscopic sleeve gastrectomy Current Visit: Yes Status: Acute Code(s): Z98.84 - BARIATRIC SURGERY STATUS SNOMED Code(s): 195631562 (3) Intractable nausea and vomiting Current Visit: Yes Status: Acute Code(s): R11.2 - NAUSEA WITH VOMITING, UNSPECIFIED SNOMED Code(s): 686107902 (4) Diabetes type 2, uncontrolled Current Visit: Yes Status: Acute Code(s): E11.65 - TYPE 2 DIABETES MELLITUS WITH HYPERGLYCEMIA SNOMED Code(s): 924175290 (5) Hypothyroidism Current Visit: Yes Status: Acute Code(s): E03.9 - HYPOTHYROIDISM, UNSPECIFIED SNOMED Code(s): 70656572 (6) Chronic depressive disorder Current Visit: Yes Status: Acute Code(s): F32.9 - MAJOR DEPRESSIVE DISORDER, SINGLE EPISODE, UNSPECIFIED SNOMED Code(s): 802243136 (7) Obstructive sleep apnea Current Visit: Yes Status: Acute Code(s): G47.33 - OBSTRUCTIVE SLEEP APNEA (ADULT) (PEDIATRIC) SNOMED Code(s): 29082681 (8) Body mass index (BMI) 40.0-44.9, adult Current Visit: Yes Status: Acute Code(s): Z68.41 - BODY MASS INDEX (BMI) 40.0-44.9, ADULT SNOMED Code(s): 746215295 (9) Dysphagia Current Visit: Yes Status: Acute Code(s): R13.10 - DYSPHAGIA, UNSPECIFIED SNOMED Code(s): 03239919
[2019-06-19] MEDS ORDERED: INSULIN REGULAR BOLUS (FROM DRIP BAG) IV ONE (14:15)
[2019-06-19 14:27] LABS: Glucose,Whole Blood 348 mg/dL (75-99)
[2019-06-19] MEDS: INSULIN REGULAR 100 UNIT in SODIUM CHLORIDE 0.9% 100 ML IV SCH (15:29)
[2019-06-19 16:08] LABS: Glucose,Whole Blood 305 mg/dL (75-99)
[2019-06-19 17:09] LABS: Glucose,Whole Blood 188 mg/dL (75-99)
[2019-06-19 18:21] LABS: Glucose,Whole Blood 101 mg/dL (75-99)
[2019-06-19 20:30] LABS: Glucose,Whole Blood 188 mg/dL (75-99)
[2019-06-19 22:43] LABS: Glucose,Whole Blood 230 mg/dL (75-99)
--- NOTE | 2019-06-19 23:16 | PN ---
PROGRESS NOTE DATE OF SERVICE: 06/19/2019 This 68-year-old woman is admitted with intractable nausea and vomiting and had possible gastric outlet obstruction. The patient started on Decadron also. Blood sugars are significantly elevated. Patient also had multiple electrolytes imbalance. The patient being closely monitored. Insulin drip was initiated. Patient is on dexamethasone 4 mg IV q.6h. PAST MEDICAL HISTORY: Past medical history reviewed. REVIEW OF SYSTEMS: Cardiovascular system: No angina or palpitations. RESPIRATORY: As mentioned earlier. GI: As mentioned earlier. : No dysuria. CENTRAL NERVOUS SYSTEM: No focal deficits. CURRENT MEDICATIONS: Reviewed and include: 1. Dexamethasone 4 mg IV q.8h. 2. TPN. 3. Lipids. 4. Prozac. 5. Heparin. 6. NovoLog scale. 7. Synthroid. 8. Zestril. 9. Loratadine. 10.Claritin-D. 11.Magnesium oxide. 12.Narcan. 13.Protonix. 14.Mylicon drops. PHYSICAL EXAM: Patient is alert, oriented x3. Pulse is 63. Blood pressure 151/94, respiration 18, temperature 99 degrees, pulse ox 98% on room air. HEENT: Conjunctivae normal. NECK: No JVD. CARDIOVASCULAR: S1, S2 muffled. RESPIRATIONS: Breath sounds diminished in the bases. Bilateral scattered rhonchi and crackles. ABDOMEN: Soft, otherwise nontender. No mass palpable. Status post recent surgery. LEGS no edema. No swelling. CENTRAL NERVOUS SYSTEM: No focal deficits. LABS: At this time shows glucose of 305 and 101. CBC within normal limits. Sodium 135. ASSESSMENT: 1. Intractable nausea and vomiting with possible acute gastric outlet obstruction. 2. Recent laparoscopic gastric sleeve surgery. 3. Diabetes mellitus type 2 uncontrolled on insulin drip. 4. Increased AST/ALT. 5. Hypertension. 6. Diabetes type 2 with hyperglycemia. 7. History of hyperlipidemia. 8. History of sleep apnea. 9. History of nonobstructive right renal calculus. 10.History hypothyroidism. 11.History of lupus. 12.History of bariatric surgery. 13.History of degenerative joint disease. 14.History of breast reduction. 15.History ORIF of the right ankle. 16.History of depression. 17.Obesity with body mass index of 43.6. 18.FULL CODE. RECOMMENDATIONS AND DISCUSSION: In this 68-year-old woman who presented with multiple complex medical issues, we will monitor the patient closely, continue the current medications, management and symptomatic treatment. Otherwise, at this time, I recommend to continue with proton pump inhibitors. Cut down the IV fluids. Otherwise monitor fluid and electrolytes balance very closely. TPN. Continue with IV steroids, proton pump inhibitors. DVT prophylaxis. Closely follow with surgery. Guarded prognosis. Further recommendations to follow. MMGRAEMEL / IJN: [id number] /
[2019-06-20 00:29] LABS: Glucose,Whole Blood 206 mg/dL (75-99)
[2019-06-20 02:43] LABS: Glucose,Whole Blood 186 mg/dL (75-99)
[2019-06-20] MEDS: DEXAMETHASONE SOD PHOSPHATE 4 MG/ML 1 ML VIAL IV SCH ×4 (03:14→21:18)
[2019-06-20 04:28] LABS: Glucose,Whole Blood 245 mg/dL (75-99)
[2019-06-20 05:28] LABS: Hemoglobin A1C 8.2 % (4.0-6.0)
[2019-06-20] MEDS: LEVOTHYROXINE 125 MCG TAB PO SCH (06:14)
[2019-06-20 06:30] LABS: Glucose,Whole Blood 272 mg/dL (75-99)
[2019-06-20] MEDS: INSULIN REGULAR 100 UNIT in SODIUM CHLORIDE 0.9% 100 ML IV SCH (08:22)
[2019-06-20 08:25] LABS: Glucose,Whole Blood 264 mg/dL (75-99)
[2019-06-20] MEDS: INSULIN ASPART (NovoLOG) 100 UNIT/ML VIAL SQ SCH ×3 (08:46→18:25)
[2019-06-20 10:27] LABS: Glucose,Whole Blood 310 mg/dL (75-99)
[2019-06-20] MEDS: FLUoxetine HCL 20 MG CAP PO SCH (10:30)
[2019-06-20] MEDS: LORATADINE-PSEUDOEPH 5-120 MG 1 EACH TAB.ER.12H PO SCH ×2 (10:30→21:18)
[2019-06-20] MEDS: LISINOPRIL 20 MG TAB PO SCH (10:30)
[2019-06-20] MEDS: PANTOPRAZOLE 40 MG/10 ML VIAL IVP SCH ×2 (10:33→21:21)
[2019-06-20] MEDS: HEPARIN SODIUM,PORCINE 5,000 UNIT/ML 1 ML VIAL SQ SCH ×2 (10:33→21:19)
[2019-06-20] MEDS: SIMETHICONE 40 MG/0.6 ML DROPS 2,000 MG/30 ML BOTTLE PO SCH ×4 (10:34→21:27)
--- NOTE | 2019-06-20 11:18 | P.PN ---
<Alexandra Ramires A - Last Filed: 06/20/19 11:13> Subjective Progress Note Date: 06/20/19 CHIEF COMPLAINT: nausea, vomiting HISTORY OF PRESENT ILLNESS: Patient examined at the bedside. Patient was placed on a pureed diet yesterday per Dr. Pelletier. Patient states she was unable to tolerate dinner last night. She has not ate breakfast yet this morning. Patient reports no difference in tolerating liquids or pureed diet and is requesting to stay on pureed diet. She denies feeling nauseous. Passing flatus. She reports having bowel movements. Vital signs stable. She is afebrile. PHYSICAL EXAM: VITAL SIGNS: Reviewed. GENERAL: Well-developed in no acute distress. HEENT: No sclera icterus. Extraocular movements grossly intact. Moist buccal mucosa. Head is atraumatic, normocephalic. Hears conversational speech. No nasal drainage. NECK: Supple without lymphadenopathy. CHEST: Non-labored respirations and equal bilateral excursions. CARDIOVASCULAR: Regular rate with regular rhythm. Palpable 2+ radial pulses. ABDOMEN: Soft. Nondistended. Nontender. Incisions clean dry intact. MUSCULOSKELETAL: No clubbing, cyanosis or edema. NEUROLOGIC: No focal or lateralizing signs. Cranial nerves II through XII grossly intact. PSYCH: Appropriate affect. Alert and oriented to person, place and time. SKIN: Well perfused. Good skin turgor. ASSESSMENT: 1. Gastric outlet obstruction 2. Status post sleeve gastrectomy 3. Diabetes mellitus type II 4. Intractable nausea and vomiting 5. Questionable Pre-existing esophageal dysphagia prior to surgery 6. Hyperglycemia 7. Possible medical noncompliance, patient apparently not following medical directions at home per patients friend PLAN: Continue diet as tolerated. Will continue with pureed diet per patient request Continue PPN. Continue Decadron. Diabetes management per internal medicine. Currently on an insulin drip. Continue supportive management Patient will be re-evaluated tomorrow by Dr. Carpio Nurse practitioner note has been reviewed by physician. Signing provider agrees with the documented findings, assessment, and plan of care. Objective - Vital Signs Vital signs: Vital Signs Temp 98.1 F 06/20/19 07:00 Pulse 62 06/20/19 07:00 Resp 15 06/20/19 07:00 BP 133/80 06/20/19 07:00 Pulse Ox 99 06/20/19 07:00 Intake & Output 06/19/19 06/20/19 06/20/19 18:59 06:59 18:59 Intake Total 292.168 58.832 21.667 Balance 292.168 58.832 21.667 Weight 116 kg Intake: Intake, IV Titration 42.168 58.832 21.667 Amount Insulin Regular 100 unit 42.168 58.832 21.667 In Sodium Chloride 0.9% 100 ml @ Titrate IV .Q0M [facility] Rx#:[id number] Oral 250 Other: Voiding Method Toilet Incontinent - Labs CBC & Chem 7: 06/16/19 06:31 06/19/19 06:36 Labs: Abnormal Lab Results - Last 24 Hours (Table) 06/19/19 06/19/19 06/19/19 Range/Units 11:01 14:15 15:55 POC Glucose (mg/dL) 300 H 348 H 305 H (75-99) mg/dL Hemoglobin A1c (4.0-6.0) % 06/19/19 06/19/19 06/19/19 Range/Units 16:58 18:11 20:18 POC Glucose (mg/dL) 188 H 101 H 188 H (75-99) mg/dL Hemoglobin A1c (4.0-6.0) % 06/19/19 06/19/19 06/20/19 Range/Units 20:34 22:22 00:18 POC Glucose (mg/dL) 230 H 206 H (75-99) mg/dL Hemoglobin A1c 8.2 H (4.0-6.0) % 06/20/19 06/20/19 06/20/19 Range/Units 02:22 04:17 06:18 POC Glucose (mg/dL) 186 H 245 H 272 H (75-99) mg/dL Hemoglobin A1c (4.0-6.0) % 06/20/19 06/20/19 Range/Units 08:12 10:16 POC Glucose (mg/dL) 264 H 310 H (75-99) mg/dL Hemoglobin A1c (4.0-6.0) % <Ely Pelletier N - Last Filed: 06/21/19 08:29> Subjective Despite multimodality treatment including Decadron, Reglan, change of diet, patient still reports emesis. Patient reports "I get sick by the smell of liquids." She was unable to tolerate textured foods per her request. Additionally, hemoglobin A1c increased confirming patient's noncompliance to perioperative diet. Patient has history of poor compliance. May have element of psychological component for emesis. Patient to be evaluated by Dr. Carpio tomorrow Objective - Vital Signs Vital signs: Vital Signs Temp 97.7 F 06/21/19 00:17 Pulse 51 L 06/21/19 00:17 Resp 15 06/21/19 00:17 BP 120/77 06/21/19 00:17 Pulse Ox 93 L 06/21/19 00:17 Intake & Output 06/20/19 06/21/19 06/21/19 18:59 06:59 18:59 Intake Total 71.384 76.249 9.6 Balance 71.384 76.249 9.6 Intake: Intake, IV Titration 71.384 76.249 9.6 Amount Insulin Regular 100 unit 71.384 76.249 9.6 In Sodium Chloride 0.9% 100 ml @ Titrate IV .Q0M [facility] Rx#:[id number] Other: Voiding Method Toilet - Labs CBC & Chem 7: 06/21/19 05:52 06/21/19 05:52 Labs: Abnormal Lab Results - Last 24 Hours (Table) 06/20/19 06/20/19 06/20/19 Range/Units 06:46 10:16 11:22 WBC (3.8-10.6) k/uL Neutrophils # (1.3-7.7) k/uL Lymphocytes # (1.0-4.8) k/uL Sodium 134 L (137-145) mmol/L Chloride 97 L (98-107) mmol/L BUN 23 H (7-17) mg/dL Glucose 278 H (74-99) mg/dL POC Glucose (mg/dL) 310 H 204 H (75-99) mg/dL 06/20/19 06/20/19 06/20/19 Range/Units 12:18 14:14 16:05 WBC (3.8-10.6) k/uL Neutrophils # (1.3-7.7) k/uL Lymphocytes # (1.0-4.8) k/uL Sodium (137-145) mmol/L Chloride (98-107) mmol/L BUN (7-17) mg/dL Glucose (74-99) mg/dL POC Glucose (mg/dL) 131 H 129 H 235 H (75-99) mg/dL 06/20/19 06/20/19 06/20/19 Range/Units 18:12 20:14 22:17 WBC (3.8-10.6) k/uL Neutrophils # (1.3-7.7) k/uL Lymphocytes # (1.0-4.8) k/uL Sodium (137-145) mmol/L Chloride (98-107) mmol/L BUN (7-17) mg/dL Glucose (74-99) mg/dL POC Glucose (mg/dL) 248 H 241 H 172 H (75-99) mg/dL 06/21/19 06/21/19 06/21/19 Range/Units 00:16 02:21 04:20 WBC (3.8-10.6) k/uL Neutrophils # (1.3-7.7) k/uL Lymphocytes # (1.0-4.8) k/uL Sodium (137-145) mmol/L Chloride (98-107) mmol/L BUN (7-17) mg/dL Glucose (74-99) mg/dL POC Glucose (mg/dL) 210 H 265 H 235 H (75-99) mg/dL 06/21/19 06/21/19 06/21/19 Range/Units 05:52 05:52 06:10 WBC 12.0 H (3.8-10.6) k/uL Neutrophils # 10.7 H (1.3-7.7) k/uL Lymphocytes # 0.7 L (1.0-4.8) k/uL Sodium 134 L (137-145) mmol/L Chloride 97 L (98-107) mmol/L BUN 24 H (7-17) mg/dL Glucose 222 H (74-99) mg/dL POC Glucose (mg/dL) 221 H (75-99) mg/dL Assessment and Plan (1) High risk for readmission Current Visit: Yes Status: Acute Code(s): Z91.89 - OTH PERSONAL RISK FACTORS, NOT ELSEWHERE CLASSIFIED SNOMED Code(s): 715209231 (2) S/P laparoscopic sleeve gastrectomy Current Visit: Yes Status: Acute Code(s): Z98.84 - BARIATRIC SURGERY STATUS SNOMED Code(s): 596263295 (3) Intractable nausea and vomiting Current Visit: Yes Status: Acute Code(s): R11.2 - NAUSEA WITH VOMITING, UNSPECIFIED SNOMED Code(s): 335318861 (4) Diabetes type 2, uncontrolled Current Visit: Yes Status: Acute Code(s): E11.65 - TYPE 2 DIABETES MELLITUS WITH HYPERGLYCEMIA SNOMED Code(s): 953390150 (5) Hypothyroidism Current Visit: Yes Status: Acute Code(s): E03.9 - HYPOTHYROIDISM, UNSPECIFIED SNOMED Code(s): 98685553 (6) Chronic depressive disorder Current Visit: Yes Status: Acute Code(s): F32.9 - MAJOR DEPRESSIVE DISORDER, SINGLE EPISODE, UNSPECIFIED SNOMED Code(s): 598068009 (7) Obstructive sleep apnea Current Visit: Yes Status: Acute Code(s): G47.33 - OBSTRUCTIVE SLEEP APNEA (ADULT) (PEDIATRIC) SNOMED Code(s): 88847337 (8) Body mass index (BMI) 40.0-44.9, adult Current Visit: Yes Status: Acute Code(s): Z68.41 - BODY MASS INDEX (BMI) 40.0-44.9, ADULT SNOMED Code(s): 732654229 (9) Dysphagia Current Visit: Yes Status: Acute Code(s): R13.10 - DYSPHAGIA, UNSPECIFIED SNOMED Code(s): 59189408
[2019-06-20 11:34] LABS: Glucose,Whole Blood 204 mg/dL (75-99)
[2019-06-20 12:29] LABS: Glucose,Whole Blood 131 mg/dL (75-99)
[2019-06-20] MEDS: FAT EMULSION 20% 250 ML IV SCH (12:36)
[2019-06-20 13:46] LABS: African American GFR (CKD) >90 (>60 ml/min/1.73 sqM); Anion Gap 10 mmol/L; Blood Urea Nitrogen 23 mg/dL (7-17); Calcium 9.3 mg/dL (8.4-10.2); Carbon Dioxide 27 mmol/L (22-30); Chloride 97 mmol/L (98-107); Glucose 278 mg/dL (74-99); Non-African American GFR(CKD) 85 (>60 ml/min/1.73 sqM); Phosphorus 3.5 mg/dL (2.5-4.5); Potassium 4.4 mmol/L (3.5-5.1); Sodium 134 mmol/L (137-145)
[2019-06-20 14:25] LABS: Glucose,Whole Blood 129 mg/dL (75-99)
[2019-06-20] MEDS: SCOPOLAMINE 1.5MG/72HR PATCH TRANSDERM SCH (15:27)
[2019-06-20 16:17] LABS: Glucose,Whole Blood 235 mg/dL (75-99)
[2019-06-20 18:23] LABS: Glucose,Whole Blood 248 mg/dL (75-99)
--- NOTE | 2019-06-20 20:25 | PN ---
PROGRESS NOTE DATE OF SERVICE: 06/20/2019 This 68-year-old woman who was admitted with intractable nausea and vomiting with possible acute gastric outlet obstruction, being closely monitored. The surgery is following the patient closely. The patient is on insulin drip. Sugars still elevated at 129 and 235. The patient is on empiric Decadron also. Evaluation by Dr. Carpio is pending. PAST MEDICAL HISTORY: Reviewed. REVIEW OF SYSTEMS: Cardiovascular: As mentioned earlier. RESPIRATORY: As mentioned earlier. GASTROINTESTINAL: As mentioned earlier. : No dysuria or retention. CENTRAL NERVOUS SYSTEM: No numbness or weakness. CURRENT MEDICATIONS: Reviewed and include: 1. Decadron 4 mg IV q.8h. 2. Lipitor. 3. Prozac. 4. Heparin 5000 units subcu b.i.d. 5. NovoLog scale. 6. Synthroid 125 mcg p.o. daily. 7. Zestril 20 mg p.o. daily. 8. Losartan. 9. Magnesium oxide. 10.Protonix 40 IV b.i.d. 11.PPI. 12.Scopolamine. 13.Simethicone. PHYSICAL EXAMINATION: The patient is alert, oriented x3. The pulse is 65. Blood pressure 108/73, respiration 16, temperature 98.4, pulse ox 98% on room air. HEENT is conjunctivae normal. NECK: No JVD. VITAL SIGNS: S1, S2 muffled. RESPIRATORY: Breath sounds diminished in the bases. A few scattered rhonchi and crackles. Abdomen is soft, obese, nontender. No mass palpable. LEGS are no edema. No swelling. CENTRAL NERVOUS SYSTEM: No focal deficits. LAB STUDIES: WBC 9.2, hemoglobin is 13.2. Sodium is 134. Glucose noted. ASSESSMENT: 1. Intractable nausea, vomiting with possible acute gastric outlet obstruction. 2. Recent laparoscopic gastric sleeve surgery. 3. Diabetes mellitus type 2 uncontrolled with hyperglycemia on insulin drip. 4. Increased AST/ALT. 5. Hypertension. 6. Diabetes mellitus type 2 with hyperglycemia. 7. History of hyperlipidemia. 8. History of sleep apnea. 9. History of nonobstructive right renal calculus. 10.History of hypothyroidism. 11.History of lupus. 12.History of bariatric surgery. 13.History of degenerative joint disease. 14.History of breast reduction. 15.History of ORIF of the right ankle. 16.History of depression. 17.Obesity with body mass index 43.6. 18.FULL CODE. Recommend to continue current medications, management and symptomatic treatment. Otherwise, at this time I recommend to continue with empiric Decadron per surgery. Otherwise, blood sugars closely. PPN. Monitor electrolytes closely. Monitor CBC. Guarded prognosis because of multiple complex medical issues. Further recommendations to follow. MMODL / IJN: [id number] /
[2019-06-20 20:26] LABS: Glucose,Whole Blood 241 mg/dL (75-99)
[2019-06-20 22:30] LABS: Glucose,Whole Blood 172 mg/dL (75-99)
[2019-06-21 00:40] LABS: Glucose,Whole Blood 210 mg/dL (75-99)
[2019-06-21] MEDS: INSULIN REGULAR 100 UNIT in SODIUM CHLORIDE 0.9% 100 ML IV SCH ×3 (01:06→23:32)
[2019-06-21 02:33] LABS: Glucose,Whole Blood 265 mg/dL (75-99)
[2019-06-21] MEDS: DEXAMETHASONE SOD PHOSPHATE 4 MG/ML 1 ML VIAL IV SCH ×4 (02:57→20:14)
[2019-06-21 04:32] LABS: Glucose,Whole Blood 235 mg/dL (75-99)
[2019-06-21] MEDS: LEVOTHYROXINE 125 MCG TAB PO SCH (05:25)
[2019-06-21 06:22] LABS: Glucose,Whole Blood 221 mg/dL (75-99)
[2019-06-21 06:27] LABS: Basophils % (A) 0 %; Eosinophils % (A) 0 %; HCT 44.3 % (34.0-46.0); Lymphocytes # (A) 0.7 k/uL (1.0-4.8); Lymphocytes % (A) 6 %; MCH 28.8 pg (25.0-35.0); MCHC 31.6 g/dL (31.0-37.0); MCV 91.2 fL (80.0-100.0); Mean Platelet Volume 8.2; Monocytes # (A) 0.6 k/uL (0-1.0); Monocytes % (A) 5 %; Neutrophils # (A) 10.7 k/uL (1.3-7.7); Neutrophils % (A) 89 %; Platelet Count 210 k/uL (150-450); RBC 4.86 m/uL (3.80-5.40); RDW 12.8 % (11.5-15.5)
[2019-06-21 06:40] LABS: Calcium 9.1 mg/dL (8.4-10.2); Magnesium 1.9 mg/dL (1.6-2.3); Phosphorus 4.1 mg/dL (2.5-4.5); Potassium 4.3 mmol/L (3.5-5.1)
[2019-06-21] MEDS: INSULIN ASPART (NovoLOG) 100 UNIT/ML VIAL SQ SCH ×3 (08:22→17:56)
[2019-06-21 08:32] LABS: Glucose,Whole Blood 217 mg/dL (75-99)
[2019-06-21] MEDS: HEPARIN SODIUM,PORCINE 5,000 UNIT/ML 1 ML VIAL SQ SCH ×2 (09:56→20:14)
[2019-06-21] MEDS: PANTOPRAZOLE 40 MG/10 ML VIAL IVP SCH ×2 (09:56→20:14)
[2019-06-21] MEDS: FLUoxetine HCL 20 MG CAP PO SCH (09:56)
[2019-06-21] MEDS: LORATADINE-PSEUDOEPH 5-120 MG 1 EACH TAB.ER.12H PO SCH ×2 (09:56→20:15)
[2019-06-21] MEDS: LISINOPRIL 20 MG TAB PO SCH (09:56)
[2019-06-21] MEDS: SIMETHICONE 40 MG/0.6 ML DROPS 2,000 MG/30 ML BOTTLE PO SCH ×4 (10:05→20:14)
[2019-06-21 10:21] LABS: Glucose,Whole Blood 253 mg/dL (75-99)
--- NOTE | 2019-06-21 11:05 | P.PN ---
Progress Note - Text Progress Note Date: 06/21/19 The patient has complaints of nausea. She has tolerated some liquid diet. On exam her vital signs are stable. Her abdomen soft. Recommendation continue sips of clear liquids. I discussed with patient that she is only 2 weeks postoperative and I feel that doing a EGD would be risky due to Patient's possible staple line disruption. The patient was maintained on TPN and IV fluid. We will continue supportive care.
[2019-06-21 12:34] LABS: Glucose,Whole Blood 298 mg/dL (75-99)
[2019-06-21 14:56] LABS: Glucose,Whole Blood 236 mg/dL (75-99)
[2019-06-21 17:21] LABS: Glucose,Whole Blood 273 mg/dL (75-99)
[2019-06-21 19:17] LABS: Glucose,Whole Blood 240 mg/dL (75-99)
[2019-06-21 21:17] LABS: Glucose,Whole Blood 228 mg/dL (75-99)
--- NOTE | 2019-06-21 21:52 | PN ---
PROGRESS NOTE DATE OF SERVICE: 06/21/2019 This 62-year-old woman was admitted after laparoscopic gastric surgery, has intractable vomiting. At this time the patient is on TPN. Dr. Carpio is following the patient closely. Dr. Carpio thinks EGD will be risky and continue with supportive care. No chest pain. No palpitation. No fever. EXAM: Alert and oriented x3. Pulse 60, blood pressure 120/83, respirations 16, temperature 97.8, pulse ox 98% on room air. HEENT: Conjunctivae normal. Oral mucosa moist. NECK: No jugular venous distention. No lymph node enlargement. CARDIOVASCULAR: S1, S2. RESPIRATORY: Diminished breath sounds at the bases. Scattered rhonchi and crackles. ABDOMEN: Soft, nontender. LEGS: No edema, no swelling. NERVOUS SYSTEM: No focal deficits. LABS: WBC 12, hemoglobin 8.2, sodium 134. Accu-Cheks noted. ASSESSMENT: 1. Intractable nausea and vomiting for evaluation. 2. Possible gastritis. 3. Recent laparoscopic gastric sleeve surgery. 4. Diabetes mellitus type 2 uncontrolled with hyperglycemia on insulin drip. 5. Increased AST, ALT. 6. Hypertension. 7. Diabetes mellitus type 2 with hyperglycemia. 8. History hyperlipidemia. 9. History of sleep apnea. 10.History of nonobstructive right renal calculus. 11.History of hypothyroidism. 12.History of lupus. 13.History of bariatric surgery. 14.History of degenerative joint disease. 15.History of breast reduction. 16.History of ORIF of the right ankle. 17.History of depression. 18.Obesity with body mass index 43.6. 19.FULL CODE. RECOMMENDATIONS AND DISCUSSION: Recommend to continue current medications, continue symptomatic treatment. Otherwise, at this time I would recommend continue with proton pump inhibitors. Closely follow with surgery. Monitor blood sugars closely. Further recommendations to follow. MMODL / IJN: [id number] /
[2019-06-21 23:13] LABS: Glucose,Whole Blood 284 mg/dL (75-99)
[2019-06-22 01:11] LABS: Glucose,Whole Blood 331 mg/dL (75-99)
[2019-06-22] MEDS: DEXAMETHASONE SOD PHOSPHATE 4 MG/ML 1 ML VIAL IV SCH ×4 (01:17→20:07)
[2019-06-22 03:13] LABS: Glucose,Whole Blood 240 mg/dL (75-99)
[2019-06-22 05:14] LABS: Glucose,Whole Blood 219 mg/dL (75-99)
[2019-06-22] MEDS: LEVOTHYROXINE 125 MCG TAB PO SCH (05:39)
[2019-06-22 06:53] LABS: Glucose,Whole Blood 249 mg/dL (75-99)
[2019-06-22] MEDS: INSULIN ASPART (NovoLOG) 100 UNIT/ML VIAL SQ SCH ×3 (07:10→17:02)
[2019-06-22 07:34] LABS: Basophils % (A) 0 %; Eosinophils % (A) 0 %; HCT 42.4 % (34.0-46.0); HGB 13.8 gm/dL (11.4-16.0); Lymphocytes # (A) 0.5 k/uL (1.0-4.8); Lymphocytes % (A) 4 %; MCH 29.9 pg (25.0-35.0); MCHC 32.5 g/dL (31.0-37.0); MCV 91.9 fL (80.0-100.0); Mean Platelet Volume 8.5; Monocytes # (A) 0.9 k/uL (0-1.0); Monocytes % (A) 6 %; Neutrophils # (A) 12.7 k/uL (1.3-7.7); Neutrophils % (A) 89 %; Platelet Count 229 k/uL (150-450); RBC 4.61 m/uL (3.80-5.40); RDW 12.8 % (11.5-15.5); WBC 14.3 k/uL (3.8-10.6)
[2019-06-22 07:45] LABS: African American GFR (CKD) >90 (>60 ml/min/1.73 sqM); Anion Gap 9 mmol/L; Blood Urea Nitrogen 26 mg/dL (7-17); Calcium 9.2 mg/dL (8.4-10.2); Carbon Dioxide 27 mmol/L (22-30); Chloride 98 mmol/L (98-107); Glucose 235 mg/dL (74-99); Non-African American GFR(CKD) 79 (>60 ml/min/1.73 sqM); Phosphorus 4.4 mg/dL (2.5-4.5); Potassium 4.6 mmol/L (3.5-5.1); Sodium 134 mmol/L (137-145)
[2019-06-22] MEDS: SIMETHICONE 40 MG/0.6 ML DROPS 2,000 MG/30 ML BOTTLE PO SCH ×4 (07:46→20:07)
[2019-06-22] MEDS: FLUoxetine HCL 20 MG CAP PO SCH (07:46)
[2019-06-22] MEDS: LORATADINE-PSEUDOEPH 5-120 MG 1 EACH TAB.ER.12H PO SCH ×2 (07:46→20:07)
[2019-06-22] MEDS: LISINOPRIL 20 MG TAB PO SCH (07:46)
[2019-06-22] MEDS: PANTOPRAZOLE 40 MG/10 ML VIAL IVP SCH ×2 (07:47→20:07)
[2019-06-22] MEDS: HEPARIN SODIUM,PORCINE 5,000 UNIT/ML 1 ML VIAL SQ SCH ×2 (07:47→20:07)
[2019-06-22] MEDS: INSULIN REGULAR 100 UNIT in SODIUM CHLORIDE 0.9% 100 ML IV SCH (08:55)
[2019-06-22 09:08] LABS: Glucose,Whole Blood 237 mg/dL (75-99)
--- NOTE | 2019-06-22 11:38 | P.PN ---
Progress Note - Text Progress Note Date: 06/22/19 The patient is sleeping in her bed. She denies any abdominal pain. She did tolerate some clear liquids yesterday. On exam her vital signs are stable. Her abdomen soft. Patient's white count slightly elevated this morning. She'll be started on IV antibiotic. I discussed patient there is significant risk with performing EGD at this point. She'll continue receive nutrition support via TPN.
[2019-06-22 11:54] LABS: Glucose,Whole Blood 213 mg/dL (75-99)
[2019-06-22] MEDS: PIPERACILLIN-TAZOBACTAM 3.375 GM in SODIUM CHLORIDE 0.9% 100 ML IVPB SCH ×2 (12:46→20:07)
[2019-06-22 13:31] LABS: Glucose,Whole Blood 200 mg/dL (75-99)
[2019-06-22 15:34] LABS: Glucose,Whole Blood 195 mg/dL (75-99)
[2019-06-22 16:58] LABS: Glucose,Whole Blood 201 mg/dL (75-99)
[2019-06-22 19:10] LABS: Glucose,Whole Blood 184 mg/dL (75-99)
--- NOTE | 2019-06-22 21:30 | PN ---
PROGRESS NOTE DATE OF SERVICE: 06/22/2019 This 68-year-old woman who was admitted with intractable nausea and vomiting, had possibly gastritis and Dr. Carpio is following the patient closely. EGD is not an option because of the recent surgery. Nutrition support with TPN is being continued. No chest pain. No palpitations. No fever. EXAM: Alert and oriented x3. Pulse 63, blood pressure 140/85, respiration 18, temperature 98 degrees, pulse ox 98% on room air. HEENT: Conjunctivae normal. Oral mucosa moist. NECK: No jugular venous distention. No lymph node enlargement. CARDIOVASCULAR: S1, S2. RESPIRATORY: Diminished breath sounds at the bases. No rhonchi, no crackles. ABDOMEN: Soft, nontender. LEGS: No edema, no swelling. NERVOUS SYSTEM: No focal deficits. LABS: WBC 14.3, sodium 134. Accu-Cheks noted. ASSESSMENT: 1. Intractable nausea and vomiting for evaluation. 2. Possible gastritis. 3. Recent laparoscopic gastric sleeve surgery. 4. Diabetes type 2, uncontrolled with hyperglycemia on insulin drip. 5. Increased AST, ALT. 6. Hypertension. 7. Hyperlipidemia. 8. History of sleep apnea. 9. History of nonobstructive right renal calculus. 10.Hypothyroidism. 11.History of lupus. 12.History of bariatric surgery. 13.History of degenerative joint disease. 14.History of breast reduction. 15.History of ORIF of the right ankle. 16.History of depression. 17.Obesity with body mass index 43.6. 18.FULL CODE. RECOMMENDATIONS AND DISCUSSION: I recommend to continue current medications, continue to monitor, continue symptomatic treatment. Otherwise, at this time closely follow with Surgery. As mentioned earlier EGD risk has been noted. Guarded prognosis because of multiple complex medical issues. Further recommendations to follow. MMODL / IJN: [id number] /
[2019-06-22 21:34] LABS: Glucose,Whole Blood 203 mg/dL (75-99)
[2019-06-22 23:07] LABS: Glucose,Whole Blood 211 mg/dL (75-99)
[2019-06-23 01:01] LABS: Glucose,Whole Blood 227 mg/dL (75-99)
[2019-06-23] MEDS: DEXAMETHASONE SOD PHOSPHATE 4 MG/ML 1 ML VIAL IV SCH ×4 (01:08→21:01)
[2019-06-23] MEDS: PIPERACILLIN-TAZOBACTAM 3.375 GM in SODIUM CHLORIDE 0.9% 100 ML IVPB SCH ×3 (03:04→18:00)
[2019-06-23 03:21] LABS: Glucose,Whole Blood 242 mg/dL (75-99)
[2019-06-23] MEDS: LEVOTHYROXINE 125 MCG TAB PO SCH (05:00)
[2019-06-23] MEDS: INSULIN REGULAR 100 UNIT in SODIUM CHLORIDE 0.9% 100 ML IV SCH (05:06)
[2019-06-23 05:09] LABS: Glucose,Whole Blood 211 mg/dL (75-99)
[2019-06-23 06:51] LABS: Glucose,Whole Blood 187 mg/dL (75-99)
[2019-06-23 07:39] LABS: Basophils % (A) 0 %; Eosinophils # (A) 0.1 k/uL (0-0.7); Eosinophils % (A) 1 %; HCT 44.3 % (34.0-46.0); HGB 14.3 gm/dL (11.4-16.0); Lymphocytes # (A) 0.6 k/uL (1.0-4.8); Lymphocytes % (A) 5 %; MCH 29.4 pg (25.0-35.0); MCHC 32.3 g/dL (31.0-37.0); MCV 90.9 fL (80.0-100.0); Mean Platelet Volume 8.2; Monocytes # (A) 0.5 k/uL (0-1.0); Monocytes % (A) 4 %; Neutrophils # (A) 10.8 k/uL (1.3-7.7); Neutrophils % (A) 90 %; Platelet Count 180 k/uL (150-450); RBC 4.87 m/uL (3.80-5.40); RDW 12.9 % (11.5-15.5)
[2019-06-23] MEDS: INSULIN ASPART (NovoLOG) 100 UNIT/ML VIAL SQ SCH ×3 (07:53→18:01)
[2019-06-23] MEDS: PANTOPRAZOLE 40 MG/10 ML VIAL IVP SCH ×2 (08:07→21:10)
[2019-06-23] MEDS: HEPARIN SODIUM,PORCINE 5,000 UNIT/ML 1 ML VIAL SQ SCH ×2 (08:07→21:10)
[2019-06-23] MEDS: LORATADINE-PSEUDOEPH 5-120 MG 1 EACH TAB.ER.12H PO SCH ×2 (08:08→22:14)
[2019-06-23] MEDS: FLUoxetine HCL 20 MG CAP PO SCH (08:08)
[2019-06-23] MEDS: LISINOPRIL 20 MG TAB PO SCH (08:08)
[2019-06-23] MEDS: SIMETHICONE 40 MG/0.6 ML DROPS 2,000 MG/30 ML BOTTLE PO SCH ×4 (08:08→21:10)
[2019-06-23 09:28] LABS: Magnesium 1.7 mg/dL (1.6-2.3); Phosphorus 4.3 mg/dL (2.5-4.5); Potassium 4.5 mmol/L (3.5-5.1)
[2019-06-23 09:35] LABS: Glucose,Whole Blood 248 mg/dL (75-99)
[2019-06-23 11:08] LABS: Glucose,Whole Blood 257 mg/dL (75-99)
[2019-06-23] MEDS: FAT EMULSION 20% 250 ML IV SCH (12:00)
--- NOTE | 2019-06-23 12:30 | P.PN ---
Subjective Progress Note Date: 06/23/19 CHIEF COMPLAINT: nausea, vomiting HISTORY OF PRESENT ILLNESS: Patient examined at the bedside. Patient continues to state that she is unable to tolerate any liquids. However, she has not attempted anything this morning at the time of my examination. No emesis today. She is on PPN. Vital signs stable. She is afebrile. WBC 12.0 today. PHYSICAL EXAM: VITAL SIGNS: Reviewed. GENERAL: Well-developed in no acute distress. CHEST: Non-labored respirations and equal bilateral excursions. CARDIOVASCULAR: Regular rate with regular rhythm. Palpable 2+ radial pulses. ABDOMEN: Soft. Nondistended. Nontender. Incisions clean dry intact. NEUROLOGIC: No focal or lateralizing signs. Cranial nerves II through XII grossly intact. SKIN: Well perfused. Good skin turgor. ASSESSMENT: 1. Gastric outlet obstruction 2. Status post sleeve gastrectomy 3. Diabetes mellitus type II 4. Intractable nausea and vomiting 5. Questionable pre-existing esophageal dysphagia prior to surgery 6. Hyperglycemia PLAN: Continue diet as tolerated Continue PPN Continue Decadron Diabetes management per internal medicine. Currently on an insulin drip. Continue supportive management Will place order for PICC line for outpatient TPN. Likely discharge tomorrow to ECF Nurse practitioner note has been reviewed by physician. Signing provider agrees with the documented findings, assessment, and plan of care. Objective - Vital Signs Vital signs: Vital Signs Temp 97.7 F 06/23/19 08:02 Pulse 52 L 06/23/19 08:02 Resp 16 06/23/19 08:02 BP 124/75 06/23/19 08:02 Pulse Ox 98 06/23/19 08:02 Intake & Output 06/22/19 06/23/19 06/23/19 18:59 06:59 18:59 Intake Total 832.875 50.883 41.067 Balance 832.875 50.883 41.067 Intake: Intake, IV Titration 832.875 50.883 41.067 Amount Insulin Regular 100 unit 81.725 50.883 41.067 In Sodium Chloride 0.9% 100 ml @ Titrate IV .Q0M [facility] Rx#:[id number] Mvi, Adult No.4 with Vit 751.15 K 10 ml Trace (Conc-1Ml/ Dose) 1 ml Magnesium Sulfate gm 1 gm In Amino Acid 4.25%-D10w+Lytes*E* 1,000 ml @ 83 mls/hr IV . BY DURATION MARISA Rx#: [id number] Oral 0 Other: Voiding Method Toilet Toilet # Voids 1 - Labs CBC & Chem 7: 06/23/19 07:07 06/23/19 07:07 Labs: Abnormal Lab Results - Last 24 Hours (Table) 06/22/19 06/22/19 06/22/19 Range/Units 11:24 13:28 15:32 WBC (3.8-10.6) k/uL Neutrophils # (1.3-7.7) k/uL Lymphocytes # (1.0-4.8) k/uL Sodium (137-145) mmol/L BUN (7-17) mg/dL Glucose (74-99) mg/dL POC Glucose (mg/dL) 213 H 200 H 195 H (75-99) mg/dL 06/22/19 06/22/19 06/22/19 Range/Units 16:56 19:10 21:15 WBC (3.8-10.6) k/uL Neutrophils # (1.3-7.7) k/uL Lymphocytes # (1.0-4.8) k/uL Sodium (137-145) mmol/L BUN (7-17) mg/dL Glucose (74-99) mg/dL POC Glucose (mg/dL) 201 H 184 H 203 H (75-99) mg/dL 06/22/19 06/23/19 06/23/19 Range/Units 23:05 00:59 03:05 WBC (3.8-10.6) k/uL Neutrophils # (1.3-7.7) k/uL Lymphocytes # (1.0-4.8) k/uL Sodium (137-145) mmol/L BUN (7-17) mg/dL Glucose (74-99) mg/dL POC Glucose (mg/dL) 211 H 227 H 242 H (75-99) mg/dL 06/23/19 06/23/19 06/23/19 Range/Units 04:58 06:49 07:07 WBC 12.0 H (3.8-10.6) k/uL Neutrophils # 10.8 H (1.3-7.7) k/uL Lymphocytes # 0.6 L (1.0-4.8) k/uL Sodium (137-145) mmol/L BUN (7-17) mg/dL Glucose (74-99) mg/dL POC Glucose (mg/dL) 211 H 187 H (75-99) mg/dL 06/23/19 06/23/19 06/23/19 Range/Units 07:07 09:34 11:07 WBC (3.8-10.6) k/uL Neutrophils # (1.3-7.7) k/uL Lymphocytes # (1.0-4.8) k/uL Sodium 135 L (137-145) mmol/L BUN 24 H (7-17) mg/dL Glucose 201 H (74-99) mg/dL POC Glucose (mg/dL) 248 H 257 H (75-99) mg/dL
[2019-06-23 12:53] LABS: Zinc, Serum 80 ug/dL (60-130)
[2019-06-23] MEDS: INSULIN DETEMIR (LEVEMIR) 100 UNIT/ML SYR SQ SCH ×2 (13:39→21:47)
[2019-06-23] MEDS: MAGNESIUM SULFATE-D5W PMX 1 GM in DEXTROSE/WATER 1 100ML.BAG IVPB SCH ×2 (13:39→15:15)
[2019-06-23] MEDS: SCOPOLAMINE 1.5MG/72HR PATCH TRANSDERM SCH (13:48)
[2019-06-23] MEDS ORDERED: LIDOCAINE 1% INJ 10MG/ML (20 ML MDV) SQ ONE (14:43)
[2019-06-23 14:57] VITALS: BMI 39.9
--- NOTE | 2019-06-23 15:21 | IR ---
PICC LINE PLACEMENT: HISTORY: TPN PROCEDURE: Ultrasound and fluoroscopic guidance of PICC line placement. COMPLICATIONS: None ANESTHESIA: 1. 1% Lidocaine locally. FINDINGS/TECHNIQUE: The procedure was explained to the patient. The risks, complications, benefits and alternatives were discussed and any questions were answered. Informed consent was obtained. The patient was placed supine on the fluoroscopic table and prepped and draped in the usual sterile fash ion. Utilizing a 21 gauge needle and sonographic and fluoroscopic guidance, access in the left basi lic vein was achieved and there is placement of a 0.018 guidewire. The vein is patent. A 4-F sheath was placed over the guidewire. The guidewire and dilator were removed and a 4-F. PICC line was plac ed through the sheath with the tip at the level of the SVC. The sheath was removed, the catheter was flushed and sutured into position. The patient was stable throughout the procedure and remained sta ble upon discharge from the Department of Radiology. The vein puncture was patent under ultrasound. A ayala scale image was obtained to document patency of the vein punctured. All elements of the maximal barrier technique were utilized. FLUOROSCOPY TIME: 0.1 minutes and one image submitted IMPRESSION: Successful PICC line placement under ultrasound and fluoroscopic guidance.
[2019-06-23 17:43] LABS: Glucose,Whole Blood 341 mg/dL (75-99)
--- NOTE | 2019-06-23 18:57 | PN ---
PROGRESS NOTE DATE OF SERVICE: 06/23/2019 This 68-year-old woman was admitted with intractable nausea and vomiting, is also on TPN. The patient is too early to have an endoscopy at this current stage as per the surgery. Please refer to surgery notes for further information. Otherwise, the patient is also being planned to be sent to ECF with prolonged TPN and PICC line because of the continued symptomatology, continued nausea and vomiting. PAST MEDICAL HISTORY: Reviewed. REVIEW OF SYSTEMS: Cardiovascular: No angina or palpitations. Respiration: As mentioned earlier. GI as mentioned earlier. : No dysuria. CENTRAL NERVOUS SYSTEM: No numbness or weakness. CURRENT MEDICATIONS: Reviewed and include: 1. IV insulin drip. 2. Decadron 4 mg IV q.6 hours. 3. Prozac. 4. Heparin. 5. NovoLog. 6. Levemir. 7. Synthroid. 8. Zestril. 9. Narcan. 10.Protonix. 11.Zosyn. PHYSICAL EXAM: Patient is alert, oriented x3. Pulse 52. Blood pressure 124/74, respirations 16, temperature 97.7, pulse ox 98% on room air. HEENT: Conjunctivae normal. NECK: No JVD. CARDIOVASCULAR: S1, S2 muffled. RESPIRATIONS: Breath sounds diminished in the bases. A few scattered rhonchi and crackles. ABDOMEN: Soft, obese. LEGS are no edema. No swelling. LABS: WBC 12, hemoglobin 14.2, sodium 130, potassium 4.5. Accu-Cheks 245, 257. ASSESSMENT: 1. Intractable nausea and vomiting for evaluation. 2. Possible acute gastritis. 3. Recent laparoscopic gastric sleeve surgery. 4. Diabetes type 2, uncontrolled, with hyperglycemia on insulin drip. 5. Increased AST and ALT. 6. Hypertension. 7. Hyperlipidemia. 8. History of sleep apnea. 9. History of nonobstructing right renal calculus. 10.Hypothyroidism. 11.History of lupus. 12.History of bariatric surgery. 13.History of degenerative joint disease. 14.History of breast reduction. 15.History of ORIF of the right ankle. 16.History of depression. 17.Obesity with body mass index of 43.6. 18.FULL CODE. RECOMMENDATIONS AND DISCUSSION: In this 68-year-old woman who presented with multiple complex medical issues, we will monitor the patient closely, continue the current medications, management and symptomatic treatment. Otherwise, at this time, I recommend continue the TPN. I would recommend to stop the insulin drip and initiate Lantus 30 subcu b.i.d. with a drip and consider tapering or reducing the dose of Decadron. Continue with broad-spectrum IV antibiotics, Protonix and symptomatic treatment. Guarded prognosis because of multiple complex medical issues. Further recommendations to follow. MMODL / IJN: [id number] /
[2019-06-23 21:58] LABS: Glucose,Whole Blood 315 mg/dL (75-99)
[2019-06-24] MEDS: INSULIN ASPART (NovoLOG) 100 UNIT/ML VIAL SQ SCH ×3 (00:46→12:12)
[2019-06-24 00:53] LABS: Glucose,Whole Blood 362 mg/dL (75-99)
[2019-06-24] MEDS: DEXAMETHASONE SOD PHOSPHATE 4 MG/ML 1 ML VIAL IV SCH ×2 (02:32→07:56)
[2019-06-24] MEDS: PIPERACILLIN-TAZOBACTAM 3.375 GM in SODIUM CHLORIDE 0.9% 100 ML IVPB SCH ×2 (02:37→11:07)
[2019-06-24] MEDS: LEVOTHYROXINE 125 MCG TAB PO SCH (06:08)
[2019-06-24 06:14] LABS: Glucose,Whole Blood 294 mg/dL (75-99)
[2019-06-24] MEDS: PANTOPRAZOLE 40 MG/10 ML VIAL IVP SCH (07:55)
[2019-06-24] MEDS: HEPARIN SODIUM,PORCINE 5,000 UNIT/ML 1 ML VIAL SQ SCH (07:56)
[2019-06-24] MEDS: LISINOPRIL 20 MG TAB PO SCH (07:56)
[2019-06-24] MEDS: INSULIN DETEMIR (LEVEMIR) 100 UNIT/ML SYR SQ SCH (07:56)
[2019-06-24] MEDS: LORATADINE-PSEUDOEPH 5-120 MG 1 EACH TAB.ER.12H PO SCH (07:56)
[2019-06-24] MEDS: SIMETHICONE 40 MG/0.6 ML DROPS 2,000 MG/30 ML BOTTLE PO SCH ×2 (07:56→12:12)
[2019-06-24] MEDS: FLUoxetine HCL 20 MG CAP PO SCH (07:56)
[2019-06-24 08:06] LABS: Ionized Calcium 4.9 mg/dL (4.5-5.3)
[2019-06-24 08:26] LABS: African American GFR (CKD) >90 (>60 ml/min/1.73 sqM); Anion Gap 9 mmol/L; Blood Urea Nitrogen 23 mg/dL (7-17); Calcium 8.7 mg/dL (8.4-10.2); Carbon Dioxide 24 mmol/L (22-30); Chloride 100 mmol/L (98-107); Glucose 316 mg/dL (74-99); Non-African American GFR(CKD) 89 (>60 ml/min/1.73 sqM); Phosphorus 3.7 mg/dL (2.5-4.5); Potassium 4.7 mmol/L (3.5-5.1); Sodium 133 mmol/L (137-145); Triglycerides 89 mg/dL (<150)
[2019-06-24 11:20] LABS: Basophils % (A) 0 %; Eosinophils % (A) 0 %; HCT 43.6 % (34.0-46.0); HGB 14.1 gm/dL (11.4-16.0); Lymphocytes # (A) 0.4 k/uL (1.0-4.8); Lymphocytes % (A) 3 %; MCH 29.9 pg (25.0-35.0); MCHC 32.4 g/dL (31.0-37.0); MCV 92.4 fL (80.0-100.0); Mean Platelet Volume 8.4; Monocytes # (A) 0.6 k/uL (0-1.0); Monocytes % (A) 5 %; Neutrophils # (A) 10.7 k/uL (1.3-7.7); Neutrophils % (A) 91 %; Platelet Count 189 k/uL (150-450); RBC 4.72 m/uL (3.80-5.40); RDW 12.8 % (11.5-15.5); WBC 11.8 k/uL (3.8-10.6)
[2019-06-24 11:57] LABS: Glucose,Whole Blood 314 mg/dL (75-99)
--- NOTE | 2019-06-24 13:07 | P.DS ---
Providers Date of admission: 06/16/19 09:41 Expected date of discharge: 06/24/19 Attending physician: Hung Carpio Consults: 06/15/19 13:22 Consult Physician Routine Consulting Provider: Leonel Mason Consult Reason/Comments: Medical management Do you want consulting provider notified?: Yes Primary care physician: Stated None Hospital Course: 68-year-old female who is status post hypercapnic sleeve gastrectomy on 06/05/2019. Patient presented back to the hospital due to nausea and vomiting. Patient reports she has been unable to keep any fluids down. Patient was started on multiple medications including IV Decadron, Zofran, and Reglan. Patient underwent esophagram which did not reveal evidence of leak or significant obstruction. Despite all of this, patient is unable to keep adequate fluids down. She was started on PPN. Dr. Carpio discussed risks of performing EGD due to recent sleeve. Patient will be discharged to [facility] today. She is stable at the time of discharge. She is to remain on PPN and liquids as tolerated. She will be re-evaluated outpatient by Dr. Carpio with plans for EGD in the future. Please see EMR for further hospital course details. Discharge Diagnosis: 1. Gastric outlet obstruction 2. Status post sleeve gastrectomy 3. Diabetes mellitus type II 4. Intractable nausea and vomiting 5. Questionable Pre-existing esophageal dysphagia prior to surgery Nurse practitioner note has been reviewed by physician. Signing provider agrees with the documented findings, assessment, and plan of care. Patient Condition at Discharge: Stable Plan - Discharge Summary Discharge Rx Participant: Yes New Discharge Prescriptions: New Insulin Detemir (Levemir) [Levemir] 40 unit SQ BID syr Loratadine-Pseudoeph 5-120 mg [Claritin-D 12 Hour] 1 each PO Q12HR PRN tab.er.12h PRN Reason: Congestion Heparin Sodium,Porcine [Heparin Sodium] 5,000 unit SQ Q12HR vial Insulin Aspart [NovoLOG] 0 units SQ ACHS #1 ml Scopolamine 1.5MG/72Hr Patch [TransDerm Scop] 1 patch TRANSDERM Q72H patch Continue metFORMIN HCL 1,000 mg PO BID FLUoxetine HCL [PROzac] 40 mg PO DAILY FLUoxetine HCL 20 mg PO HS glipiZIDE [Glucotrol] 10 mg PO AC-BRKFST Levothyroxine Sodium [Synthroid] 125 mcg PO DAILY Atorvastatin [Lipitor] 20 mg PO HS sitaGLIPtin [Januvia] 100 mg PO DAILY Sucralfate [Carafate] 1 gm PO BID #500 ml Bisacodyl [Dulcolax] 5 mg PO DAILY PRN #10 tablet. PRN Reason: Constipation Simethicone 40 mg/0.6 ml Drops [Mylicon Drops] 40 mg PO PCHS PRN #30 ml PRN Reason: gas Omeprazole 40 mg PO DAILY #30 cap Ondansetron Odt [Zofran ODT] 4 mg PO Q8HR PRN #9 tab PRN Reason: Nausea Lisinopril 20 mg PO DAILY Discontinued Hydrocodone/Acetaminophen [[place] 5-325] 1 tab PO Q6HR PRN 3 Days #12 tab PRN Reason: Pain Discharge Medication List Atorvastatin [Lipitor] 20 mg PO HS 01/20/19 [History] FLUoxetine HCL 20 mg PO HS 01/20/19 [History] FLUoxetine HCL [PROzac] 40 mg PO DAILY 01/20/19 [History] Levothyroxine Sodium [Synthroid] 125 mcg PO DAILY 01/20/19 [History] glipiZIDE [Glucotrol] 10 mg PO AC-BRKFST 01/20/19 [History] metFORMIN HCL 1,000 mg PO BID 01/20/19 [History] sitaGLIPtin [Januvia] 100 mg PO DAILY 01/20/19 [History] Bisacodyl [Dulcolax] 5 mg PO DAILY PRN #10 tablet. 06/12/19 [Rx] Omeprazole 40 mg PO DAILY #30 cap 06/12/19 [Rx] Ondansetron Odt [Zofran ODT] 4 mg PO Q8HR PRN #9 tab 06/12/19 [Rx] Simethicone 40 mg/0.6 ml Drops [Mylicon Drops] 40 mg PO PCHS PRN #30 ml 06/12/19 [Rx] Sucralfate [Carafate] 1 gm PO BID #500 ml 06/12/19 [Rx] Lisinopril 20 mg PO DAILY 06/14/19 [History] Heparin Sodium,Porcine [Heparin Sodium] 5,000 unit SQ Q12HR vial 06/24/19 [Rx] Insulin Aspart [NovoLOG] 0 units SQ ACHS #1 ml 06/24/19 [Rx] Insulin Detemir (Levemir) [Levemir] 40 unit SQ BID syr 06/24/19 [Rx] Loratadine-Pseudoeph 5-120 mg [Claritin-D 12 Hour] 1 each PO Q12HR PRN tab.er.12h 06/24/19 [Rx] Scopolamine 1.5MG/72Hr Patch [TransDerm Scop] 1 patch TRANSDERM Q72H patch 06/24/19 [Rx] Follow up Appointment(s)/Referral(s): [facility], [NON-STAFF] - As Needed None,Stated [Primary Care Provider] - 1-2 days Bariatric [place], [place] [NON-STAFF] - 06/30/19 1:40 pm Ambulatory/Diagnostic Orders: Complete Blood Count w/diff [LAB.AMB] Location: None Selected Patient Instructions/Handouts: Sleep Apnea (DC), Hypothyroidism (DC), Obesity in Adolescents (GEN), Depression Management for Older Adults (ED) Activity/Diet/Wound Care/Special Instructions: TPN TO CONTINUE AT DISCHARGE AT [facility] ac achs and scale- dose of insulin to be adjusted out pt.
[2019-06-24 13:25] LABS: Vit B1(Thiamine) 102 ug/L (38-122)
--- NOTE | 2019-06-24 13:36 | PN ---
PROGRESS NOTE DATE OF SERVICE: 06/24/2019 This 68-year-old woman who was admitted with incessant nausea, vomiting after gastric sleeve surgery is on TPN. The patient is being closely monitored at this time. ECF rehab is being planned. Dr. Carpio is following the patient closely. The blood sugars have been elevated. The patient is on Lantus 30 units subcu b.i.d. I recommend the patient increase the Lantus to 40 b.i.d. There is a 10% dextrose in TPN which cannot be avoided according to the pharmacy. PAST MEDICAL HISTORY: Reviewed. REVIEW OF SYSTEMS: CARDIOVASCULAR SYSTEM: No angina. RESPIRATORY SYSTEM: As mentioned earlier. GI: As mentioned earlier. : No dysuria. NERVOUS SYSTEM: No numbness or weakness. CURRENT MEDICATIONS: Current medications are reviewed and include: 1. Lipids TPN. 2. Prozac 40 mg p.o. daily. 3. Heparin 5000 subcu b.i.d. 4. NovoLog scale. 5. Levemir 30 units subcu b.i.d. 6. Synthroid 125 mcg p.o. daily. 7. Zestril 20 mg p.o. daily. 8. Loratadine. 9. Narcan. 10.Protonix 40 mg IV b.i.d. 11.TPN. 12.Zosyn 3.375 IV q.8. 13.Scopolamine. PHYSICAL EXAM: Patient is alert, oriented x3. Pulse is 56, blood pressure 137/81, respirations 16, temp 97.6, pulse ox 98% on room air. HEENT: Conjunctivae normal. NECK: No jugular venous distention. CARDIOVASCULAR: S1, S2 muffled. RESPIRATORY: Breath sounds diminished at the bases. No rhonchi. No crackles. ABDOMEN: Soft, obese. Status post recent surgery. No tenderness. No guarding or rigidity. LEGS: No edema. No swelling. NERVOUS SYSTEM: No focal deficits. LAB STUDIES: WBC 11.8, hemoglobin 14.2. Glucose 316, 314. ASSESSMENT: 1. Intractable nausea and vomiting for evaluation. 2. Possible acute gastritis. 3. Recent laparoscopic gastric sleeve surgery. 4. Diabetes mellitus type 2 uncontrolled with hyperglycemia on insulin drip. 5. Increased AST and ALT. 6. Hypertension. 7. Hyperlipidemia. 8. History of sleep apnea. 9. History of nonobstructing right renal calculus. 10.Hypothyroidism. 11.History of lupus. 12.History of bariatric surgery. 13.History of degenerative joint disease. 14.History of breast reduction. 15.History of ORIF of the right ankle. 16.History of depression. 17.Obesity with body mass index of 43.6. 18.FULL CODE. RECOMMENDATION AND DISCUSSION: In this 68-year-old woman who presented with multiple complex medical issues, at this time I recommend to continue current medications, continue symptomatic treatment. I would follow the patient closely with Surgery and the patient is being arranged to go to [facility] in [place] with TPN because of the continuous symptoms. I would recommend the following medications from medical standpoint. Please refer to surgical notes and followup recommendation with Dr. Carpio for details. The discharge recommendation and discussion will be as follows: 1. Continue the TPN. 2. PICC line care. 3. Fluoxetine 20 mg at bedtime. 4. Hold Glucotrol, Januvia, and metformin at this time. Restart when the patient is p.o. 5. Lipitor 20 mg at bedtime. 6. Lisinopril 20 mg p.o. daily. 7. Prozac 40 mg p.o. daily. 8. Synthroid 125 mcg p.o. daily. 9. Carafate 1 gram p.o. b.i.d. 10.Loratadine as before b.i.d. p.r.n. 11.Dulcolax 5 mg daily p.r.n. 12.Heparin 5000 subcu b.i.d. until the patient is more ambulant. 13.Levemir 40 units subcu b.i.d. 14.Simethicone 40 mg p.c. at bedtime. 15.NovoLog Accu-Cheks a.c. and at bedtime and NovoLog scale 1 to 200, two units; 201 to 250, four units; 251 to 300, six units; 301 to 350, eight units; 351 to 400 ten units, more than 400 call. 16.Omeprazole 40 mg p.o. daily. 17.Scopolamine patch 1 patch in 72 hours. 18.Zofran 4 mg q.8 p.r.n. Once again, Dr. Alli Salter will be following the patient in the [facility] and follow up with Dr. Carpio and the rest of the recommendations as recommended. MMODL / IJN: [id number] /
[2019-06-24 16:15] VITALS: BP 139/84; PULSE 53; RESP 17; TEMP 97.5
== END 2019-06-24 16:10 | DRG 381 ==
LOC: EC 20:50 → 4SSUR 06-14 02:04 → OBSVTOIN 06-16 09:41
PROVIDERS: ADMIT Surgery; ATTEND Surgery
PROC: 3E0336Z Introduction of Nutritional Substance into Peripheral Vein, Percutaneous Approach (ICD-10-PCS; 2019-06-16)
PROC: 05HF33Z Insertion of Infusion Device into Left Cephalic Vein, Percutaneous Approach (ICD-10-PCS; principal; 2019-06-19 15:05)
PROC: 02HV33Z Insertion of Infusion Device into Superior Vena Cava, Percutaneous Approach (ICD-10-PCS; 2019-06-23)
DX: K31.1 Adult hypertrophic pyloric stenosis (principal); Z68.41 Body mass index [BMI] 40.0-44.9, adult; E66.01 Morbid (severe) obesity due to excess calories; R13.14 Dysphagia, pharyngoesophageal phase; E03.9 Hypothyroidism, unspecified; E11.65 Type 2 diabetes mellitus with hyperglycemia; N20.0 Calculus of kidney; I10 Essential (primary) hypertension; G47.33 Obstructive sleep apnea (adult) (pediatric); E78.5 Hyperlipidemia, unspecified; F32.9 Major depressive disorder, single episode, unspecified; M19.90 Unspecified osteoarthritis, unspecified site; R74.0 Nonspecific elevation of levels of transaminase and lactic acid dehydrogenase [LDH]; Z91.19 Patient's noncompliance with other medical treatment and regimen; Z79.890 Hormone replacement therapy; Z79.84 Long term (current) use of oral hypoglycemic drugs; Z79.899 Other long term (current) drug therapy; Z98.84 Bariatric surgery status; Z71.3 Dietary counseling and surveillance; Z87.891 Personal history of nicotine dependence; Z98.890 Other specified postprocedural states; Z87.2 Personal history of diseases of the skin and subcutaneous tissue; Z98.51 Tubal ligation status; Z98.42 Cataract extraction status, left eye; Z98.41 Cataract extraction status, right eye; Z80.9 Family history of malignant neoplasm, unspecified
CPT/HCPCS: 36410; 36415; 36573; 74177; 74210; 76937; 80048; 80053; 82330; 83036; 83690; 83735; 84100; 84425; 84478; 84630; 85025; 85027; 96374; 99285

== ENCOUNTER 2019-07-02 12:49 | Day surgery (SDC) | payer MEDICARE, OTHER ==
[2019-07-01 09:02] VITALS: BMI 39.6
[2019-07-02 13:08] VITALS: TEMP 97
[2019-07-02 13:20] LABS: Glucose,Whole Blood 196 mg/dL (75-99)
[2019-07-02] MEDS ORDERED: LIDOCAINE 1% 20 ML VIAL (10MG/ML) FOR IV START INTRADERMA ONE (13:21)
[2019-07-02] MEDS ORDERED: LACTATED RINGERS 1,000 ML IV ONE (13:21)
[2019-07-02] MEDS ORDERED: LIDOCAINE 1% INJ 10MG/ML (20 ML MDV) ONE (13:33)
[2019-07-02] MEDS ORDERED: PROPOFOL 10 MG/ML 20 ML VIAL IV ONE (13:33)
--- NOTE | 2019-07-02 13:36 | P.GSHP ---
History of Present Illness H&P Date: 07/02/19 Chief Complaint: Dysphagia This a 68-year-old female who had recent gastric sleeve surgery patient had problems persistent dysphagia. She presents today for EGD. Her most recent esophagram shows no evidence of obstruction of the gastric sleeve. Past Medical History Past Medical History: Diabetes Mellitus, Hyperlipidemia, Hypertension, Skin Disorder, Sleep Apnea/CPAP/BIPAP, Thyroid Disorder Additional Past Medical History / Comment(s): lupus, gets rash on face that comes and goes, doesn't use CPAP, diff swallowing, wt loss, "states she has vomiting" History of Any Multi-Drug Resistant Organisms: None Reported Past Surgical History: Bariatric Surgery, Breast Surgery, Orthopedic Surgery, Tubal Ligation Additional Past Surgical History / Comment(s): breast reduction, ORIF rt ankle, cyst removed from left breast, dex cataracts, eye surgery for scar tissue dex eyes after cataract surgery. Colonoscopy. EGD, gastric sleeve (May 2019), PICC line for TPN Past Anesthesia/Blood Transfusion Reactions: No Reported Reaction Smoking Status: Never smoker - Past Family History Mother Family Medical History: Cancer Father Family Medical History: Cancer Medications and Allergies Home Medications Medication Instructions Recorded Confirmed Type Atorvastatin [Lipitor] 20 mg PO HS 01/20/19 07/02/19 History FLUoxetine HCL 20 mg PO HS 01/20/19 07/02/19 History FLUoxetine HCL [PROzac] 40 mg PO DAILY 01/20/19 07/02/19 History metFORMIN HCL 1,000 mg PO BID 01/20/19 07/02/19 History Omeprazole 40 mg PO DAILY #30 cap 06/12/19 07/02/19 Rx Ondansetron Odt [Zofran ODT] 4 mg PO Q8HR PRN #9 tab 06/12/19 07/02/19 Rx Simethicone 40 mg/0.6 ml Drops 40 mg PO PCHS PRN #30 ml 06/12/19 07/02/19 Rx [Mylicon Drops] Sucralfate [Carafate] 1 gm PO BID #500 ml 06/12/19 07/02/19 Rx Loratadine-Pseudoeph 5-120 mg 1 each PO Q12HR PRN tab.er.12h 06/24/19 07/02/19 Rx [Claritin-D 12 Hour] Scopolamine 1.5MG/72Hr Patch 1 patch TRANSDERM Q72H patch 06/24/19 07/02/19 Rx [TransDerm Scop] Enoxaparin [Lovenox] 100 mg SQ HS 07/01/19 07/02/19 History INSULIN LISPRO (humaLOG) [humaLOG] 0 units SQ ACHS PRN 07/01/19 07/02/19 History Insulin Glargine,Hum.rec.anlog 20 unit SQ BID 07/01/19 07/02/19 History [Basaglar Kwikpen U-100] Levothyroxine Sodium [Synthroid] 150 mcg PO DAILY 07/01/19 07/02/19 History Linagliptin [Tradjenta] 5 mg PO DAILY 07/01/19 07/02/19 History Tpn 1 applicate IV MOWEFR 07/01/19 07/02/19 History Allergies Allergy/AdvReac Type Severity Reaction Status Date / Time No Known Allergies Allergy Verified 07/01/19 08:49 Surgical - Exam Vital Signs Temp Pulse Resp Pulse Ox 97.0 F L 72 18 92 L 07/02/19 13:05 07/02/19 13:05 07/02/19 13:05 07/02/19 13:05 - General well developed, well nourished, no distress - Eyes PERRL - ENT normal pinna - Neck no masses - Respiratory normal expansion - Cardiovascular Rhythm: regular - Abdomen Abdomen: soft, non tender Results - Labs Abnormal Lab Results - Last 24 Hours (Table) 07/02/19 Range/Units 13:19 POC Glucose (mg/dL) 196 H (75-99) mg/dL Assessment and Plan Assessment: Dysphagia. We'll perform EGD.
[2019-07-02 14:08] VITALS: RESP 16
[2019-07-02 14:21] VITALS: BP 116/84; PULSE 82
--- NOTE | 2019-07-02 17:34 | P.OP ---
Date of Procedure: 07/02/19 Preoperative Diagnosis: Dysphagia Postoperative Diagnosis: Dysphagia Procedure(s) Performed: EGD with balloon dilatation Anesthesia: MAC Surgeon: Hung Carpio Pathology: none sent Condition: stable Disposition: PACU Description of Procedure: The patient's placed on the endoscopy table in the lateral position. She received IV sedation. The gastro-placed oropharynx passed in the esophagus. The scope some placed in the stomach. The. Be evidence of narrowing of the proximal gastric sleeve. This point the scope was then placed into the gaseously then placed through the pylorus and then through into the first and second portion duodenum. This appeared normal. Scope was then brought back through the gastric sleeve there is no evidence of any inflammation or erosions. No significant tortuosity the sleeve at this point scope was brought back the level GE junction appears to be a mild stricture. The 20 mm balloon was held in position over the proximal gastric sleeve. This was then sequentially 3 times for 3 minutes. The balloon was then withdrawn. The scope could easily passed into the gastric sleeve portion of the stomach. This with the scope was withdrawn. Patient top she will was sent to recovery room stable condition.
== END 2019-07-02 14:45 | disposition home or self-care (01) ==
LOC: ORWHC2ENDO 12:49
PROVIDERS: ATTEND Surgery
DX: K95.89 Other complications of other bariatric procedure (principal); E11.9 Type 2 diabetes mellitus without complications; E78.5 Hyperlipidemia, unspecified; I10 Essential (primary) hypertension; L98.9 Disorder of the skin and subcutaneous tissue, unspecified; G47.33 Obstructive sleep apnea (adult) (pediatric); M32.9 Systemic lupus erythematosus, unspecified; E07.9 Disorder of thyroid, unspecified; K08.89 Other specified disorders of teeth and supporting structures; Z98.890 Other specified postprocedural states; Z98.51 Tubal ligation status; Z87.81 Personal history of (healed) traumatic fracture; Z98.42 Cataract extraction status, left eye; Z98.41 Cataract extraction status, right eye; Z79.899 Other long term (current) drug therapy; Z79.01 Long term (current) use of anticoagulants; Z79.4 Long term (current) use of insulin; Z79.890 Hormone replacement therapy; Z97.2 Presence of dental prosthetic device (complete) (partial); Z80.9 Family history of malignant neoplasm, unspecified
CPT/HCPCS: 43245; J2001; J2704; C1726

== ENCOUNTER 2019-07-07 07:28 | Day surgery (SDC) | payer MEDICARE, OTHER ==
[2019-07-04 12:12] VITALS: BMI 38.2
[2019-07-07 08:04] VITALS: TEMP 97.1
[2019-07-07] MEDS ORDERED: LACTATED RINGERS 1,000 ML IV ONE (08:04)
[2019-07-07 08:08] LABS: Glucose,Whole Blood 268 mg/dL (75-99)
[2019-07-07] MEDS ORDERED: INSULIN ASPART (NovoLOG) 100 UNIT/ML VIAL SQ ONE (08:09)
[2019-07-07] MEDS ORDERED: ONDANSETRON 4 MG/2 ML VIAL ONE (08:26)
[2019-07-07] MEDS ORDERED: LIDOCAINE 1% INJ 10MG/ML (20 ML MDV) ONE (08:26)
[2019-07-07] MEDS ORDERED: PROPOFOL 10 MG/ML 20 ML VIAL IV ONE (08:26)
--- NOTE | 2019-07-07 08:30 | P.GSHP ---
History of Present Illness H&P Date: 07/07/19 Chief Complaint: Dysphagia This a 66-year-old female with history of dysphagia. Patient is today for EGD with balloon dilatation. He says. History of gastric sleeve surgery. She was thought to have some stenosis of the proximal gastric sleeve. Past Medical History Past Medical History: Diabetes Mellitus, Hyperlipidemia, Hypertension, Skin Disorder, Sleep Apnea/CPAP/BIPAP, Thyroid Disorder Additional Past Medical History / Comment(s): CURRENTLY AT [facility] POST GASTRIC BYPASS COMPLICATIONS. lupus, gets rash on face that comes and goes, doesn't use CPAP, diff swallowing, wt loss, "states she has vomiting" History of Any Multi-Drug Resistant Organisms: None Reported Past Surgical History: Bariatric Surgery, Breast Surgery, Orthopedic Surgery, Tubal Ligation Additional Past Surgical History / Comment(s): breast reduction, ORIF rt ankle, cyst removed from left breast, dex cataracts, eye surgery for scar tissue dex eyes after cataract surgery. Colonoscopy. EGD, gastric sleeve (May 2019), PICC line for TPN, RECENT EGD WITH DILATATION 07/02/19 Past Anesthesia/Blood Transfusion Reactions: No Reported Reaction Smoking Status: Never smoker - Past Family History Mother Family Medical History: Cancer Father Family Medical History: Cancer Medications and Allergies Home Medications Medication Instructions Recorded Confirmed Type Atorvastatin [Lipitor] 20 mg PO HS 01/20/19 07/07/19 History FLUoxetine HCL 20 mg PO HS 01/20/19 07/07/19 History FLUoxetine HCL [PROzac] 40 mg PO DAILY 01/20/19 07/07/19 History metFORMIN HCL 1,000 mg PO BID 01/20/19 07/07/19 History Omeprazole 40 mg PO DAILY #30 cap 06/12/19 07/07/19 Rx Ondansetron Odt [Zofran ODT] 4 mg PO Q8HR PRN #9 tab 06/12/19 07/07/19 Rx Simethicone 40 mg/0.6 ml Drops 40 mg PO PCHS PRN #30 ml 06/12/19 07/07/19 Rx [Mylicon Drops] Sucralfate [Carafate] 1 gm PO BID #500 ml 06/12/19 07/07/19 Rx Loratadine-Pseudoeph 5-120 mg 1 each PO Q12HR PRN tab.er.12h 06/24/19 07/07/19 Rx [Claritin-D 12 Hour] Scopolamine 1.5MG/72Hr Patch 1 patch TRANSDERM Q72H patch 06/24/19 07/07/19 Rx [TransDerm Scop] Enoxaparin [Lovenox] 100 mg SQ HS 07/01/19 07/07/19 History INSULIN LISPRO (humaLOG) [humaLOG] 0 units SQ ACHS PRN 07/01/19 07/07/19 History Insulin Glargine,Hum.rec.anlog 20 unit SQ BID 07/01/19 07/07/19 History [Basaglar Kwikpen U-100] Levothyroxine Sodium [Synthroid] 150 mcg PO DAILY 07/01/19 07/07/19 History Linagliptin [Tradjenta] 5 mg PO DAILY 07/01/19 07/07/19 History Tpn 1 applicate IV MOWEFR 07/01/19 07/07/19 History Allergies Allergy/AdvReac Type Severity Reaction Status Date / Time No Known Allergies Allergy Verified 07/07/19 07:50 Surgical - Exam Vital Signs Temp Pulse Resp BP Pulse Ox 97.1 F L 84 18 134/74 99 07/07/19 07:57 07/07/19 07:57 07/07/19 07:57 07/07/19 07:57 07/07/19 07:57 - General well developed, well nourished, no distress - Eyes PERRL - ENT normal pinna - Neck no masses - Respiratory normal expansion - Cardiovascular Rhythm: regular - Abdomen Abdomen: soft, non tender Results - Labs Abnormal Lab Results - Last 24 Hours (Table) 07/07/19 Range/Units 08:02 POC Glucose (mg/dL) 268 H (75-99) mg/dL Assessment and Plan Assessment: Patient. We'll perform EGD. With balloon dilatation
--- NOTE | 2019-07-07 08:51 | P.OP ---
Date of Procedure: 07/07/19 Preoperative Diagnosis: Dysphagia Postoperative Diagnosis: Proximal gastric sleeve stricture Procedure(s) Performed: EGD Anesthesia: MAC Surgeon: Hung Carpio Pathology: none sent Condition: stable Disposition: PACU Operative Findings: Patient's placed the operative table in the supine position. She received B sedation. The gastroscope placed oropharynx and passed in the esophagus and into the the proximal stomach. There appeared to be fluid in the proximal gastric stomach. This was aspirated. There appeared to be some narrowing of the proximal gastric sleeve. The scope was eventually positioned into the gastric sleeve and then placed into the pylorus and into the duodenum. Scope summer back brought back the area of the proximal gastric sleeve stenosis was then dilated using the 18 mm balloon. This was held in position for 3 minutes sequentially 3 times. Brought back the balloon was withdrawn. Stomach was then examined. There is no evidence of any injury to the stomach or esophagus. Scope was withdrawn for patient.
[2019-07-07 09:02] VITALS: RESP 16
[2019-07-07 09:29] VITALS: BP 106/76; PULSE 84
[2019-07-07 09:30] LABS: Glucose,Whole Blood 259 mg/dL (75-99)
[2019-07-07 09:30] LABS: Glucose,Whole Blood 272 mg/dL (75-99)
[2019-07-07] MEDS ORDERED: ONDANSETRON ODT 4 MG TAB PO ONE (10:10)
== END 2019-07-07 10:25 ==
LOC: ORWHC2ENDO 07:28
PROVIDERS: ATTEND Surgery
DX: K95.89 Other complications of other bariatric procedure (principal); R13.10 Dysphagia, unspecified; I10 Essential (primary) hypertension; E78.5 Hyperlipidemia, unspecified; E11.9 Type 2 diabetes mellitus without complications; G47.33 Obstructive sleep apnea (adult) (pediatric); K21.9 Gastro-esophageal reflux disease without esophagitis; F32.9 Major depressive disorder, single episode, unspecified; Z99.89 Dependence on other enabling machines and devices; E07.9 Disorder of thyroid, unspecified; Z98.84 Bariatric surgery status; M32.9 Systemic lupus erythematosus, unspecified; Z98.890 Other specified postprocedural states; Z98.51 Tubal ligation status; Z79.4 Long term (current) use of insulin; Z79.899 Other long term (current) drug therapy; Z79.890 Hormone replacement therapy
CPT/HCPCS: 43245; J2405; J2001; J2704; C1727

== ENCOUNTER 2019-07-14 06:09 | Day surgery (SDC) | payer MEDICARE, OTHER ==
[2019-07-11 10:45] VITALS: BMI 38.1
[~2019-07-14 06:09] MED LIST changes: -DEXAMETHASONE SOD PHOSPHATE 10 MG/ML 1 ML VIAL IV ONE; -ENOXAPARIN 40 MG/0.4 ML SYRINGE SQ ONE; +LACTATED RINGERS 1,000 ML IV SCH; -LIDOCAINE 1% 20 ML VIAL (10MG/ML) FOR IV START INTRADERMA PRN; -MIDAZOLAM 2 MG/2 ML VIAL IV PRN; -ONDANSETRON 4 MG/2 ML VIAL IVP ONE; -SCOPOLAMINE 1.5MG/72HR PATCH TRANSDERM ONE
[2019-07-14 07:06] VITALS: TEMP 97.5
[2019-07-14 07:15] LABS: Glucose,Whole Blood 275 mg/dL (75-99)
[2019-07-14] MEDS ORDERED: KETAMINE 10 MG/ML 20 ML VIAL ONE (07:41)
[2019-07-14] MEDS ORDERED: GLYCOPYRROLATE 0.2 MG/ML 2 ML VIAL ONE (07:41)
[2019-07-14] MEDS ORDERED: PROPOFOL 10 MG/ML 20 ML VIAL IV ONE (07:41)
[2019-07-14] MEDS ORDERED: fentaNYL (PF) 50 MCG/ML 2 ML AMP ONE (07:41)
[2019-07-14] MEDS ORDERED: ONDANSETRON 4 MG/2 ML VIAL ONE (07:41)
[2019-07-14] MEDS ORDERED: MIDAZOLAM 2 MG/2 ML VIAL ONE (07:41)
--- NOTE | 2019-07-14 07:50 | P.GSHP ---
History of Present Illness H&P Date: 07/14/19 Chief Complaint: Dysphagia This a 68-year-old female who's had with dysphagia. Patient underwent previous laparoscopic sleeve gastrectomy. She'll stay for EGD and possible dilation. Past Medical History Past Medical History: Diabetes Mellitus, Hyperlipidemia, Hypertension, Skin Disorder, Sleep Apnea/CPAP/BIPAP, Thyroid Disorder Additional Past Medical History / Comment(s): CURRENTLY AT [facility] POST GASTRIC BYPASS COMPLICATIONS. lupus, gets rash on face that comes and goes, doesn't use CPAP, diff swallowing, wt loss, "states she has vomiting". fell in ECF couple days ago but no injury per ECF History of Any Multi-Drug Resistant Organisms: None Reported Past Surgical History: Bariatric Surgery, Breast Surgery, Orthopedic Surgery, Tubal Ligation Additional Past Surgical History / Comment(s): breast reduction, ORIF rt ankle, cyst removed from left breast, dex cataracts, eye surgery for scar tissue dex eyes after cataract surgery. Colonoscopy. EGD, gastric sleeve (May 2019), PICC line for TPN, RECENT EGD's Past Anesthesia/Blood Transfusion Reactions: No Reported Reaction Smoking Status: Never smoker - Past Family History Mother Family Medical History: Cancer Father Family Medical History: Cancer Medications and Allergies Home Medications Medication Instructions Recorded Confirmed Type Atorvastatin [Lipitor] 20 mg PO HS 01/20/19 07/11/19 History FLUoxetine HCL 20 mg PO HS 01/20/19 07/11/19 History FLUoxetine HCL [PROzac] 40 mg PO DAILY 01/20/19 07/11/19 History metFORMIN HCL 1,000 mg PO BID 01/20/19 07/11/19 History Simethicone 40 mg/0.6 ml Drops 40 mg PO PCHS PRN #30 ml 06/12/19 07/11/19 Rx [Mylicon Drops] Sucralfate [Carafate] 1 gm PO BID #500 ml 06/12/19 07/11/19 Rx Loratadine-Pseudoeph 5-120 mg 1 each PO Q12HR PRN tab.er.12h 06/24/19 07/11/19 Rx [Claritin-D 12 Hour] Scopolamine 1.5MG/72Hr Patch 1 patch TRANSDERM Q72H patch 01/07/20 01/24/20 Rx [TransDerm Scop] INSULIN LISPRO (humaLOG) [humaLOG] 0 units SQ ACHS PRN 07/01/19 07/11/19 History Insulin Glargine,Hum.rec.anlog 20 unit SQ BID 07/01/19 07/11/19 History [Basaglar Kwikpen U-100] Levothyroxine Sodium [Synthroid] 150 mcg PO DAILY 07/01/19 07/11/19 History Linagliptin [Tradjenta] 5 mg PO DAILY 07/01/19 07/11/19 History Tpn 1 applicate IV MOWEFR 07/01/19 07/11/19 History Omeprazole 40 mg PO DAILY 07/11/19 07/11/19 History Ondansetron Odt [Zofran ODT] 4 mg PO Q6HR PRN 07/11/19 07/11/19 History Allergies Allergy/AdvReac Type Severity Reaction Status Date / Time No Known Allergies Allergy Verified 07/14/19 07:08 Surgical - Exam Vital Signs Temp Pulse Resp BP Pulse Ox 97.5 F L 60 18 94/69 94 L 07/14/19 07:04 07/14/19 07:04 07/14/19 07:04 07/14/19 07:04 07/14/19 07:04 - General well developed, well nourished, no distress - Eyes PERRL - ENT normal pinna - Neck no masses - Respiratory normal expansion - Cardiovascular Rhythm: regular - Abdomen Abdomen: soft, non tender Results - Labs Abnormal Lab Results - Last 24 Hours (Table) 07/14/19 Range/Units 07:12 POC Glucose (mg/dL) 275 H (75-99) mg/dL Assessment and Plan Assessment: She dysphagia We'll perform EGD with dilation of gastric sleeve
--- NOTE | 2019-07-14 08:09 | P.OP ---
Date of Procedure: 07/14/19 Preoperative Diagnosis: Dysphagia Postoperative Diagnosis: Aphasia secondary to proximal gastric sleeve stricture Procedure(s) Performed: EGD with balloon dilatation of proximal gastric sleeve Anesthesia: MAC Surgeon: Hung Carpio Pathology: none sent Condition: stable Disposition: PACU Description of Procedure: The patient's placed on the endoscopy table lateral position. She received IV station. The gastroscope placed oropharynx passed in the esophagus. At the distal esophagus or some evidence of some mild esophagitis. The scope was then placed and stomach. And at the proximal gastric sleeve appeared to be a slight stricture. The gastroscope was then maneuvered into the gastric sleeve. And then through the pylorus and the first and second portion of duodenum. Scope summer back antrum this appeared normal. Scope was withdrawn the gaseously gastric sleeve appeared patent. At the level of proximal gastric sleeve appeared to be a narrowing it was unsure if this is due to torsion of the sleeve. At this point the 20 mm balloon was placed across the stricture and held in position. The dilation occurred 3 times. The balloon was held position for approximately 3 minutes each time. The balloon was then removed. The gastroscope was easily passed through the area of stricture of the scope was then withdrawn there is no evidence of any injury to the stomach or esophagus. Scope was withdrawn for patient.
[2019-07-14 08:29] VITALS: BP 136/89
[2019-07-14 08:36] LABS: Glucose,Whole Blood 300 mg/dL (75-99)
[2019-07-14] MEDS ORDERED: INSULIN ASPART (NovoLOG) 100 UNIT/ML VIAL SQ ONE (08:44)
[2019-07-14 08:45] VITALS: PULSE 99; RESP 17
[2019-07-14 09:16] LABS: Glucose,Whole Blood 254 mg/dL (75-99)
--- NOTE | 2019-07-14 11:00 | FL ---
EXAMINATION TYPE: FL UGI w esophagus DATE OF EXAM: 07/14/2019 LIMITED UGI: CLINICAL HISTORY: History of gastric sleeve surgery June 06, 2019 with persistent dysphagia, 2 e pisodes of endoscopic dilatation last one earlier today. TECHNIQUE: Limited upper GI/esophagram is performed utilizing 25 oz of Isovue-370. A total of 77 sec onds of fluoroscopic time was utilized during procedure. 16 images were saved to PACS. COMPARISON: CT abdomen and pelvis June 14, 2019. Prior esophagram June 16, 2019 and older up per GI studies back to rule June 06, 2019. FINDINGS: The patient swallowed contrast was some difficulty and delay. Esophageal peristalsis and motility are felt satisfactory. There is some flow contrast along the diaphragmatic hiatus into prox imal stomach. There is no flow from this stomach bubble with contrast air level even after 20 minutes , 10 minute image shows suggestion of some contrast trying to go through thin channel along inferior left aspect. Patient was nauseous before and during study. No vomiting occurred. Partial visualizatio n of scoliotic curvature along with left-sided PICC line and epigastric sutures and clips noted. IMPRESSION: No evidence of leak but there is significant obstruction status post recent gastric sleev e surgery despite endoscopic dilatation earlier today. In reviewing prior studies there appears there has been suture failure in the proximal to midportion of the sleeve with a abnormal outpouching in t he proximal esophagus present on CT June 14, 2019, this is also present on esophagram after initi al esophagram performed June 06, 2019. No leak noted. Ordering physician made aware of results of severe obstruction by x-ray technologist shortly after ex am was terminated. A Document Only message has been documented for Hung Carpio MD in the [employer] Critical Result system on 07/14/2019 10:57 AM, Message ID [id number].
== END 2019-07-14 09:23 | disposition home or self-care (01) ==
LOC: ORWHC2ENDO 06:09
PROVIDERS: ATTEND Surgery
DX: K95.89 Other complications of other bariatric procedure (principal); K31.89 Other diseases of stomach and duodenum; K20.9 Esophagitis, unspecified; Z90.3 Acquired absence of stomach [part of]; Z98.84 Bariatric surgery status; E11.9 Type 2 diabetes mellitus without complications; E78.5 Hyperlipidemia, unspecified; I10 Essential (primary) hypertension; G47.30 Sleep apnea, unspecified; E07.9 Disorder of thyroid, unspecified; L93.0 Discoid lupus erythematosus; F32.9 Major depressive disorder, single episode, unspecified; E66.01 Morbid (severe) obesity due to excess calories; Z79.899 Other long term (current) drug therapy; Z79.890 Hormone replacement therapy; Z79.4 Long term (current) use of insulin; Z98.890 Other specified postprocedural states; Z98.51 Tubal ligation status; Z98.42 Cataract extraction status, left eye; Z98.41 Cataract extraction status, right eye; Z80.9 Family history of malignant neoplasm, unspecified; Z87.891 Personal history of nicotine dependence; Z68.38 Body mass index [BMI] 38.0-38.9, adult
CPT/HCPCS: 74240; 43245; J2250; J2405; J3010; J2704; Q9967; C1726

== ENCOUNTER 2019-07-14 11:24 | Inpatient (IN) | payer MEDICARE, OTHER ==
[2019-07-14] MEDS ORDERED: NALOXONE 0.4 MG/ML 1 ML VIAL IV PRN (13:36)
[2019-07-14 15:19] VITALS: BMI 36.5
--- NOTE | 2019-07-14 15:48 | P.GSHP ---
History of Present Illness H&P Date: 07/14/19 Chief Complaint: Dysphagia This a 66-year-old female who was admitted due to dysphagia. Patient went gastric sleeve surgery approximately month ago. She's had progressive dysphagia. Patient had a EGD with dilation. The patient appears to have stenosis or scarring or a torsion of the proximal gastric sleeve her postprocedure esophagram shows significant obstruction of the proximal gastric sleeve. Patient is being admitted for hydration and reevaluation with repeat es ophagram in the a.m. Past Medical History Past Medical History: Diabetes Mellitus, Hyperlipidemia, Hypertension, Skin Disorder, Sleep Apnea/CPAP/BIPAP, Thyroid Disorder Additional Past Medical History / Comment(s): CURRENTLY AT [facility] POST GASTRIC BYPASS COMPLICATIONS. lupus, gets rash on face that comes and goes, doesn't use CPAP, diff swallowing, wt loss, "states she has vomiting". fell in ECF couple days ago but no injury per ECF History of Any Multi-Drug Resistant Organisms: None Reported Past Surgical History: Bariatric Surgery, Breast Surgery, Orthopedic Surgery, Tubal Ligation Additional Past Surgical History / Comment(s): breast reduction, ORIF rt ankle, cyst removed from left breast, dex cataracts, eye surgery for scar tissue dex eyes after cataract surgery. Colonoscopy. EGD, gastric sleeve (May 2019), PICC line for TPN, RECENT EGD's Past Anesthesia/Blood Transfusion Reactions: No Reported Reaction Past Psychological History: Depression Additional Psychological History / Comment(s): . Smoking Status: Never smoker Past Alcohol Use History: None Reported, Rare Additional Past Alcohol Use History / Comment(s): quit smoking 2013, smoked for 5 yrs est, 1 PPD Past Drug Use History: None Reported - Past Family History Mother Family Medical History: Cancer Father Family Medical History: Cancer Medications and Allergies Home Medications Medication Instructions Recorded Confirmed Type Atorvastatin [Lipitor] 20 mg PO HS 01/20/19 07/14/19 History FLUoxetine HCL 20 mg PO HS 01/20/19 07/14/19 History FLUoxetine HCL [PROzac] 40 mg PO DAILY 01/20/19 07/14/19 History metFORMIN HCL 1,000 mg PO BID 01/20/19 07/14/19 History Scopolamine 1.5MG/72Hr Patch 1 patch TRANSDERM Q72H patch 06/24/19 07/14/19 Rx [TransDerm Scop] INSULIN LISPRO (humaLOG) [humaLOG] See Protocol SQ ACHS PRN 07/01/19 07/14/19 History Insulin Glargine,Hum.rec.anlog 20 unit SQ BID 07/01/19 07/14/19 History [Basaglar Kwikpen U-100] Tpn 1 dose IV MOWEFR 07/01/19 07/14/19 History Omeprazole 40 mg PO DAILY 07/11/19 07/14/19 History Ondansetron Odt [Zofran ODT] 4 mg PO Q8H PRN 07/11/19 07/14/19 History Levothyroxine Sodium [Synthroid] 125 mcg PO DAILY 07/14/19 07/14/19 History Loratadine-Pseudoeph 5-120 mg 1 tab PO Q12HR PRN 07/14/19 07/14/19 History [Claritin-D 12 Hour] Nystatin 100,000 Unit/gm Powd 1 applic TOPICAL TID 07/14/19 07/14/19 History [Mycostatin Powder] glipiZIDE [Glucotrol] 10 mg PO AC-BRKFST 07/14/19 07/14/19 History sitaGLIPtin [Januvia] 100 mg PO DAILY 07/14/19 07/14/19 History Allergies Allergy/AdvReac Type Severity Reaction Status Date / Time No Known Allergies Allergy Verified 07/14/19 14:13 Surgical - Exam Vital Signs Temp Pulse Resp BP Pulse Ox 97.7 F 88 17 101/48 98 07/14/19 14:59 07/14/19 14:59 07/14/19 14:59 07/14/19 14:59 07/14/19 14:59 - General well developed, well nourished, no distress - Eyes PERRL - ENT normal pinna - Neck no masses - Respiratory normal expansion - Cardiovascular Rhythm: regular - Abdomen Abdomen: soft, non tender Assessment and Plan Assessment: Dysphagia or to proximal gastric sleeve stenosis or torsion. Patient received fluid hydration overnight. We will plan for repeat esophagram in the a.m.
[2019-07-14] MEDS ORDERED: MVI, ADULT NO.4 WITH VIT K 10 ML, TRACE (CONC-1ML/DOSE) 1 ML in AMINO ACID 4.25%-D10W+L... IV ONE ×3 (16:00)
[2019-07-14 16:46] LABS: Ionized Calcium 4.7 mg/dL (4.5-5.3)
[2019-07-14 16:51] LABS: Calcium 9.3 mg/dL (8.4-10.2); Magnesium 1.8 mg/dL (1.6-2.3); Phosphorus 5.6 mg/dL (2.5-4.5); Potassium 4.5 mmol/L (3.5-5.1)
[2019-07-14 16:55] LABS: Glucose,Whole Blood 193 mg/dL (75-99)
[2019-07-14] MEDS: SODIUM CHLORIDE 0.9% 1,000 ML IV SCH (17:01)
[2019-07-14] MEDS: HEPARIN SODIUM,PORCINE 5,000 UNIT/ML 1 ML VIAL SQ SCH (17:01)
[2019-07-14] MEDS ORDERED: INSULIN ASPART (NovoLOG) 100 UNIT/ML VIAL SQ SCH (17:30)
[2019-07-14] MEDS ORDERED: FAT EMULSION 20% 250 ML in EMPTY BAG 1 BAG IV SCH (18:00)
[2019-07-14 20:30] LABS: Glucose,Whole Blood 160 mg/dL (75-99)
[2019-07-15 00:30] LABS: Glucose,Whole Blood 123 mg/dL (75-99)
[2019-07-15] MEDS: INSULIN ASPART (NovoLOG) 100 UNIT/ML VIAL SQ SCH ×5 (00:32→23:36)
[2019-07-15] MEDS: SODIUM CHLORIDE 0.9% 1,000 ML IV SCH ×3 (00:38→21:41)
[2019-07-15] MEDS: HEPARIN SODIUM,PORCINE 5,000 UNIT/ML 1 ML VIAL SQ SCH ×4 (00:39→23:37)
[2019-07-15 05:56] LABS: Glucose,Whole Blood 143 mg/dL (75-99)
--- NOTE | 2019-07-15 06:17 | CONS ---
CONSULTATION DATE OF SERVICE: 07/14/2019 REASON FOR CONSULTATION: Advice regarding diabetes mellitus and multiple other medical issues requested by Dr. Carpio. HISTORY OF PRESENT ILLNESS: This 68-year-old woman with a past medical history of multiple medical problems, has recently had laparoscopic gastric sleeve surgery. The patient had a persistent nausea, vomiting during that time. The patient was started on TPN and was sent to [facility] in [place] because of recurrence of symptoms. Dr. Carpio admitted the patient and the patient underwent EGD with dilatation for progressive dysphagia. The patient appears to have stenosis, scarring or torsion of the proximal gastric sleeve per Dr. Carpio. There is no history of any fever or rigors. No history of headache, loss of consciousness, or seizures. Patient is still receiving TPN at this time. PAST MEDICAL HISTORY: History of recent gastric sleeve surgery, diabetes mellitus, hypertension, hyperlipidemia, hypothyroidism, history of bariatric surgery. MEDICATIONS: Medications prior, the home medications: 1. Januvia 100 mg p.o. daily. 2. Metformin 1000 mg p.o. b.i.d. 3. Glucotrol 10 mg with breakfast. 4. TPN. 5. Scopolamine 1.5 mg per 72 hours. 6. Zofran 4 mg q.8 p.r.n. 7. Omeprazole 40 mg p.o. daily. 8. Nystatin. 9. Claritin-D one p.o. b.i.d. 10.Levothyroxine 125 mcg p.o. daily. 11.Lantus 20 units subcu b.i.d. 12.Lispro q.a.c. and at bedtime. 13.Prozac 40 mg p.o. daily. 14.Prozac mg at bedtime. 15.Lipitor 20 mg at bedtime. ALLERGIES: None. FAMILY HISTORY: History of cancer in the family. SOCIAL HISTORY: No history of smoking. No alcohol intake. REVIEW OF SYSTEMS: ENT: No diminished hearing or diminished vision. CARDIOVASCULAR SYSTEM: No angina. RESPIRATORY SYSTEM: As mentioned earlier. GI: As mentioned earlier. : No dysuria. NERVOUS SYSTEM: No numbness or weakness. ALLERGY/IMMUNOLOGY: No asthma or hayfever. MUSCULOSKELETAL: As mentioned earlier. HEMATOLOGY: No history of anemia. ENDOCRINE: As mentioned earlier. CONSTITUTIONAL: As mentioned earlier. DERMATOLOGY: Negative. RHEUMATOLOGY: Negative. PSYCHIATRY: As mentioned earlier. PHYSICAL EXAMINATION: The patient is alert and oriented x3. Pulse is 85, blood pressure 95/63, respirations 16, temperature 98.3, pulse ox 98% on room air. HEENT: Conjunctivae normal. NECK: No jugular venous distention. CARDIOVASCULAR: S1, S2 muffled. RESPIRATORY: Breath sounds diminished at the bases. No rhonchi. No crackles. ABDOMEN: Soft, obese, status post surgery. LEGS: No edema, no swelling. NERVOUS SYSTEM: As mentioned earlier. Moves all 4 limbs. No focal motor or sensory deficit. LYMPHATICS: No lymphadenopathy of the neck, axillae or groin. SKIN: No ulcer, rash or bleeding. JOINTS: No active deforming arthropathy. LABS: Labs at this time shows the sodium 137, potassium 4.5, creatinine is 1.89. ASSESSMENT: 1. Status post EGD dilatation for dysphagia secondary to stenosis, scarring or torsion of the proximal gastric sleeve. 2. Dehydration with acute renal failure with acute tubular necrosis. 3. Diabetes mellitus type 2. 4. Hypertension. 5. Hyperlipidemia. 6. Obesity with body mass index of 36.5. 7. History of sleep apnea. 8. History of lupus. 9. Gait dysfunction. 10.Depression. 11.History of nonobstructing right renal calculus. 12.Sleep apnea. 13.Hypothyroidism. 14.History of ORIF of the right ankle. 15.FULL CODE. RECOMMENDATIONS AND DISCUSSION: This 68-year-old woman presented with multiple complex medical issues, we will monitor the patient closely. Continue the current medications. I would recommend to follow the patient closely with surgery regarding the obstruction as described above and as well as in the surgical records. Otherwise, I would recommend continue the TPN. Monitor blood sugars closely. Continue the rest of medications. Overall prognosis guarded because of multiple complex medical issues. We will adjust the dose of insulin and further recommendations to follow. A copy of dictation forwarded to Dr. Alli Salter who is the primary physician. Thank you Dr. Carpio for letting us participate in the care this patient. MMODL / IJN: [id number] / MTDD
[2019-07-15] MEDS ORDERED: ONDANSETRON 4 MG/2 ML VIAL IVP PRN (06:18)
[2019-07-15 07:07] LABS: Glucose,Whole Blood 172 mg/dL (75-99)
[2019-07-15 07:53] LABS: Basophils # (A) 0.1 k/uL (0-0.2); Basophils % (A) 2 %; Eosinophils # (A) 0.1 k/uL (0-0.7); Eosinophils % (A) 2 %; HCT 41.1 % (34.0-46.0); HGB 13.2 gm/dL (11.4-16.0); Lymphocytes # (A) 1.4 k/uL (1.0-4.8); Lymphocytes % (A) 22 %; MCH 29.4 pg (25.0-35.0); MCV 91.8 fL (80.0-100.0); Mean Platelet Volume 8.3; Monocytes # (A) 0.6 k/uL (0-1.0); Monocytes % (A) 9 %; Neutrophils # (A) 4.1 k/uL (1.3-7.7); Neutrophils % (A) 63 %; Platelet Count 240 k/uL (150-450); RBC 4.48 m/uL (3.80-5.40); WBC 6.4 k/uL (3.8-10.6)
[2019-07-15 08:09] LABS: Calcium 8.6 mg/dL (8.4-10.2); Magnesium 1.7 mg/dL (1.6-2.3); Phosphorus 3.5 mg/dL (2.5-4.5); Potassium 3.9 mmol/L (3.5-5.1)
[2019-07-15] MEDS ORDERED: 1: MVI, ADULT NO.4 WITH VIT K 10 ML, TRACE (CONC-1ML/DOSE) 1 ML in AMINO ACID 4.25%-D10W IV SCH ×3 (09:00)
[2019-07-15] MEDS ORDERED: PANTOPRAZOLE 40 MG/10 ML VIAL IVP SCH (09:00)
[2019-07-15] MEDS: MAGNESIUM SULFATE-D5W PMX 1 GM in DEXTROSE/WATER 1 100ML.BAG IVPB SCH ×2 (09:02→11:18)
--- NOTE | 2019-07-15 09:50 | FL ---
Sleeve gastrectomy esophogram. EXAMINATION TYPE: FL UGI w esophagus DATE OF EXAM: 07/15/2019 9:41 AM CLINICAL HISTORY: Follow-up obstruction COMPARISON: 07/14/2019 Sleeve gastrectomy esophagram and upper GI was performed following the ingestion of gastrografin. Th e patient swallowed Omnipaque without. Noted are changes of sleeve gastrectomy. There is complete obs truction at the proximal component of the sleeve gastrectomy unchanged from yesterday's study. No nicole dence for leak. IMPRESSION: There is complete obstruction at the proximal component of the sleeve gastrectomy unchanged from yest erdlidia's study.
[2019-07-15 11:46] LABS: Glucose,Whole Blood 226 mg/dL (75-99)
--- NOTE | 2019-07-15 12:30 | P.PN ---
Progress Note - Text Progress Note Date: 07/15/19 The patient's esophagram performed today shows obstruction of the proximal gastric sleeve. I discussed these fundoplication. I recommended transfer to tertiary care center for further intervention.
--- NOTE | 2019-07-15 12:32 | P.DS ---
Providers Date of admission: 07/14/19 12:37 Expected date of discharge: 07/15/19 Attending physician: Hung Carpio Consults: 07/14/19 13:35 Consult Physician Routine Consulting Provider: Elena López Consult Reason/Comments: medical management Do you want consulting provider notified?: Yes Placement Type Exists?: Yes Primary care physician: Rhianna Lopez [facility] Hospital Course: This is a pleasant 68-year-old female who underwent laparoscopic sleeve gastrectomy approximate 6 weeks ago. Patient has developed progressive dysphagia over the last few weeks. She is undergoing 2 EGDs with dilatation of proximal gastric sleeve. Patient is still acting clinically obstructed. Her esophagram shows evidence of narrowing of the proximal gastric sleeve. It is unsure if this is due to a portion of the sleeve or stenosis of the proximal gastric sleeve. The patient underwent EGD with balloon dilatation. She still has significant dysphagia today. The patient will be transferred [facility] for further intervention. Procedures: EGD Patient Condition at Discharge: Good Plan - Discharge Summary New Discharge Prescriptions: No Action metFORMIN HCL 1,000 mg PO BID FLUoxetine HCL [PROzac] 40 mg PO DAILY FLUoxetine HCL 20 mg PO HS Atorvastatin [Lipitor] 20 mg PO HS Scopolamine 1.5MG/72Hr Patch [TransDerm Scop] 1 patch TRANSDERM Q72H patch Insulin Glargine,Hum.rec.anlog [Basaglar Kwikpen U-100] 20 unit SQ BID Tpn 1 dose IV MOWEFR INSULIN LISPRO (humaLOG) [humaLOG] See Protocol SQ ACHS PRN PRN Reason: Blood Sugar - High Omeprazole 40 mg PO DAILY Ondansetron Odt [Zofran ODT] 4 mg PO Q8H PRN PRN Reason: Nausea sitaGLIPtin [Januvia] 100 mg PO DAILY glipiZIDE [Glucotrol] 10 mg PO AC-BRKFST Nystatin 100,000 Unit/gm Powd [Mycostatin Powder] 1 applic TOPICAL TID Levothyroxine Sodium [Synthroid] 125 mcg PO DAILY Loratadine-Pseudoeph 5-120 mg [Claritin-D 12 Hour] 1 tab PO Q12HR PRN PRN Reason: Congestion Discharge Medication List Atorvastatin [Lipitor] 20 mg PO HS 01/20/19 [History] FLUoxetine HCL 20 mg PO HS 01/20/19 [History] FLUoxetine HCL [PROzac] 40 mg PO DAILY 01/20/19 [History] metFORMIN HCL 1,000 mg PO BID 01/20/19 [History] Scopolamine 1.5MG/72Hr Patch [TransDerm Scop] 1 patch TRANSDERM Q72H patch 06/24/19 [Rx] INSULIN LISPRO (humaLOG) [humaLOG] See Protocol SQ ACHS PRN 07/01/19 [History] Insulin Glargine,Hum.rec.anlog [Basaglar Kwikpen U-100] 20 unit SQ BID 07/01/19 [History] Tpn 1 dose IV MOWEFR 07/01/19 [History] Omeprazole 40 mg PO DAILY 07/11/19 [History] Ondansetron Odt [Zofran ODT] 4 mg PO Q8H PRN 07/11/19 [History] Levothyroxine Sodium [Synthroid] 125 mcg PO DAILY 07/14/19 [History] Loratadine-Pseudoeph 5-120 mg [Claritin-D 12 Hour] 1 tab PO Q12HR PRN 07/14/19 [History] Nystatin 100,000 Unit/gm Powd [Mycostatin Powder] 1 applic TOPICAL TID 07/14/19 [History] glipiZIDE [Glucotrol] 10 mg PO AC-BRKFST 07/14/19 [History] sitaGLIPtin [Januvia] 100 mg PO DAILY 07/14/19 [History] Discharge Disposition: OTHER INSTITUTION NOT DEFINED
[2019-07-15 16:48] LABS: Glucose,Whole Blood 204 mg/dL (75-99)
--- NOTE | 2019-07-15 17:31 | PN ---
PROGRESS NOTE DATE OF SERVICE: 07/15/2019 This 68-year-old woman who was admitted with dysphagia initially had EGD and dilatation and the upper barium showed complete obstruction of the proximal component of the sleeve gastrectomy, unchanged from yesterday's study, so Dr. Carpio is planning the patient to be transferred elsewhere as well. The patient is on TPN. Blood sugars are being monitored. Creatinine is 1.42, which is slightly improved from 1.89 yesterday. Past medical history reviewed. REVIEW OF SYSTEMS: CARDIOVASCULAR SYSTEM: No angina, palpitations. RESPIRATORY SYSTEM: As mentioned earlier. GI: As mentioned earlier. : As mentioned earlier. CURRENT MEDICATIONS: Reviewed. They include: 1. TPN (q.8). 2. Narcan. 3. Zofran. 4. Protonix 40 mg b.i.d. PHYSICAL EXAMINATION: Patient is alert, oriented x3. Pulse 81, blood pressure 101/60, respirations 17, temperature 98.3, pulse ox 99% on room air. HEENT: Conjunctivae normal. NECK: No jugular venous distention. CARDIOVASCULAR SYSTEM: S1, S2 muffled. RESPIRATORY SYSTEM: Breath sounds diminished at the bases. A few scattered rhonchi and crackles. Expiratory wheezing also present. ABDOMEN: Soft, obese. Status post surgery. LEGS: No edema. No swelling. NERVOUS SYSTEM: No focal deficit. LABS: CBC within normal limits. Sodium 138, potassium 3.9, creatinine 1.42. ASSESSMENT: 1. Status post esophagogastroduodenoscopy and dilatation for dysphagia secondary to complete obstruction of the proximal component of sleeve gastrectomy. 2. Dehydration with acute renal failure with acute tubular necrosis, prerenal renal failure, present on admission. 3. Diabetes mellitus, type 2. 4. Hypertension. 5. On total parenteral nutrition. 6. Hyperlipidemia. 7. Obesity with body mass index of 36.5. 8. History of sleep apnea. 9. History of lupus. 10.History of gait dysfunction. 11.History of depression. 12.History of nonobstructing right renal calculus. 13.Sleep apnea. 14.Hypothyroidism. 15.History of open reduction internal fixation of the right ankle. 16.FULL CODE. RECOMMENDATIONS AND DISCUSSION: I recommend to continue current medications, continue with the monitoring, symptomatic treatment. Continue with the TPN. Monitor blood sugars closely. Continue the IV fluids. Monitor creatinine closely. Otherwise, rest of the recommendations and management per Dr. Carpio. Stable, but overall prognosis is guarded because of multiple complex medical issues. Further recommendations to follow. MMODL / IJN: [id number] / MTDD
[2019-07-15] MEDS: 1: MVI, ADULT NO.4 WITH VIT K 10 ML, TRACE (CONC-1ML/DOSE) 1 ML, PARENTERAL ELECTROLYTES IV SCH ×8 (17:41→21:39)
[2019-07-15 19:35] VITALS: BP 102/58; PULSE 84; RESP 18; TEMP 98.8
[2019-07-15 23:41] LABS: Glucose,Whole Blood 228 mg/dL (75-99)
== END 2019-07-15 23:57 | disposition short-term general hospital (02) | DRG 393 ==
LOC: 4SSUR 12:37
PROVIDERS: ADMIT Surgery; ATTEND Surgery
PROC: 3E0436Z Introduction of Nutritional Substance into Central Vein, Percutaneous Approach (ICD-10-PCS; principal; 2019-07-14)
DX: K95.89 Other complications of other bariatric procedure (principal); N17.0 Acute kidney failure with tubular necrosis; R13.10 Dysphagia, unspecified; R11.2 Nausea with vomiting, unspecified; E03.9 Hypothyroidism, unspecified; E78.5 Hyperlipidemia, unspecified; E86.0 Dehydration; I10 Essential (primary) hypertension; F32.9 Major depressive disorder, single episode, unspecified; G47.30 Sleep apnea, unspecified; E11.9 Type 2 diabetes mellitus without complications; R26.9 Unspecified abnormalities of gait and mobility; E66.9 Obesity, unspecified; Z68.36 Body mass index [BMI] 36.0-36.9, adult; Z79.890 Hormone replacement therapy; Z79.4 Long term (current) use of insulin; Z79.899 Other long term (current) drug therapy; Z71.3 Dietary counseling and surveillance; Z87.891 Personal history of nicotine dependence; Z98.51 Tubal ligation status; Z98.84 Bariatric surgery status; Z87.442 Personal history of urinary calculi; Z87.39 Personal history of other diseases of the musculoskeletal system and connective tissue; Z87.81 Personal history of (healed) traumatic fracture; Z98.42 Cataract extraction status, left eye; Z98.41 Cataract extraction status, right eye; Z98.890 Other specified postprocedural states; Y84.9 Medical procedure, unspecified as the cause of abnormal reaction of the patient, or of later complication, without mention of misadventure at the time of the procedure; Z80.9 Family history of malignant neoplasm, unspecified
CPT/HCPCS: 43245; 74240; 80048; 82330; 83735; 84100; 84478; 85025

== ENCOUNTER → 2019-09-29 | Outpatient (CLI) | payer MEDICARE, OTHER ==
[2019-09-29 13:31] VITALS: BP 90/69; PULSE 108; TEMP 97.4
== END | disposition home or self-care (01) ==
LOC: BARWHC3 12:49
PROVIDERS: ATTEND Surgery
DX: E66.01 Morbid (severe) obesity due to excess calories (principal)
CPT/HCPCS: 99211